=== PATIENT | female | born 1965 | race Caucasian/White ===

== ENCOUNTER 2018-02-26 08:24 | Emergency (ER) | payer OTHER, SELFPAY ==
[2018-02-26 08:24] VITALS: BP 124/75; PULSE 65; RESP 15; TEMP 36.3; O2SAT 99; BMI 23.6
--- NOTE | 2018-02-26 08:35 | ED.VISSUMM ---
- ER Visit Summary Date of Service: 02/26/18 Chief Complaint: Abdominal pain History of Present Illness: The patient is a 53 F presenting with abdominal pain. States it started around 4 AM. She has pain in the epigastric and right upper quadrant. She has nausea with no vomiting. She denies fever. She has had a decreased appetite. Denies history of similar complaints. Physical Examination: Vitals are stable. Patient is afebrile. Alert no acute distress. HEENT exam is unremarkable. Neck is supple. Lungs are clear and equal bilaterally. Heart is regular rate and rhythm. Abdomen is soft RUQ and epigastric tenderness, no rebound or guarding. Extremities are unremarkable. Skin is warm and dry. Remainder of exam is unremarkable. Emergency Department Course and Treatment: Patient given IV fluids, morphine, Zofran. CBC, chemistries unremarkable. Total bili 1.0, lipase 147. Troponin is negative. Delta troponin is negative. EKG is sinus rate of 83 with no acute ischemic changes. Ultrasound of the gallbladder shows small amount of gallbladder sludge without significant wall thickening or pericholecystic fluid. Small anechoic liver cyst. Patient is resting comfortably on repeat evaluation. She is given a prescription for Bentyl and Zofran. She is advised to follow-up with her primary care physician and Dr. Zhang as an outpatient. Advised return to ED for worsening complaints. Disposition: Discharge home Impression: Abdominal pain This note was generated with [employer] dictation software. It may contain incorrect words, spelling, and punctuation that were not noted in review of the chart prior to signing ED Disposition - Plan for ED Patient: Chief Complaint: Abd Pain Instructions: ED Abdominal Pain Unkn Cause Prescriptions: Ondansetron [Zofran Odt] 4 mg PO Q8H PRN PRN #10 tablet PRN Reason: Nausea Dicyclomine HCl [Bentyl] 20 mg PO TIDAC #20 capsule Referrals: Abbe Cabezas DO [Primary Care Provider] - Vadim Zhang MD [STAFF PHYSICIAN] -
[2018-02-26] MEDS: 0.9% Normal Saline 1,000 ML 1000 ML IV (08:57)
[2018-02-26] MEDS: Ondansetron 4 MG/2 ML Vial IV (08:57)
[2018-02-26] MEDS: Morphine 4 MG/ML Syringe IV (08:59)
[2018-02-26 09:06] LABS: Absolute Lymphocyte Count 0.97 X10^3/ul (0.83-4.51); Absolute Neutrophil Count 3.5 X10^3/uL (2.0-7.7); Basophil# 0.01 X10^3/uL; Basophil% 0.2 % (0-1); Eosinophil# 0.05 X10^3/uL; Hematocrit 40.1 % (37-47); Hemoglobin 13.3 g/dl (12.0-15.0); Lymphocyte # 0.97 X10^3/ul (4.0); Lymphocyte % 19.7 % (19-41); Mean Corp Hgb Conc 33.2 g/gl (32-36); Mean Corpuscular Hgb 30.4 pg (27.0-32.0); Mean Corpuscular Volume 91.6 fL (81-99); Mean Platelet Vol. 9.1 fl (6.2-12.0); Monocyte# 0.34 X10^3/uL; Monocyte% 6.9 % (0-10); Neutrophil # 3.54 X10^3/uL (2.7-7.7); POSITIVE COUNT NO; POSITIVE DIFFERENTIAL NO; POSITIVE MORPHOLOGY NO; Platelet Count 217 K/mm3 (150-450); RBC Distribution Width CV 12.4 % (11.6-14.6); RBC Distribution Width SD 41.4 fl (35.1-43.9); Red Blood Count 4.38 M/mm3 (4.2-5.4); White Blood Count 4.9 K/mm3 (4.4-11.0)
[2018-02-26 09:21] LABS: AST(SGOT) 16 U/L (15-37); Alanine Aminotransfer ALT/SGPT 27 U/L (13-56); Albumin, Serum 3.9 g/dL (3.2-5.0); Alkaline Phosphatase 69 U/L (45-117); Anion Gap 7 (5-15); BUN 12 mg/dL (7-18); BUN/Creat Ratio 15.1 RATIO (10-20); Bilirubin, Direct 0.25 mg/dL (0.00-0.30); Calcium,Total 8.8 mg/dL (8.5-10.1); Chloride 112 mmol/L (98-107); EST Glomerular Filtration Rate 81 mL/min (>60); Est Glom Filt Rate - Afr Amer 97 mL/min (>60); Estimated Creatinine Clearance 88.95 ml/min; Globulin 2.8 g/dL (2.2-4.2); Glucose 100 mg/dL (74-106); Lipase 147 U/L (73-393); Potassium 3.9 mmol/L (3.5-5.1); Protein, Total 6.7 g/dL (6.4-8.2); Sodium Level 143 mmol/L (136-145)
[2018-02-26 10:30] VITALS: BP 109/64; PULSE 68; RESP 16; O2SAT 100
[2018-02-26 12:16] VITALS: BP 97/63; PULSE 70; RESP 18; O2SAT 100
--- NOTE | 2018-02-26 12:36 | ED.DEP ---
ED Disposition - Plan for ED Patient: Chief Complaint: Abd Pain Instructions: ED Abdominal Pain Unkn Cause Prescriptions: Ondansetron [Zofran Odt] 4 mg PO Q8H PRN PRN #10 tablet PRN Reason: Nausea RX: Dicyclomine HCl [Bentyl] 20 mg PO TIDAC #20 capsule Referrals: Abbe Cabezas DO [Primary Care Provider] - Vadim Zhang MD [STAFF PHYSICIAN] -
[2018-02-26 12:48] VITALS: BP 97/60; PULSE 70; RESP 14; O2SAT 100
== END 2018-02-26 12:49 | disposition home or self-care (01) ==
PROVIDERS: Emergency Provider Emergency Medicine; Family Provider Student in an Organized Health Care Education/Training Program; PCP Student in an Organized Health Care Education/Training Program
DX: R10.11 Right upper quadrant pain (principal); R10.13 Epigastric pain; G43.909 Migraine, unspecified, not intractable, without status migrainosus; Z79.899 Other long term (current) drug therapy
CPT/HCPCS: 76705; 80048; 80076; 83690; 84484; 85025; 93005; 96361; 96374; 96375; 99283; A4216; J2405

== ENCOUNTER 2018-04-10 15:37 | Emergency (ER) | payer OTHER, SELFPAY ==
[2018-04-10 15:37] VITALS: BP 157/85; PULSE 67; RESP 20; TEMP 36.8; O2SAT 100; BMI 23.8
--- NOTE | 2018-04-10 15:51 | EKG12_ITS ---
Test Reason : CP Blood Pressure : / mmHG Vent. Rate : 066 BPM Atrial Rate : 066 BPM P-R Int : 168 ms QRS Dur : 080 ms QT Int : 404 ms P-R-T Axes : 061 057 061 degrees QTc Int : 423 ms Normal sinus rhythm Normal ECG Confirmed by JAY EVANS, MALLORY ([id number]), video news editor BEBETO BANKS ([id number]) on 04/12/2018 1:55:10 PM Referred By: ESTRADA DANIELLE Confirmed By:MALLORY THOMPSON MD
[2018-04-10] MEDS: Mag Hydrox/Al Hydrox/Simeth 30 ML UDC PO (16:02)
[2018-04-10 16:07] VITALS: BP 121/80; PULSE 64; RESP 16; O2SAT 100
--- NOTE | 2018-04-10 17:10 | ED.VISSUMM ---
- ER Visit Summary Date of Service: 04/10/18 Chief Complaint: Abnormal EKG and chest pressure History of Present Illness: The patient is a 53 F who reports chest pressure that has awakened her from sleep numerous times this past week. She presents today with chest pressure that has been present for the past 8 hours. There is no radiation or associated symptoms. She did complain of sour taste in the back of her throat when she had the chest heaviness that awoke her from sleep. She is scheduled for an EGD by Dr. Casarez. She denies hematemesis, melena hematochezia. She denies food intolerance. She denies exacerbation of her symptoms with exertion, change in position or food. She has no associated symptoms. She denies fever, chills night sweats. Denies weight gain or weight loss. She denies ocular, visual or auditory symptoms. She denies any respiratory symptoms i.e. dyspnea, dyspnea on exertion, orthopnea or PND. She denies dysuria, frequency, urgency or hematuria. She does report left lateral superior pectoralis discomfort that she has had for months. There are no alleviating, exacerbating precipitant factors with regard to that discomfort either. She denies any increased chest pain with movement of arms or breathing. She denies leg pain, swelling discoloration. Physical Examination: Vital signs noted and are marked for an elevated blood pressure 157/85. Head is atraumatic normocephalic. Pupils are equal round reactive. Extraocular muscles are intact. TMs are pearly white with landmarks noted. Nares patent with no drainage. Posterior pharynx without erythema or exudate. Uvula is midline. There is no dysphonia or dysphasia. Trachea is midline. There is no stridor with auscultation of the neck. Heart is regular without murmur, gallop or rub. S1 and S2 are normal. Lungs are clear to auscultation with good movement of air bilaterally. There is no reproducible chest pain. Abdomen is marked for epigastric pain. There is no tenderness right upper quadrant and negative Minor sign. There is no CVA tenderness. There is no dominant bruit or pulsatile mass. There is no asymmetry, swelling, discoloration, leg vein distention, palpable cords or tenderness along the distribution of the deep venous system. Neuro exam is nonfocal. Test Results: With 8 hours of pain and several episodes of hours of pain for the past week a troponin was obtained. She also was given a GI cocktail. Her chest pressure resolved with GI cocktail and troponin is less than 0.015. EKG is normal with a ventricular rate of 66 and a normal VA interval, QRS duration, QT intervals and axis. Emergency Department Course and Treatment: EKG was obtained since the patient was told that her EKG was abnormal. And in light of her history she was treated with GI cocktail and a troponin was obtained since she is a middle-aged woman and may have an atypical presentation. Treatment Plan: Discharge to home and keep appointment with Dr. Casarez for EGD Disposition: Discharged to home Impression: Noncardiac chest pain GERD This note was generated with [employer] dictation software. It may contain incorrect words, spelling, and punctuation that were not noted in review of the chart prior to signing ED Disposition - Plan for ED Patient: Disposition: Home or Assisted Living Chief Complaint: Chest Pain Instructions: ED Chest Pain NonCardiac, ED GERD, Lifestyle Changes for Controlling GERD Referrals: Abbe Cabezas DO [Primary Care Provider] - 1 Week
--- NOTE | 2018-04-10 17:17 | ED.DCSUM_ITS ---
- ER Visit Summary Date of Service: 04/10/18 Chief Complaint: Abnormal EKG and chest pressure History of Present Illness: The patient is a 53 F who reports chest pressure that has awakened her from sleep numerous times this past week. She presents today with chest pressure that has been present for the past 8 hours. There is no radiation or associated symptoms. She did complain of sour taste in the back of her throat when she had the chest heaviness that awoke her from sleep. She is scheduled for an EGD by Dr. Casarez. She denies hematemesis, melena hematochezia. She denies food intolerance. She denies exacerbation of her symptoms with exertion, change in position or food. She has no associated symptoms. She denies fever, chills night sweats. Denies weight gain or weight loss. She denies ocular, visual or auditory symptoms. She denies any respiratory symptoms i.e. dyspnea, dyspnea on exertion, orthopnea or PND. She denies dysuria, frequency, urgency or hematuria. She does report left lateral superior pectoralis discomfort that she has had for months. There are no alleviating, exacerbating precipitant factors with regard to that discomfort either. She denies any increased chest pain with movement of arms or breathing. She denies leg pain, swelling discoloration. Physical Examination: Vital signs noted and are marked for an elevated blood pressure 157/85. Head is atraumatic normocephalic. Pupils are equal round reactive. Extraocular muscles are intact. TMs are pearly white with landmarks noted. Nares patent with no drainage. Posterior pharynx without erythema or exudate. Uvula is midline. There is no dysphonia or dysphasia. Trachea is mi dline. There is no stridor with auscultation of the neck. Heart is regular without murmur, gallop or rub. S1 and S2 are normal. Lungs are clear to auscultation with good movement of air bilaterally. There is no reproducible chest pain. Abdomen is marked for epigastric pain. There is no tenderness right upper quadrant and negative Minor sign. There is no CVA tenderness. There is no dominant bruit or pulsatile mass. There is no asymmetry, swelling, discoloration, leg vein distention, palpable cords or tenderness along the distribution of the deep venous system. Neuro exam is nonfocal. Test Results: With 8 hours of pain and several episodes of hours of pain for the past week a troponin was obtained. She also was given a GI cocktail. Her chest pressure resolved with GI cocktail and troponin is less than 0.015. EKG is normal with a ventricular rate of 66 and a normal SD interval, QRS duration, QT intervals and axis. Emergency Department Course and Treatment: EKG was obtained since the patient was told that her EKG was abnormal. And in light of her history she was treated with GI cocktail and a troponin was obtained since she is a middle-aged woman and may have an atypical presentation. Treatment Plan: Discharge to home and keep appointment with Dr. Casarez for EGD Disposition: Discharged to home Impression: Noncardiac chest pain GERD This note was generated with [employer] dictation software. It may contain incorrect words, spelling, and punctuation that were not noted in review of the chart prior to signing ED Disposition - Plan for ED Patient: Disposition: Home or Assisted Living Chief Complaint: Chest Pain Instructions: ED Chest Pain NonCardiac, ED GERD, Lifestyle Changes for Controlling GERD Referrals: Abbe Cabezas DO [Primary Care Provider] - 1 Week
== END 2018-04-10 18:01 | disposition home or self-care (01) ==
PROVIDERS: Emergency Provider Emergency Medicine; Family Provider Student in an Organized Health Care Education/Training Program; PCP Student in an Organized Health Care Education/Training Program
DX: R07.89 Other chest pain (principal); K21.9 Gastro-esophageal reflux disease without esophagitis
CPT/HCPCS: 84484; 93005; 99283; A4216

== ENCOUNTER 2018-05-28 07:00 | Outpatient (RCR) | payer OTHER, SELFPAY ==
--- NOTE | 2018-04-01 07:57 | HP.PTEVAL ---
Patient's Visit Information SUE JACK is a 53 year old F referred to Physical Therapy by ESTRADA DANIELLE with a diagnosis of Cervicalgia and Migraines. Date of Evaluation: 04/01/18 Physical Therapist: Liliya Lew - Visit Plan Frequency: 2x /Week Duration: 4 Weeks Plan: Dry Needling- Postural correction/exercise and manual - Subjective Subjective: Patient reports that her MD in June wanted her to try not doing Botox. Has been doing Botox for at least a year or possibly 2. 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 DAVIES started after that. Went awhile without Botox and tried to double meds- couldn't handle it and had to go back on Botox. Has tried a lot of things and she is ready to try something. Heat triggers migraines and she has been pretty miserable. Had botox 2 weeks ago- it gave her a lot of relief. Has a slight DAVIES everyday and a big one 2-3x a week. Gets pockets on the head- eye DAVIES stabbing- and ones that come up the back. Does have break through medication and does have to use it. The medication helps but sometimes it takes awhile- gets nausea. Was bucked by a horse last night and she is a little sore today. Muscle pain is in the upper traps on both sides but left is worse than right. DAVIES are mostly on the right. N/T in the hands from the Topomax. The trokendy did not give her side effects. 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 If she can catch them in time she can muscle through. Makes herself keep moving. Once in awhile she gets spots in her vision. PMHx: tumor on spinal cord removed Meds: topomax, treximate as needed. Has been a couple of years since MRI and x-rays. MD is thinking about doing them again. Gets a weird pain down the left side of the chest since 2006- has had heart tests which were negative. Went to ER a few weeks ago and is now fighting Gallbladder. Sleep: disturbed- sometimes can't sleep flat. - Objective Gait: WNL- good arm swing and trunk rotation- does have rounded shoulders. Posture: rounded shoulders, kyphosis, increased thoracic flexion while seated. L shoulder slightly elevated. Leaning to R while seated in chair. Palpation: upper trapezius restriction- significant restriction with cervical musculature. AROM: cervical ROM limited in all directions- flexion: decreased by 50%, Extn: decreased by 25%, SB: decreased by 50% Rot: decreased 50% UE: WNL. Observation: incision along spine - well healed- approx T3-C5. Strength: Scapular: poor, Shoulder: 4+/5 throughout. - Goals Goal 1:: Patient will be I with HEP and progression Goal Time Frame: 4-6 Weeks Goal 2:: Patient will maintain proper posture t/o tx session to demo increase scap s/s. Goal Time Frame: 4-6 Weeks Goal 3:: Patient will report no major DAVIES for 1 week Goal Time Frame: 4-6 Weeks - Rehabilitation Potential Physical Therapy Diagnosis: Patient presents with hypomobility- she has decreased ROM, strength and muscular endurance leading to poor posture and increased pain. Rehabilitation Potential: Good - Anticipated Interventions Patient/Client Instruction: Educate patient on: Benefits of Fitness Program For the Purpose of:: To increase ROM Therapeutic Exercise to Include: Strength training, Endurance training, Body mechanics, Postural training, Scapular Strength/Stabilization For the Purpose of:: To improve muscle performance and motor function Manual Therapy Techniques to Include: Mobilization, Functional dry needling, Soft tissue mobilization For the Purpose of:: To improve nutrient delivery to tissue Thank you for the opportunity to evaluate your patient. For Medicare and Medicare HMO plans, please review the plan of care and approve it. It will need to be FAXED BACK to us at [phone] for Medicare purposes. Please let me know if there are questions or concerns regarding this plan of care. Physician Signature: Date:
== END 2018-05-28 19:00 | disposition home or self-care (01) ==
LOC: PT 07:00
PROVIDERS: Family Provider Student in an Organized Health Care Education/Training Program; PCP Student in an Organized Health Care Education/Training Program
DX: M54.2 Cervicalgia (principal); G43.711 Chronic migraine without aura, intractable, with status migrainosus; G43.719 Chronic migraine without aura, intractable, without status migrainosus
CPT/HCPCS: 97014; 97110; 97140; 97162; G0283

== ENCOUNTER → 2018-07-31 06:52 | Outpatient (CLI) | payer OTHER, SELFPAY ==
[2018-07-03 12:42] VITALS: BMI 24.5
--- NOTE | 2018-07-31 06:54 | ECHOD_ITS ---
Reason For Study: Chest Pain Procedure This was a 2D Doppler, Color Flow transthoracic echocardiogram. Exam performed in department. Left Ventricle Normal LV size. Left ventricular systolic function is normal. The estimated ejection fraction is 60 %. Stage 1 diastolic dysfunction. No regional wall motion abnormalities noted. Right Ventricle Normal RV size. Normal systolic function. Atria Normal left atrium. Normal right atrium. Mitral Valve Normal mitral valve. Tricuspid Valve Normal tricuspid valve. Mild tricuspid valve insufficiency. Aortic Valve Normal aortic valve. Trisinus/trileaflet aortic valve. Pulmonic Valve Normal pulmonic valve. Great Vessels Normal aortic root. The pulmonary artery is normal size. Normal inferior vena cava. Pericardium/Pleural No pericardial effusion. MMode/2D Measurements & Calculations LVIDd: 4.2 cm IVSd: 1.0 cm Ao root diam: 3.2 cm LVIDs: 3.0 cm LVPWd: 0.98 cm RVDd: 3.7 cm FS: 28.6 % LAV(MOD-bp): 32.2 ml LVAd ap4: 25.3 cm2 SV(MOD-sp4): 44.2 ml LAV(MOD-bp) Indexed: 16.7 ml/m2 EDV(MOD-sp4): 69.0 ml LAV(MOD-sp2): 44.9 ml EDV(sp4-el): 70.5 ml LAV(MOD-sp4): 23.3 ml LVAs ap4: 13.5 cm2 ESV(MOD-sp4): 24.8 ml ESV(sp4-el): 24.3 ml EF(MOD-sp4): 64.1 % EF(sp4-el): 65.5 % SV(sp4-el): 46.1 ml LA A4 area: 11.6 cm2 LA dimension(2D): 3.0 cm RA A4 area: 10.7 cm2 Doppler Measurements & Calculations MV E max jozef: 64.7 cm/sec Lat Peak E' Jozef: 8.9 cm/sec Med Peak E' Jozef: 5.3 cm/sec MV A max jozef: 79.8 cm/sec E/E' lat: 7.3 E/E' med: 12.2 MV E/A: 0.81 Ao V2 max: 131.4 cm/sec LV V1 max: 109.3 cm/sec PA V2 max: 112.2 cm/sec Ao max P.9 mmHg LV V1 max P.8 mmHg Ao V2 mean: 92.2 cm/sec Ao mean P.7 mmHg Ao V2 VTI: 27.9 cm TR max jozef: 221.2 cm/sec TR max P.6 mmHg Interpretation Summary Normal LV size. Left ventricular systolic function is normal. The estimated ejection fraction is 60 %. Stage 1 diastolic dysfunction. Ordering Physician: Farooq Navarro Referring Physician: Abbe Malave Performed By: Daija Lui RDCS, RVT
--- NOTE | 2018-07-31 12:49 | STRESSREP ---
Stress Test Report Exercise myocardial perfusion stress test. 53-year-old lady with a history of chest pain. Medications, topiramate rate aspirin magnesium. Stress protocol: Resting EKG demonstrates normal sinus rhythm with a rate of 61 bpm normal intervals are noted resting blood pressure 132/90 mmHg. The patient exercised according to regular Jimi protocol for total duration of 9 minutes the maximum heart rate attained was 150 bpm which was 89% of maximum predicted heart rate the maximum workload was 10.1 metabolic equivalents. The patient maintained sinus rhythm throughout the recording. Patient complained of some chest pain at the beginning and throughout the exercise period. There was no worsening of the discomfort. The resting blood pressure 132/90 with a peak blood pressure 162/82 rate pressure product was 24,300. No clinical angina was noted. Myocardial perfusion protocol. 11.1 mCi of technetium 99m sestamibi was injected at rest. The patient exercised according to regular Jimi protocol for 9 minutes attaining 89% of maximum predicted heart rate at peak exercise 32.4 mCi of technetium 99m sestamibi was injected stress images were obtained stress and rest images were reconstructed and compared in the short axis vertical and horizontal long axis. Gated images were also obtained Perfusion SPECT analysis: Review of the stress images demonstrate normal uptake of tracer noted in all areas of the myocardium. The resting images similarly demonstrate normal uptake of tracer noted in all areas of the myocardium. No areas of reversibility are noted suggest ischemia no previous infarct is noted. Gated SPECT analysis: The gated ejection fraction is noted to be 62%. Conclusion: Normal exercise myocardial perfusion stress test at a high workload. Atypical chest discomfort. Preserved ejection fraction.
--- OUTSIDE RECORDS SUMMARY | 2018-10-04 22:17 | XMS RPT_ITS ---
:1965 Author Organization [place] Care Team Providers Name Role Phone CABEZAS, ABBE L Referring Unavailable CECILIA KIRBY (CLAIM PROCESSOR) Attending Unavailable CABEZAS, ABBE L Referring Unavailable DANIELLE, ESTRADA P Attending Unavailable DANIELLE, ESTRADA P Referring Unavailable CASAREZ, DINA LINDY Admitting Unavailable CASAREZ, DINA LINDY Attending Unavailable CABEZAS, ABBE L Referring Unavailable ROSY GRANADOS ([place]) Attending Unavailable DANIELLE, ESTRADA P Attending Unavailable CORNIELLO, ROSY L (CLAIM PROCESSOR) Attending Unavailable CORNIELLO, ROSY L (CLAIM PROCESSOR) Referring Unavailable CASAREZ, DINA LINDY Admitting Unavailable CASAREZ, DINA LINDY Attending Unavailable PHYLLIS ZHANG Referring Unavailable ROSY GRANADOS (PA) Attending Unavailable CABEZAS, ABBE L Referring Unavailable HONEY BREWER ([facility]) Attending Unavailable DANIELLE, ESTRADA P Attending Unavailable HONEY BREWER ([facility]) Referring Unavailable DANIELLE, ESTRADA P Referring Unavailable Joan Tran Attending Unavailable Melanie, Arrey Attending Unavailable Cabezas, Abbe Referring Unavailable Cabezas, Abbe Primary Care Unavailable Shayy Sales Attending Unavailable [place] Attending Unavailable [place] Referring Unavailable Cabezas, Abbe Primary Care Unavailable [place] Consulting Unavailable Melanie, Arrey Attending Unavailable Melanie, Arrey Referring Unavailable Cabezas, Abbe Primary Care Unavailable Melanie, Farooq Attending Unavailable Melanie, Arrey Referring Unavailable Cabezas, Abbe Primary Care Unavailable Melanie, Arrey Consulting Unavailable Cabezas, Abbe Primary Care Unavailable AnguloJacques vasques Attending Unavailable PROBLEMS PROBLEMS DATE TYPE CONDITION / CODE ATTENDING STATUS SOURCE 07/31/2018 Unknown R07.9 - Chest Melanie, Arrey Active [place] pain, unspecified Community / R07.9(ICD-10) Hospital Repository 03/17/2008 Active Cervicalgia / NA Active [facility] M54.2(ICD-10) [facility] [place] Repository 07/11/2018 Active Chest pain, NA Active [facility] unspecified / [facility] [place] R07.9(ICD-10) Repository 07/11/2018 Active Spinal stenosis, NA Active [facility] cervical region / [facility] [place] M48.02(ICD-10) Repository 07/11/2018 Active Radiculopathy, NA Active [facility] cervical region / [facility] [place] M54.12(ICD-10) Repository 07/11/2018 Active Benign neoplasm NA Active [facility] of spinal [facility] [place] meninges / Repository D32.1(ICD-10) 07/02/2018 Active Mastodynia / NA Active [facility] N64.4(ICD-10) [facility] [place] Repository 05/28/2018 Unknown M54.2 - [place] Active [place] Cervicalgia / Community M54.2(ICD-10) Hospital Repository 04/24/2018 Active Unspecified DINA CASAREZ Active [facility] abdominal pain / LINDY [place] R10.9(ICD-10) Repository 01/24/2018 Active Encounter for DINA CASAREZ Active [facility] screening for LINDY [facility] [place] malignant Repository neoplasm of colon / Z12.11(ICD-10) 08/15/2017 Active Unknown / KOFI CECILIA Active [facility] UNK(Unknown) (CLAIM PROCESSOR) [facility] [place] Repository 08/15/2017 Active Encounter for NA Active [facility] screening [facility] [place] mammogram for Repository malignant neoplasm of breast / Z12.31(ICD-10) PROCEDURES PROCEDURES No Procedure Records FoundRESULTS RESULTS STRESS REPORT Observed: 07/31/2018 Status: F Source: [place] 12:51 PM [facility] REPOSITORY [facility] Cardiovascular Services [address] [place] [address] MR#: [id number] Acct: [id number] Name: AMERICO JACK Rep #: [id number] : 1965 53 From: Farooq Navarro MD Primary Care: Abbe Malave DO Status: REG CLI Ordering Dr: Sex: F C Stress Test Report Exercise myocardial perfusion stress test. 53-year-old lady with a history of chest pain. Medications, topiramate rate aspirin magnesium. Stress protocol: Resting EKG demonstrates normal sinus rhythm with a rate of 61 bpm normal intervals are noted resting blood pressure 132/90 mmHg. The patient exercised according to regular Jimi protocol for total duration of 9 minutes the maximum heart rate attained was 150 bpm which was 89% of maximum predicted heart rate the maximum workload was 10.1 metabolic equivalents. The patient maintained sinus rhythm throughout the recording. Patient complained of some chest pain at the beginning and throughout the exercise period. There was no worsening of the discomfort. The resting blood pressure 132/90 with a peak blood pressure 162/82 rate pressure product was 24,300. No clinical angina was noted. Myocardial perfusion protocol. 11.1 mCi of technetium 99m sestamibi was injected at rest. The patient exercised according to regular Jimi protocol for 9 minutes attaining 89% of maximum predicted heart rate at peak exercise 32.4 mCi of technetium 99m sestamibi was injected stress images were obtained stress and rest images were reconstructed and compared in the short axis vertical and horizontal long axis. Gated images were also obtained Perfusion SPECT analysis: Review of the stress images demonstrate normal uptake of tracer noted in all areas of the myocardium. The resting images similarly demonstrate normal uptake of tracer noted in all areas of the myocardium. No areas of reversibility are noted suggest ischemia no previous infarct is noted. Gated SPECT analysis: The gated ejection fraction is noted to be 62%. Conclusion: Normal exercise myocardial perfusion stress test at a high workload. Atypical chest discomfort. Preserved ejection fraction. 07/31/18 1251 <Electronically signed by Farooq Navarro MD> Date Farooq Navarro MD CC: Farooq Navarro MD; Abbe Malave DO Date Dictated: 07/31/18 1249 Date Transcribed: 07/31/18 1249 Entry Table Operator: CO Signed ECHOCARDIOGRAM COMPLETE Observed: 07/31/2018 Status: F Source: [place] 12:26 PM [facility] REPOSITORY [facility] Cardiovascular Services [address] [place] [id number] Echo Complete 07/31/18 0900 MR#: [id number] Acct: [id number] Name: AMERICO JACK Rep #: [id number] : 1965 53 From: aFrooq Navarro MD Attending Dr: Farooq Navarro MD Status: REG CLI Ordering Dr: Farooq Navarro MD Date: 07/31/18 Location: [facility] Sex: F C Admitted: Reason For Study: Chest Pain Procedure This was a 2D Doppler, Color Flow transthoracic echocardiogram. Exam performed in department. Left Ventricle Normal LV size. Left ventricular systolic function is normal. The estimated ejection fraction is 60 %. Stage 1 diastolic dysfunction. No regional wall motion abnormalities noted. Right Ventricle Normal RV size. Normal systolic function. Atria Normal left atrium. Normal right atrium. Mitral Valve Normal mitral valve. Tricuspid Valve Normal tricuspid valve. Mild tricuspid valve insufficiency. Aortic Valve Normal aortic valve. Trisinus/trileaflet aortic valve. Pulmonic Valve Normal pulmonic valve. Great Vessels Normal aortic root. The pulmonary artery is normal size. Normal inferior vena cava. Pericardium/Pleural No pericardial effusion. MMode/2D Measurements AND Calculations LVIDd: 4.2 cm IVSd: 1.0 cm Ao root diam: 3.2 cm LVIDs: 3.0 cm LVPWd: 0.98 cm RVDd: 3.7 cm FS: 28.6 % LAV(MOD-bp): 32.2 ml LVAd ap4: 25.3 cm2 SV(MOD-sp4): 44.2 ml LAV(MOD-bp) Indexed: 16.7 ml/m2 EDV(MOD-sp4): 69.0 ml LAV(MOD-sp2): 44.9 ml EDV(sp4-el): 70.5 ml LAV(MOD-sp4): 23.3 ml LVAs ap4: 13.5 cm2 ESV(MOD-sp4): 24.8 ml ESV(sp4-el): 24.3 ml EF(MOD-sp4): 64.1 % EF(sp4-el): 65.5 % SV(sp4-el): 46.1 ml LA A4 area: 11.6 cm2 LA dimension(2D): 3.0 cm RA A4 area: 10.7 cm2 Doppler Measurements AND Calculations MV E max yanelis: 64.7 cm/sec Lat Peak E' Yanelis: 8.9 cm/sec Med Peak E' Yanelis: 5.3 cm/sec MV A max yanelis: 79.8 cm/sec E/E' lat: 7.3 E/E' med: 12.2 MV E/A: 0.81 Ao V2 max: 131.4 cm/sec LV V1 max: 109.3 cm/sec PA V2 max: 112.2 cm/sec Ao max P.9 mmHg LV V1 max P.8 mmHg Ao V2 mean: 92.2 cm/sec Ao mean P.7 mmHg Ao V2 VTI: 27.9 cm TR max yanelis: 221.2 cm/sec TR max P.6 mmHg Interpretation Summary Normal LV size. Left ventricular systolic function is normal. The estimated ejection fraction is 60 %. Stage 1 diastolic dysfunction. Ordering Physician: Farooq Navarro Referring Physician: Abbe Malave Performed By: Daija Lui, AUDRA, RVT 07/31/18 1225 Date Farooq Navarro MD CC: Farooq Navarro MD; Abbe Malave DO Date Dictated: 07/31/18 0900 Date Transcribed: 07/31/181224 Entry Table Operator: Signed MRI CERVICAL SPINE Observed: 07/11/2018 Status: F Source: [place] WO/W IVCON 8:45 AM [facility] REPOSITORY * * *Final Report* * * DATE OF EXAM: Jul 11 2018 8:45AM [facility] 0298 - MRI CERVICAL SPINE WO/W IVCON / PROCEDURE REASON: multiple diagnoses * * * * Physician Interpretation * * * * EXAMINATION: MRI CERVICAL SPINE WO/W IVCON CLINICAL HISTORY: Spinal stenosis of cervical region. Radiculopathy, cervical region. Cervicalgia. TECHNIQUE: Routine cervical spine MR protocol without gadolinium. MQ: [id number] COMPARISON: MRI cervical 07/30/2013 from outside institution Cervical spine radiographs 07/23/2013 RESULT: Images are mildly compromised by motion artifact on several sequences. Counting reference: Craniocervical junction. Anatomic Variants: None. Alignment: Alignment is anatomic. Craniocervical junction: Craniocervical junction is normal. Cord: The visualized cord is within normal limits of signal intensity and morphology. Bone marrow signal/fracture: No evidence of pathologic marrow infiltration. No evidence of prior fracture. Cervical soft tissues: The paraspinal soft tissues are within normal limits. C2-C3: Canal and foramina are patent. C3-C4: Canal and foramina are patent. C4-C5: Canal and foramina are patent. C5-C6: Mild disc degeneration without significant canal stenosis. Uncinate and facet hypertrophy contribute to moderate right neural foraminal narrowing. Mild left neural foraminal narrowing. Findings at this level are stable. C6-C7: Canal and foramina are patent. C7-T1: Canal and foramina are patent. IMPRESSION: Mild degenerative change at C5-C6 contributing to moderate right neural foraminal narrowing and mild left neural foraminal narrowing. No significant canal stenosis. The appearance is stable compared with 07/30/2013 exam. Anatomic Variant: None. Assume 7 cervical vertebrae with counting from the craniocervical junction. Entry Table Operator: PSCB Transcribe Date/Time: Jul 11 2018 10:01A Dictated by : RACHEL BROWN MD This examination was interpreted and the report reviewed and electronically signed by: RACHEL BROWN MD on Jul 11 2018 10:06AM EST [id number] PROGRESS Observed: 07/11/2018 Status: COMPLETED Source: [place] 8:36 AM [facility] REPOSITORY O ID: [id number] Author: Mayela (Rt) Ciaran Pedroza Service: (none) Author Type: Manager Economic Type: Progress Notes Filed: 07/11/2018 8:37 AM Note Text: Radiology Service Progress Note PATIENT NAME: Americo Jack DATE OF SERVICE: July 11, 2018 TIME: 8:36 AM PATIENT IDENTITY VERIFICATION COMPLETED USING TWO (2) METHODS: Patient confirmed name verbally and Date of . PATIENT GENDER DATA: Female. status: : No status: NO. PATIENT RELEVANT IMPLANT DATA REVIEWED: Yes CONTRAST INDUCED NEPHROPATHY RISK FACTORS: Not applicable CREATININE: Creatinine Date Value Ref Range Status 03/05/2017 0.90 0.58 - 0.96 mg/dL Final 06/20/2016 0.95 0.58 - 0.96 mg/dL Final 05/07/2013 0.80 0.70 - 1.40 mg/dL Final eGFR-All Other Races Date Value Ref Range Status 03/05/2017 >60 . Final Comment: eGFR (Estimated GFR) Units of measure: mL/min/1.73 meters squared eGFR is derived from the reexpressed MDRD Study equation using the following parameters: serum creatinine, age, gender and race. The creatinine assay has been calibrated to be traceable to IDMS. An eGFR <60 mL/min/1.73m2 for >3 months is consistent with chronic kidney disease. Refer to KDOQI guidelines for clinical interpretation. In patients with unstable renal function, e.g. those with acute kidney injury, the eGFR may not accurately reflect actual GFR. eGFR- Date Value Ref Range Status 03/05/2017 >60 Final P.O.C.T. RESULTS: N/A July 11, 2018 RADIOLOGIST NOTIFIED?: No ALLERGIES: Reviewed and unchanged CONTRAST ALLERGY: NO. PERIPHERAL IV ACCESS: Ambulatory: IV type: A peripheral IV was started in the Right antecubital site with a Angio cath: 22 gauge., Site assessment: Clean,Dry and Intact, Site disposition Discontinued RADIOLOGY DEPARTMENT: MR; Exam(s) Completed: Spine: Cervical spine SIGNED BY: RT Teagan July 11, 2018 8:36 AM CARDIOLOGY VISIT Observed: 07/03/2018 Status: F Source: [place] REPORT 4:23 PM [facility] REPOSITORY [facility] [address] [place] [address]. [address] [place] [address] OFFICE VISIT Date of Service: 07/03/18 MR#: [id number] Acct: [id number] Name: AMERICO JACK Rep #: [id number] : 1965 Provider: Farooq Navarro MD Age/Sex: 53/F [place] [facility] [place]: Signed HPI HPI Chief Complaint: Initial visit Details: AMERICO JACK, is a 53 F who presents to the office today for an initial visit. She is a lady with a history of anxiety, chronic migraine, who has been having some chest discomfort which she says is a squeezing sensation along the left side of her chest occasionally has had jaw discomfort. She dates this back to 2005 when she was evaluated with an echo, a TOMEKA as well as what appears to be a CAT scan. It appears to be more frequent now waking her up at night intermittent not necessarily related to exertion. Sometimes is constant and can last about half an hour. She has not had any dizziness or diaphoresis no near syncope or syncope. Her calcium score in 2005 was 0. Her echocardiogram demonstrated ejection fraction of 65% with a patent foramen ovale. She did undergo a stress test where she exercised to 13.0 metabolic equivalents. Her physical exam at the moment demonstrates clear lung herr regular rate and rhythm and no pedal edema. Her electric cardiogram demonstrates normal sinus rhythm with occasional premature ventricular complexes only. 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 Allergies morphine Allergy (Verified 07/03/18 12:42) TACHYCARDIA Medications Topiramate [Trokendi Xr] 100 mg PO DAILY 02/26/18 [History Confirmed 07/03/18] aspirin 81 mg tablet,delayed release 81 mg PO DAILY 07/03/18 [History Confirmed 07/03/18] lactobacillus combination no.8 3 billion cell capsule 3,000 mmu cells PO DAILY 07/03/18 [History Confirmed 07/03/18] magnesium oxide 500 mg tablet 500 mg PO DAILY tab 07/03/18 [History Confirmed 07/03/18] riboflavin (vitamin B2) 5 mg tablet mg PO tab 07/03/18 [History Confirmed 07/03/18] PFSH Medical History PFO (patent foramen ovale) (Chronic) Anxiety (Chronic) Cervicalgia (Chronic) Cholelithiasis (Chronic) IBS (irritable bowel syndrome) (Chronic) Meningioma, spinal (Chronic) Migraine (Chronic) TMJ (temporomandibular joint disorder) (Chronic) Surgical History History of hand surgery (Resolved) History of laminectomy (Resolved) History of tubal ligation (Resolved) Family History Father CAD (coronary artery disease) CABG Mother Hypertension Social History Smoking Status: Never smoker ROS Const Const: Positive for headache(s) (migraines twice a week); negative for fatigue, weakness, difficulty sleeping, frequent falls or excessive sweating Eyes Eyes: Negative for loss of peripheral vision, transient loss of vision, blurry vision, tunnel vision or double vision ENT ENT: Positive for headache(s) (migraines twice a week); negative for dizziness, Nosebleed/epistaxis or balance problems Cardio Chest Pain: Yes (Has had left sided chest pain for several years) Frequency: daily Character: other (ache) Onset: at rest, exercise, positional (worse when laying down at night) Location: left chest Palpitations: No Edema: None Muscle aches with walking: None Resp Respiratory: Negative for SOB with activity, SOB at rest, SOB orthopnea\SOB lying down, paroxysmal nocturnal dyspnea or Cough GI GI: Negative nausea, heartburn, black,tarry stools or vomiting : Negative for hematuria Musc Musc: Negative for balance problems, muscle aches/ myalgia, muscle weakness or joint pain Skin Skin: Negative non-healing lesions, unusual bruising or rash Neuro Neuro: Positive for headache(s) (migraines twice a week); negative for weakness, frequent falls, blurry vision, double vision, dizziness, lightheadedness, orthostatic symptoms, near syncope, syncope or lack of coordination Jovan Hematologic/Lymphatic: Negative for easy bruising or easy bleeding Endo Endo: Negative for fatigue, excessive sweating or increased thirst/drinking Psych Psych: Negative for anxiety or depression Allergy Allergy/Immunology: Negative for hives, Negative for rash Cardiology Exam Const Appearance: cooperative, healthy appearing, well developed, well groomed and no acute distress Nutritional Appearance: well nourished and average body habitus Orientation: alert, awake and oriented x3 Head Head: normal to inspection, normocephalic and atraumatic Ears: hearing grossly normal bilaterally and external ears normal Nose: external nose normal, nasal mucous membranes and turbinates normal, nares normal, septum normal, no nasal discharge Face and Sinus: face symmetric Mouth: oral mucosae normal, tongue normal, oropharynx normal and moist mucous membranes Teeth and gingiva: dentition normal Throat: posterior oropharynx normal, tonsils normal and uvula midline Eyes General: appearance normal, both eyes and all related structures Eyelids: eyelids normal Conjunctivae: conjunctivae normal Pupils: PERRL, normal by confrontation and accommodation normal EOM: EOM intact bilaterally Neck Neck: normal visual inspection, trachea midline and no JVD JVD: +5 Carotids: normal carotid upstroke and bounding pulses Chest Chest inspection: normal inspection of the chest, symmetric chest movement and normal respiratory effort Auscultation: Bilateral: Clear to Auscultation Cardio Palpation: normal PMI Rate: regular rate Rhythm: regular rhythm Heart sounds: S1 normal, S2 normal and normal, physiologic split S2; negative rub, gallop or murmur GI GI: normal to inspection, soft, no hepatosplenomegaly and bowel sounds present Neuro General: alert, awake, oriented x3, no focal sensory deficit, gait normal and moves all extremities Skin Skin: no rashes or lesions noted Extremities Pulses: Normal: Right Femoral Pulse, Left Femoral Pulse, Right Dorsalis Pedis Pulse, Left Dorsalis Pedis Pulse, Right Posterior Tibial Pulse, Left Posterior Tibial Pulse, Right Radial Pulse, Left Radial Pulse Lower Extremity Edema: None: Bilateral Musculoskel Musculoskeletal: No joint tenderness Psych Psychological: normal affect Assessment AND Plan 1. Chest pain R07.9 Plan She does have chest discomfort which has some atypical features. She does not have any significant concerning risk factors. My recommendation at this time will be for us to obtain an echocardiogram as well as an exercise stress test or stress echocardiogram to see whether this can be reproduced. If significant ischemia is noted then other recommendations can be made. In the meantime I would continue with expectant management. Thank you for allowing me to participate in the care of your patient. 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) Coding Level of Care Code Off vis,new,level 4 Diagnoses Chest pain R07.9 Coding Level of Care Code Off vis,new,level 4 Diagnoses Chest pain R07.9 07/03/18 1623 <Electronically signed by Farooq Navarro MD> Date Farooq Navarro MD Cosigner Signature: Date (if applicable) CC: DO JACK Franks Observed: 07/02/2018 Status: COMPLETED Source: [place] 3:57 PM [facility] REPOSITORY HNO ID: [id number] Author: Mammography Coordinator Service: (none) Author Type: Physician Type: Letter Filed: 07/03/2018 11:32 PM Note Text: July 02, 2018 PID: [id number] Americo Jack [address] [place] [address] Dear Ms. Jack, We are pleased to inform you that the results of your recent breast imaging exam on 07/02/2018 are normal and we recommend that you return to your annual screening Mammography schedule. Early detection of cancer is very important. We also understand recommendations regarding breast cancer screening are controversial. Please discuss with your primary care provider which strategy is best for you and whether a mammogram is right for you. Your imaging studies and report will be kept on file at [facility] as part of your permanent medical record and are available for your continuing care. Thank you for allowing us to help in meeting your health care needs. Sincerely, Dr. Sahni Interpreting Radiologist [facility] (Return to Annual Mammogram schedule) PROGRESS Observed: 07/02/2018 Status: COMPLETED Source: [place] 3:52 PM [facility] REPOSITORY HNO ID: [id number] Author: Aspen Shipman Service: (none) Author Type: (none) Type: Progress Notes Filed: 07/02/2018 3:53 PM Note Text: Radiology Service Progress Note PATIENT NAME: Americo Jack DATE OF SERVICE: July 02, 2018 TIME: 3:52 PM PATIENT IDENTITY VERIFICATION COMPLETED USING TWO (2) METHODS: Patient confirmed name verbally and Date of . PATIENT GENDER DATA: Female. status: : No status: NO. PATIENT RELEVANT IMPLANT DATA REVIEWED: Not Applicable RADIOLOGY DEPARTMENT: Women's Health adeola diag mammogram PERIPHERAL IV DATA: Not applicable SIGNED BY: Aspen Shipman July 02, 2018 3:52 PM [facility] Observed: 07/02/2018 Status: F Source: [place] 3:27 PM [facility] REPOSITORY * * *Final Report* * * DATE OF EXAM: Jul 02 2018 3:27PM NIMO 0620 - [facility] / PROCEDURE REASON: Bilateral mastodynia * * * * Physician Interpretation * * * * RESULT: #[id number] - [facility] BILATERAL DIGITAL DIAGNOSTIC MAMMOGRAM WITH CAD: 07/02/2018 HISTORY: Bilateral Mastodynia /priors available for comparison. RESULT: TECHNIQUE: The study was acquired using full field digital technology and interpreted from soft copy. Current study was also evaluated with a Computer Aided Detection (CAD). No prior exams were available for comparison. There are scattered fibroglandular elements in both breasts. No significant masses, calcifications, or other findings are seen in either breast. IMPRESSION: There is no abnormality seen in either breast to correspond with the pain, however, clinical correlation is recommended. There is no mammographic evidence of malignancy. Return to annual mammogram screening schedule is recommended. Ruthann piedra/daniel:07/02/2018 15:57:36 Manipulator Operator(s): RT Zoe(R)(M), [facility] letter sent: Return to Annual Mammogram BI-RADS: 1 Negative Multiple national specialty organizations have released breast cancer screening guidelines for women at average risk for developing breast cancer - guidelines that are based on both evidence and opinion, yet differ on when to start and how often to screen for breast cancer. With representation from Breast Imaging, Internal Medicine, Women's Health, Family Medicine, and Medical/Surgical Oncology, the [facility] has carefully reviewed the data and reached the following consensus: 1) All women should engage in shared decision-making with their providers to decide when to start and how often to screen; 2) All women should have the opportunity to start screening mammography at age 40; 3) For women ages 45-55, we recommend annual screening mammograms; 4) For women ages 55 and over, we support both the transition from an annual to a biennial interval if this aligns more with patient's values and preferences, or continuation with annual screening; 5) All women should discuss with their providers when to stop screening mammograms. Entry Table Operator: Daniel Transcribe Date/Time: Jul 02 2018 3:22P Dictated by: RUTHANN SAHNI MD This examination was interpreted and the report reviewed and electronically signed by: RUTHANN SAHNI MD on Jul 02 2018 3:57PM EST [id number] PROGRESS Observed: 06/27/2018 Status: COMPLETED Source: [place] 9:07 AM [facility] REPOSITORY O ID: [id number] Author: Esrtada Danielle Service: (none) Author Type: Physician Type: Progress Notes Filed: 06/27/2018 1:15 PM Note Text: Headache Center - Follow-up Visit ASSESSMENT: 53?year old female with history significant for anxiety, migraine, neck pain, cervical meningioma s/p C5-T1 laminectomy, and chronic daily headache consistent with chronic migraine with contributions from chronic cervical musculoskeletal pain, and L TMJ pain/dysfunction. She does well with Botox, going from potentially 30 days of headache per month down 7?days at best with much less intensity. Trokendi seems to have provided additional benefit, and she tolerates it much better than Topamax. ? PLAN: (Please see typed patient instructions for detailed instructions) --->?Acute Treatment: -Recommended avoiding triptan until stress test/cardiac eval for chest pain. This has been a long standing issue issue, but worth excluding cardiac. It could also be anxiety or perhaps costochondritis. ?? --->?Preventive Treatment: -Trokendi 100 mg daily. -Aimovig discussed and we will try this instead of repeating Botox today to avoid insurance interference with approval. If she gets miserable in the next couple weeks, we can try to get her back in for Botox, but she'll need to do it with a PA/CERT OCCUPATIONAL THERAPY ASST if available. ? ---> Cervical MRI with contrast for neck, L arm/jaw discomfort, L chest pain, cervical radiculopathy, and history of cervical meningioma s/p resection. ---> I also placed a referral to cardiology to rule out cardiac causes of L arm/chest, jaw discomfort (although chronic and reports prior cardiac evals neg). We discussed going to ER if the pain is worsening or new associated symptoms are occurring. ? --->?Follow-up: 3?months. Last Visit: 03/20/18 Interval Headache Hx: Has had some benefit with dry needling. Neck PT was making headaches much worse. Still worsening neck pain on L which she feels contributes to headaches. Still getting the L chest pain, which has been a chronic issue and on and off. Seen in the ED recently for the CP and d/c with dx of GERD, which she doesn't feel is accurate. 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 CALCIUM CARBONATE/VITAMIN D3 (VITAMIN D-3 ORAL) Take by mouth once daily. dicyclomine (BENTYL) 10 mg capsule Take 1-2 capsules by mouth three times daily with meals. dicyclomine (BENTYL) 10 mg capsule TAKE 2 CAPSULES 3 TIMES A DAY BEFORE MEALS magnesium oxide 400 mg ORAL tablet Take one(1) tablet daily. Omeprazole (PRILOSEC) 40 mg capsule Take 1 capsule by mouth once daily. ondansetron orally disintegrating (ZOFRAN ODT) 4 mg disintegrating tablet Take by mouth. TAKE 1 TABLET BY MOUTH EVERY 8 HOURS NEEDED FOR NAUSEA riboflavin, vitamin B2, (VITAMIN B-2) 100 mg tab Take 100 mg by mouth four times daily. SUMAtriptan (IMITREX) 100 mg tablet Take 1 tab at migraine onset. November repeat once in 2 hours if needed. Give max allowed per insurance. SUMAtriptan-Naproxen (TREXIMET) 85-500 mg per tablet Take 1 tab at migraine onset. May repeat once in 2 hours if needed. Give max allowed per insurance. topiramate (TROKENDI XR) 100 mg cp24 Take 100 mg at bedtime daily. ZEMBRACE SYMTOUCH 3 mg/0.5 mL pnij 1 injection at migraine onset. May repeat once in 2 hours if needed. No current facility-administered medications for this visit. REVIEW OF SYSTEMS: Review of system : unchanged from the previous visit (sleep patterns, mood, energy, appetite, stress, exercising). Physical Examination: BP 111/73 Pulse 62 Wt 76.7 kg (169 lb) BMI 24.25 kg/m? GEN: Alert. NAD. Normal affect. Cooperative. NEUROLOGICAL: A+O x 3. Attentive. Thought process and content unremarkable. Follows commands appropriately. Speech fluent. Estrada Danielle DO [facility] [place] Department of Neurology [place] [facility] - Headache and Chronic Pain Medicine [address] [place] [address] Pager [phone] Total time in minutes spent with patient, reviewing records, imaging, labs, and documentin with more than 50% of the time spent in patient education/counselling/coordinating care with the patient. cc: Abbe Cabezas DO [address] [place] [phone] CNOV Observed: 06/27/2018 Status: COMPLETED Source: [place] 9:00 AM [facility] REPOSITORY Office Visit (NEURBR) AMERICO JACK ([id number]) 1965 F Date Time Provider Department 06/27/18 9:00 AM ESTRADA DANIELLE During your visit today, we recorded the following information about you: Pulse Blood pressure Weight 62/minute 111/73 76.7 kg Estrada Danielle DO 06/27/2018 1:15 PM Signed Headache Center - Follow-up Visit ASSESSMENT: 53?year old female with history significant for anxiety, migraine, neck pain, cervical meningioma s/p C5-T1 laminectomy, and chronic daily headache consistent with chronic migraine with contributions from chronic cervical musculoskeletal pain, and L TMJ pain/dysfunction. She does well with Botox, going from potentially 30 days of headache per month down 7?days at best with much less intensity. Trokendi seems to have provided additional benefit, and she tolerates it much better than Topamax. ? PLAN: (Please see typed patient instructions for detailed instructions) --->?Acute Treatment: -Recommended avoiding triptan until stress test/cardiac eval for chest pain. This has been a long standing issue issue, but worth excluding cardiac. It could also be anxiety or perhaps costochondritis. ?? --->?Preventive Treatment: -Trokendi 100 mg daily. -Aimovig discussed and we will try this instead of repeating Botox today to avoid insurance interference with approval. If she gets miserable in the next couple weeks, we can try to get her back in for Botox, but she'll need to do it with a PA/CERT OCCUPATIONAL THERAPY ASST if available. ? ---> Cervical MRI with contrast for neck, L arm/jaw discomfort, L chest pain, cervical radiculopathy, and history of cervical meningioma s/p resection. ---> I also placed a referral to cardiology to rule out cardiac causes of L arm/chest, jaw discomfort (although chronic and reports prior cardiac evals neg). We discussed going to ER if the pain is worsening or new associated symptoms are occurring. ? --->?Follow-up: 3?months. Last Visit: 03/20/18 Interval Headache Hx: Has had some benefit with dry needling. Neck PT was making headaches much worse. Still worsening neck pain on L which she feels contributes to headaches. Still getting the L chest pain, which has been a chronic issue and on and off. Seen in the ED recently for the CP and d/c with dx of GERD, which she doesn't feel is accurate. 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 CALCIUM CARBONATE/VITAMIN D3 (VITAMIN D-3 ORAL) Take by mouth once daily. dicyclomine (BENTYL) 10 mg capsule Take 1-2 capsules by mouth three times daily with meals. dicyclomine (BENTYL) 10 mg capsule TAKE 2 CAPSULES 3 TIMES A DAY BEFORE MEALS magnesium oxide 400 mg ORAL tablet Take one(1) tablet daily. Omeprazole (PRILOSEC) 40 mg capsule Take 1 capsule by mouth once daily. ondansetron orally disintegrating (ZOFRAN ODT) 4 mg disintegrating tablet Take by mouth. TAKE 1 TABLET BY MOUTH EVERY 8 HOURS NEEDED FOR NAUSEA riboflavin, vitamin B2, (VITAMIN B-2) 100 mg tab Take 100 mg by mouth four times daily. SUMAtriptan (IMITREX) 100 mg tablet Take 1 tab at migraine onset. May repeat once in 2 hours if needed. Give max allowed per insurance. SUMAtriptan-Naproxen (TREXIMET) 85-500 mg per tablet Take 1 tab at migraine onset. May repeat once in 2 hours if needed. Give max allowed per insurance. topiramate (TROKENDI XR) 100 mg cp24 Take 100 mg at bedtime daily. ZEMBRACE SYMTOUCH 3 mg/0.5 mL pnij 1 injection at migraine onset. May repeat once in 2 hours if needed. No current facility-administered medications for this visit. REVIEW OF SYSTEMS: Review of system : unchanged from the previous visit (sleep patterns, mood, energy, appetite, stress, exercising). Physical Examination: BP 111/73 Pulse 62 Wt 76.7 kg (169 lb) BMI 24.25 kg/m? GEN: Alert. NAD. Normal affect. Cooperative. NEUROLOGICAL: A+O x 3. Attentive. Thought process and content unremarkable. Follows commands appropriately. Speech fluent. Estrada Danielle DO [facility] [place] Department of [facility] - [facility] and Chronic Pain Medicine [address] [place] [phone] Pager [phone] Total time in minutes spent with patient, reviewing records, imaging, labs, and documentin with more than 50% of the time spent in patient education/counselling/coordinating care with the patient. cc: Abbe Cabezas DO [address] [place] [id number] Referring Provider: SELF [[id number]] Allergies As of Date: 06/27/2018 Noted Allergy Reaction MORPHINE 03/05/2018 14 - Other: See Comments Comments: Heart palpitations Date Reviewed: 06/27/2018 Reviewed by: Estrada Danielle - Fully Assessed Reason for Visit: Botox Injection [373] Primary Visit Diagnosis:Cervicalgia [M54.2] Other Visit Diagnoses:Chest pain, unspecified type [R07.9] Spinal stenosis of cervical region [M48.02] Radiculopathy, cervical region [M54.12] Chronic migraine without aura, with intractable migraine, so stated, with status migrainosus [G43.711] Intractable chronic migraine without aura and without status migrainosus [G43.719] Spinal meningioma (HCC) [D32.1] Order(s):CONSULT TO CARDIOLOGY [9004] Order #: [id number]: 1 Diclofenac Potassium (CAMBIA) 50 mg pwpk1 packet in water at migraine onset. May repeat every 8 hours as needed.Disp: 9 PacketRfl: 11 erenumab-aooe (AIMOVIG AUTOINJECTOR) 70 mg/mL AutoInjectorInject 70 mg subcutaneously once every month.Disp: 1 SyringeRfl: 11 MRI CERVICAL SPINE WO/W IVCON [[id number]] Order #: [id number] FUTURE iv contrast (will be provided with radiology test)MRI CSP Inject, intravenously, once for 1 dose. No IV access, insert saline lock prior to the beginning of sedation, infusion, injection of imaging exam. Discontinue saline lock post exam. If Pt. has a central line or IVAD, may access for administration according to line specific nursing protocol. Once exam is complete flush line and de- access according to line specific nursing protocol in the MR contrast administration guidelines link.Disp: 1 EachRfl: 0 Prescriptions as of 06/27/2018 Sig: PROBIOTIC DIGESTIVE CARE ORAL Take by mouth. VITAMIN D-3 ORAL Take by mouth once daily. DICYCLOMINE 10 MG CAPSULE Take 1-2 capsules by mouth th* DICYCLOMINE 10 MG CAPSULE TAKE 2 CAPSULES 3 TIMES A DAY* MAGNESIUM OXIDE 400 MG (241.3* Take one(1) tablet daily. OMEPRAZOLE 40 MG CAPSULE,KAILEE* Take 1 capsule by mouth once * ONDANSETRON 4 MG DISINTEGRATI* Take by mouth. TAKE 1 TABLET * RIBOFLAVIN (VITAMIN B2) 100 M* Take 100 mg by mouth four janet* TOPIRAMATE XR 100 MG CAPSULE,* Take 100 mg at bedtime daily. DICLOFENAC POTASSIUM 50 MG OR* 1 packet in water at migraine* ERENUMAB-AOOE 70 MG/ML SUBCUT* Inject 70 mg subcutaneously o* IV CONTRAST (RADIOLOGY PROCED* MRI CSP Inject, intravenousl* Problem List As Of Date 06/27/2018 Noted Resolved ACUTE PHARYNGITIS [J02.9] INVALID FOR* MIGRAINE CLASSICAL [G43.109] INVALID FOR* URINARY FREQUENCY [R35.0] INVALID FOR* CERVICALGIA [M54.2] INVALID FOR* S/P endometrial ablation [Z98.890] INVALID FOR* History of meningioma [Z86.018] More... Paresthesia [R20.2] INVALID FOR* Intractable chronic migraine without aura [G43.*INVALID FOR* Medication overuse headache [G44.40] INVALID FOR*12/23/2015 Vitamin D deficiency [E55.9] INVALID FOR* Prescriptions ordered this encounter Disp Refills Start End DICLOFENAC POTASSIUM 50 MG ORAL POWD* 9 Pa* 11 06/27/2018 Si packet in water at migraine onset. May repeat every 8 hours as needed. ERENUMAB-AOOE 70 MG/ML SUBCUTANEOUS * 1 Sy* 11 06/27/2018 Route: SUBCUTANEOUS Sig: Inject 70 mg subcutaneously once every month. IV CONTRAST (RADIOLOGY PROCEDURE) 1 Ea* 0 06/27/2018 06/28/2018 Class: In Office Sig: MRI CSP Inject, intravenously, once for 1 dose. No IV access, insert saline lock prior to the beginning of sedation, infusion, injection of imaging exam. Discontinue saline lock post exam. If Pt. has a central line or IVAD, may access for administration according to line specific nursing protocol. Once exam is complete flush line and de-access according to line specific nursing protocol in the MR contrast administration guidelines link. Medications Discontinued During This Encounter SUMAtriptan-Naproxen (TREXIMET) 85-5* 27 t* 3 10/11/2017 06/27/2018 Sig: Take 1 tab at migraine onset. May repeat once in 2 hours if needed. Give max allowed per insurance. Disc: Reason for discontinue is not on file. ZEMBRACE SYMTOUCH 3 mg/0.5 mL pnij 6 Un* 11 10/11/2017 06/27/2018 Si injection at migraine onset. May repeat once in 2 hours if needed. Disc: Reason for discontinue is not on file. SUMAtriptan (IMITREX) 100 mg tablet 27 t* 3 10/11/2017 06/27/2018 Class: [employer] Sig: Take 1 tab at migraine onset. May repeat once in 2 hours if needed. Give max allowed per insurance. Disc: Reason for discontinue is not on file. Disposition: Return in about 3 months (around 09/25/2018). Follow-up and Disposition History Recorded Encounter Status:Closed by ESTRADA DANIELLE DO on 06/27/18 CNOV Observed: 06/12/2018 Status: COMPLETED Source: [place] 4:30 PM [facility] REPOSITORY Office Visit (WOOB) GUEROAMERICO Janet ([id number]) 1965 F Date Time Provider Department 06/12/18 4:30 PM HONEY BREWER ([facility]) WOOB During your visit today, we recorded the following information about you: Blood pressure Weight 124/78 78 kg Honey Brewer APRN.CNP 06/12/2018 4:52 PM Signed Americo Anb is a 53 year old Obstetric History T3 L3 SAB0 TAB0 Ectopic0 Multiple0 Live Births0 who presents with pain in both breasts x 2 weeks. feels achy like after you go jogging without a good bra. Has tried different bra. Her history includes: No prior breast problems. Denies trauma to breasts. Last mammogram 07/2017 - There are scattered fibroglandular elements in both breasts. No fever or chills. Drinks 20 oz Diet Coke daily and eats chocolate. OBJECTIVE: NECK: normal thyroid CHEST: Normal inspiratory effort BREASTS: Symmetrical to inspection., No dimpling or skin changes., Normal consistency, no palpable masses., Normal nipples without discharge., No axillary lymphadenopathy., Positive findings: fibrocystic changes bilaterally. IMPRESSION: Mastadynia both breasts Fibrocystic change both breasts ASSESSMENT/PLAN: 1. Bilateral mastodynia - ICD9: 611.71, ICD10: N64.4 - [facility] BILAT - US BREAST LTD LT - US BREAST LTD RT Education: ? Decrease or avoid intake of caffeine, including coffee, teas, sodas, and chocolate. ? Decrease or avoid nicotine. ? Wear a support or sports (not underwire) bra. ? Take btuj-tcc-zcyaabk ibuprofen (Advil/Motrin) or other NSAIDs, such as naproxen (Aleve). ? Take 3 grams (3000 mg.) of evening primrose oil (available zizx-dfj-vwmxpmv) in divided doses for 2 months. ? Take warm showers. ? Use warm compresses. Follow-up as needed. Honey Brewer APRN.ISAAK Velásquez Ma 06/12/2018 4:52 PM Signed patient declined retail zone specialist Stacy Brewer APRN.CNP 06/12/2018 4:35 PM Signed Management of Benign Breast Pain / Fibrocystic Changes ? Decrease or avoid intake of caffeine, including coffee, teas, sodas, and chocolate. ? Decrease or avoid nicotine. ? Wear a support or sports (not underwire) bra. ? Take yoxm-voz-jzpvpof ibuprofen (Advil/Motrin) or other NSAIDs, such as naproxen (Aleve). ? Take 3 grams (3000 mg.) of evening primrose oil (available stdo-clz-gexisuz) in divided doses for 2 months. ? Take warm showers. ? Use warm compresses. Referring Provider: SELF [200] Allergies As of Date: 06/12/2018 Noted Allergy Reaction MORPHINE 03/05/2018 14 - Other: See Comments Comments: Heart palpitations Date Reviewed: 06/12/2018 Reviewed by: Honey Brewer - Fully Assessed Primary Visit Diagnosis:Bilateral mastodynia [N64.4] Order(s):[facility] DIAGNOSTIC BILAT [8491203] Order #: [id number] FUTURE US BREAST LTD LT [[id number]] Order #: [id number] FUTURE US BREAST LTD RT [[id number]] Order #: [id number] FUTURE Prescriptions as of 06/12/2018 Sig: OMEPRAZOLE 40 MG CAPSULE,KAILEE* Take 1 capsule by mouth once * DICYCLOMINE 10 MG CAPSULE Take 1-2 capsules by mouth th* DICYCLOMINE 10 MG CAPSULE TAKE 2 CAPSULES 3 TIMES A DAY* ONDANSETRON 4 MG DISINTEGRATI* Take by mouth. TAKE 1 TABLET * TOPIRAMATE XR 100 MG CAPSULE,* Take 100 mg at bedtime daily. PROBIOTIC DIGESTIVE CARE ORAL Take by mouth. SUMATRIPTAN 100 MG TABLET Take 1 tab at migraine onset.* SUMATRIPTAN 85 MG-NAPROXEN 50* Take 1 tab at migraine onset.* ZEMBRACE SYMTOUCH 3 MG/0.5 ML* 1 injection at migraine onset* VITAMIN D-3 ORAL Take by mouth once daily. RIBOFLAVIN (VITAMIN B2) 100 M* Take 100 mg by mouth four janet* MAGNESIUM OXIDE 400 MG (241.3* Take one(1) tablet daily. Problem List As Of Date 06/12/2018 Noted Resolved ACUTE PHARYNGITIS [J02.9] INVALID FOR* MIGRAINE CLASSICAL [G43.109] INVALID FOR* URINARY FREQUENCY [R35.0] INVALID FOR* CERVICALGIA [M54.2] INVALID FOR* S/P endometrial ablation [Z98.890] INVALID FOR* History of meningioma [Z86.018] More... Paresthesia [R20.2] INVALID FOR* Intractable chronic migraine without aura [G43.*INVALID FOR* Medication overuse headache [G44.40] INVALID FOR*12/23/2015 Vitamin D deficiency [E55.9] INVALID FOR* Other instructions from your clinician: Management of Benign Breast Pain / Fibrocystic Changes ? Decrease or avoid intake of caffeine, including coffee, teas, sodas, and chocolate. ? Decrease or avoid nicotine. ? Wear a support or sports (not underwire) bra. ? Take copl-vln-ssfxupn ibuprofen (Advil/Motrin) or other NSAIDs, such as naproxen (Aleve). ? Take 3 grams (3000 mg.) of evening primrose oil (available bzoa-qzp-awvjmao) in divided doses for 2 months. ? Take warm showers. ? Use warm compresses. Encounter Status:Closed by HONEY BREWER on 06/12/18 PROGRESS Observed: 06/12/2018 Status: COMPLETED Source: [place] 4:15 PM [facility] REPOSITORY HNO ID: [id number] Author: Stacy Velásquez Ma Service: (none) Author Type: (none) Type: Progress Notes Filed: 06/12/2018 4:52 PM Note Text: patient declined retail zone specialist Stacy Christen Vanessa PROGRESS Observed: 06/12/2018 Status: COMPLETED Source: [place] 4:11 PM [facility] REPOSITORY HNO ID: [id number] Author: Honey Brewer Service: (none) Author Type: Nurse Practitioner Type: Progress Notes Filed: 06/12/2018 4:52 PM Note Text: Americo Jack is a 53 year old Obstetric History T3 L3 SAB0 TAB0 Ectopic0 Multiple0 Live Births0 who presents with pain in both breasts x 2 weeks. feels achy like after you go jogging without a good bra. Has tried different bra. Her history includes: No prior breast problems. Denies trauma to breasts. Last mammogram 07/2017 - There are scattered fibroglandular elements in both breasts. No fever or chills. Drinks 20 oz Diet Coke daily and eats chocolate. OBJECTIVE: NECK: normal thyroid CHEST: Normal inspiratory effort BREASTS: Symmetrical to inspection., No dimpling or skin changes., Normal consistency, no palpable masses., Normal nipples without discharge., No axillary lymphadenopathy., Positive findings: fibrocystic changes bilaterally. IMPRESSION: Mastadynia both breasts Fibrocystic change both breasts ASSESSMENT/PLAN: 1. Bilateral mastodynia - ICD9: 611.71, ICD10: N64.4 - DANIEL DIAGNOSTIC BILAT - BREAST LTD LT - US BREAST LTD RT Education: ? Decrease or avoid intake of caffeine, including coffee, teas, sodas, and chocolate. ? Decrease or avoid nicotine. ? Wear a support or sports (not underwire) bra. ? Take adkd-bkg-hmryvzx ibuprofen (Advil/Motrin) or other NSAIDs, such as naproxen (Aleve). ? Take 3 grams (3000 mg.) of evening primrose oil (available auyf-wwa-psnunmj) in divided doses for 2 months. ? Take warm showers. ? Use warm compresses. Follow-up as needed. Honey Brewer APRN.CNP PROGRESS Observed: 05/07/2018 Status: COMPLETED Source: [place] 3:56 PM [facility] REPOSITORY HNO ID: [id number] Author: Rosy Granados (Pa) Service: (none) Author Type: Physician Gis Mapping Technician Type: Progress Notes Filed: 05/10/2018 2:30 PM Note Text: FOLLOW UP VISIT - ENDOSCOPY NAME: Americo Gonzales [facility] NO.: [id number] DATE OF SERVICE: 05/06/2018 : 1965 REFERRING PHYSICIAN: Abbe Cabezas DO Americo is a patient I am following for abdominal pain and abnormal right upper quadrant ultrasound. Per my HANDP from 03/04/18: The patient is a 53 year old female referred for abdominal pain. Americo notes last Sunday she woke up at 4 am with severe epigastric pain. She states for dinner the previous night she had eaten a little sweet corn and nothing else. She noted associated nausea and sweating. Denies fevers or emesis. Denies any change in bowel habits. Her pain persisted throughout the day, she contacted her PCP and was advised to go to the emergency department. The patient was treated with IV fluids, morphine and Zofran-notes she had adverse reaction to morphine including heart palpitations and chest discomfort. Total bilirubin in emergency department was 1.0, lipase 147. Troponin negative. EKG showed no acute ischemic changes. Patient had an ultrasound of the right upper quadrant which showed a small amount of sludge in gallbladder without significant wall thickening or pericholecystic fluid. She was prescribed Zofran and Bentyl and advised to follow up with Dr. Zhang as an outpatient. 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 ? The patient denies any prior episodes of similar pain. Denies family history of gallbladder disease. She notes that eating seems to make pain worse, regardless of food type. Pain started in epigastric area, she does also note some radiation to right upper quadrant and pressure sensation in this area. She has been eating very little since her ED visit. Patient denies history of ulcers in the past but does note that she frequently has to take naproxen-containing medications for migraines. Denies significant caffeine or spicy food intake and does not use tobacco. Patient just recently had colonoscopy in January, has not had EGD in the past. ? Patient's past medical history is significant for patient foramen ovale, migraines, irritable bowel syndrome, history of meningioma. Her symptoms were felt to be more consistent with gastritis than true biliary colic at that time, and it was recommended that she have EGD, with possible cholecystectomy to follow if EGD findings unremarkable. Dr. Casarez performed upper endoscopy on 04/24/18. The patient was found to have a small hiatal hernia, erythematous mucosa in antrum, normal appearing duodenum, no concerning findings. Pathology demonstrated: FINAL DIAGNOSIS 1. Duodenum, 2nd portion, biopsy (A) - Duodenal mucosa with no significant diagnostic alterations. 2. Stomach, antrum, biopsy (B) - Mild chronic inactive gastritis. - No morphologic evidence of Helicobacter pylori. 3. Esophagogastric junction, biopsy (C) - Squamous esophageal mucosa with basal zone hyperplasia and rare intraepithelial eosinophils (up to two eosinophils per high power field) consistent with reflux disease. AEB/rw 04/26/2018 The patient notes no new complaints since the procedure. She does note that between last office visit and her procedure she had some chest pain which was new and had changes noted on EKG done in PCP office. She was then evaluated in the emergency department, records not currently available for review. Patient states she had a cardiac workup which was negative and was told her symptoms were likely related to acid reflux. She notes she has been trying to be more careful of what she eats and has already noted an improvement in symptoms. Has also been trying omeprazole OTC, is interested in a prescription for this. VITALS: There were no vitals taken for this visit. General: patient is alert, cooperative, in no acute distress On examination, the abdomen is benign. Assessment IMPRESSION: s/p EGD showing mild chronic gastritis and acid reflux, small hiatal hernia. Small amount of biliary sludge on ultrasound with gallbladder wall thickening or pericholecystic fluid previously. Clinically improved with conservative measures PLAN: Patient notes she would like to hold off on any surgical intervention for her gallbladder at this time since her symptoms are significantly improving with dietary and lifestyle modifications and PPI -Continue omeprazole for 3 months, in addition to dietary and lifestyle modifications as discussed during visit -Call immediately if any recurrent abdominal pain or worsening symptoms. If symptoms persist or worsen despite above measures, consider laparoscopic cholecystectomy. Red flag signs/symptoms discussed Patient verbalized understanding of all above and agreeable to this plan Diagnoses: (K29.50) Mild chronic gastritis (primary encounter diagnosis) (K82.8) Gallbladder sludge (K21.0) GERD with esophagitis (K44.9) Hiatal hernia I spent 20 minutes in the visit, with more than 50% of the total ohdv-vi-ngxy time of the visit in counseling / coordination of care. Rosy Granados PA-C CNOV Observed: 05/06/2018 Status: COMPLETED Source: [place] 8:00 AM [facility] REPOSITORY Office Visit (GENSWS) AMERICO JACK ([id number]) 1965 F Date Time Provider Department 05/06/18 8:00 AM ROSY GRANADOS (PA) During your visit today, we recorded the following information about you: Rosy Granados PA-C 05/06/2018 8:26 AM Signed -Trial of omeprazole for 3 months -Call immediately if any recurrent abdominal pain or worsening symptoms The following instructions are important for you related to your office visit today with the [facility] General Surgeons. INSTRUCTIONS FOR PEPTIC ULCER DISEASE - ESOPHAGITIS I discussed with you the findings of your upper endoscopy. Your upper endoscopy demonstrated esophagitis Esophagitis may be a form of peptic irritation, with acid moving from the stomach to the esophagus (gastroesophageal reflux) Factors that increase acid production include smoking and stress. If you smoke, stopping smoking will often cure these issues without needing other medications. Over the counter medications including antiacids and acid reducing medications including H2 blockers (Zantac and the like) and proton pump inhibitors (prilosec, prevacid and the like) neutralize or prevent acid production. Prescription strength proton pump inhibitors (PPIs) may be necessary if your symptoms persist. Carafate may be added to PPI treatment in refractory cases. Avoiding smoking, alcohol and antiinflammatory medications are important in the successful treatment of reflux esophagitis and peptic diseases. Other factors that contribute to GERD and esophagitis are being overweight, eating large meals before laying down and certain foods. Weight loss will help improve many GERD complaints. Remaining upright after eating large meals and having a small supper will also help symptoms. Avoiding food that contribute to reflux - chocolate, caffeine, cheddar cheese may also help. Follow up upper endoscopy may be recommended to assure healing of the esophagus. New or worsening symptoms such are epigastric pain, burning, difficulty swallowing or food sticking should be relayed to your physician. Feeling full early after eating, or black, tarry, foul smelling stools are also worrisome. If you have any difficulties or concerns, you should contact our office immediately. If you note any additional difficulties, questions, or concerns, you should contact our office immediately @ [phone] and ask to be transferred to the General Surgery department. Rosy Granados PA-C 05/10/2018 2:30 PM Signed FOLLOW UP VISIT - ENDOSCOPY NAME: Americo Gonzales [facility] NO.: [id number] DATE OF SERVICE: 05/06/2018 : 1965 REFERRING PHYSICIAN: Abbe Cabezas DO Americo is a patient I am following for abdominal pain and abnormal right upper quadrant ultrasound. Per my HANDP from 03/04/18: The patient is a 53 year old female referred for abdominal pain. Americo notes last Sunday she woke up at 4 am with severe epigastric pain. She states for dinner the previous night she had eaten a little sweet corn and nothing else. She noted associated nausea and sweating. Denies fevers or emesis. Denies any change in bowel habits. Her pain persisted throughout the day, she contacted her PCP and was advised to go to the emergency department. The patient was treated with IV fluids, morphine and Zofran-notes she had adverse reaction to morphine including heart palpitations and chest discomfort. Total bilirubin in emergency department was 1.0, lipase 147. Troponin negative. EKG showed no acute ischemic changes. Patient had an ultrasound of the right upper quadrant which showed a small amount of sludge in gallbladder without significant wall thickening or pericholecystic fluid. She was prescribed Zofran and Bentyl and advised to follow up with Dr. Zhang as an outpatient. 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 ? The patient denies any prior episodes of similar pain. Denies family history of gallbladder disease. She notes that eating seems to make pain worse, regardless of food type. Pain started in epigastric area, she does also note some radiation to right upper quadrant and pressure sensation in this area. She has been eating very little since her ED visit. Patient denies history of ulcers in the past but does note that she frequently has to take naproxen-containing medications for migraines. Denies significant caffeine or spicy food intake and does not use tobacco. Patient just recently had colonoscopy in January, has not had EGD in the past. ? Patient's past medical history is significant for patient foramen ovale, migraines, irritable bowel syndrome, history of meningioma. Her symptoms were felt to be more consistent with gastritis than true biliary colic at that time, and it was recommended that she have EGD, with possible cholecystectomy to follow if EGD findings unremarkable. Dr. Casarez performed upper endoscopy on 04/24/18. The patient was found to have a small hiatal hernia, erythematous mucosa in antrum, normal appearing duodenum, no concerning findings. Pathology demonstrated: FINAL DIAGNOSIS 1. Duodenum, 2nd portion, biopsy (A) - Duodenal mucosa with no significant diagnostic alterations. 2. Stomach, antrum, biopsy (B) - Mild chronic inactive gastritis. - No morphologic evidence of Helicobacter pylori. 3. Esophagogastric junction, biopsy (C) - Squamous esophageal mucosa with basal zone hyperplasia and rare intraepithelial eosinophils (up to two eosinophils per high power field) consistent with reflux disease. AEB/rw 04/26/2018 The patient notes no new complaints since the procedure. She does note that between last office visit and her procedure she had some chest pain which was new and had changes noted on EKG done in PCP office. She was then evaluated in the emergency department, records not currently available for review. Patient states she had a cardiac workup which was negative and was told her symptoms were likely related to acid reflux. She notes she has been trying to be more careful of what she eats and has already noted an improvement in symptoms. Has also been trying omeprazole OTC, is interested in a prescription for this. VITALS: There were no vitals taken for this visit. General: patient is alert, cooperative, in no acute distress On examination, the abdomen is benign. Assessment IMPRESSION: s/p EGD showing mild chronic gastritis and acid reflux, small hiatal hernia. Small amount of biliary sludge on ultrasound with gallbladder wall thickening or pericholecystic fluid previously. Clinically improved with conservative measures PLAN: Patient notes she would like to hold off on any surgical intervention for her gallbladder at this time since her symptoms are significantly improving with dietary and lifestyle modifications and PPI -Continue omeprazole for 3 months, in addition to dietary and lifestyle modifications as discussed during visit -Call immediately if any recurrent abdominal pain or worsening symptoms. If symptoms persist or worsen despite above measures, consider laparoscopic cholecystectomy. Red flag signs/symptoms discussed Patient verbalized understanding of all above and agreeable to this plan Diagnoses: (K29.50) Mild chronic gastritis (primary encounter diagnosis) (K82.8) Gallbladder sludge (K21.0) GERD with esophagitis (K44.9) Hiatal hernia I spent 20 minutes in the visit, with more than 50% of the total liqc-ia-umfj time of the visit in counseling / coordination of care. Rosy Granados PA-C Referring Provider: ABBE CABEZAS [[id number]] Allergies As of Date: 05/06/2018 Noted Allergy Reaction MORPHINE 03/05/2018 14 - Other: See Comments Comments: Heart palpitations Date Reviewed: 05/06/2018 Reviewed by: Shila Basurto LPN - Fully Assessed Reason for Visit: Post Op [174] Primary Visit Diagnosis:Mild chronic gastritis [K29.50] Other Visit Diagnoses:Gallbladder sludge [K82.8] GERD with esophagitis [K21.0] Hiatal hernia [K44.9] Order(s):Omeprazole (PRILOSEC) 40 mg capsuleTake 1 capsule by mouth once daily.Disp: 30 capsuleRfl: 2 Prescriptions as of 05/06/2018 Sig: OMEPRAZOLE 40 MG CAPSULE,KAILEE* Take 1 capsule by mouth once * DICYCLOMINE 10 MG CAPSULE Take 1-2 capsules by mouth th* DICYCLOMINE 10 MG CAPSULE TAKE 2 CAPSULES 3 TIMES A DAY* ONDANSETRON 4 MG DISINTEGRATI* Take by mouth. TAKE 1 TABLET * TOPIRAMATE XR 100 MG CAPSULE,* Take 100 mg at bedtime daily. PROBIOTIC DIGESTIVE CARE ORAL Take by mouth. SUMATRIPTAN 100 MG TABLET Take 1 tab at migraine onset.* SUMATRIPTAN 85 MG-NAPROXEN 50* Take 1 tab at migraine onset.* ZEMBRACE SYMTOUCH 3 MG/0.5 ML* 1 injection at migraine onset* VITAMIN D-3 ORAL Take by mouth once daily. RIBOFLAVIN (VITAMIN B2) 100 M* Take 100 mg by mouth four janet* MAGNESIUM OXIDE 400 MG (241.3* Take one(1) tablet daily. Problem List As Of Date 05/06/2018 Noted Resolved ACUTE PHARYNGITIS [J02.9] INVALID FOR* MIGRAINE CLASSICAL [G43.109] INVALID FOR* URINARY FREQUENCY [R35.0] INVALID FOR* CERVICALGIA [M54.2] INVALID FOR* S/P endometrial ablation [Z98.890] INVALID FOR* History of meningioma [Z86.018] More... Paresthesia [R20.2] INVALID FOR* Intractable chronic migraine without aura [G43.*INVALID FOR* Medication overuse headache [G44.40] INVALID FOR*12/23/2015 Vitamin D deficiency [E55.9] INVALID FOR* Other instructions from your clinician: -Trial of omeprazole for 3 months -Call immediately if any recurrent abdominal pain or worsening symptoms The following instructions are important for you related to your office visit today with the [facility] General Surgeons. INSTRUCTIONS FOR PEPTIC ULCER DISEASE - ESOPHAGITIS I discussed with you the findings of your upper endoscopy. Your upper endoscopy demonstrated esophagitis Esophagitis may be a form of peptic irritation, with acid moving from the stomach to the esophagus (gastroesophageal reflux) Factors that increase acid production include smoking and stress. If you smoke, stopping smoking will often cure these issues without needing other medications. Over the counter medications including antiacids and acid reducing medications including H2 blockers (Zantac and the like) and proton pump inhibitors (prilosec, prevacid and the like) neutralize or prevent acid production. Prescription strength proton pump inhibitors (PPIs) may be necessary if your symptoms persist. Carafate may be added to PPI treatment in refractory cases. Avoiding smoking, alcohol and antiinflammatory medications are important in the successful treatment of reflux esophagitis and peptic diseases. Other factors that contribute to GERD and esophagitis are being overweight, eating large meals before laying down and certain foods. Weight loss will help improve many GERD complaints. Remaining upright after eating large meals and having a small supper will also help symptoms. Avoiding food that contribute to reflux - chocolate, caffeine, cheddar cheese may also help. Follow up upper endoscopy may be recommended to assure healing of the esophagus. New or worsening symptoms such are epigastric pain, burning, difficulty swallowing or food sticking should be relayed to your physician. Feeling full early after eating, or black, tarry, foul smelling stools are also worrisome. If you have any difficulties or concerns, you should contact our office immediately. If you note any additional difficulties, questions, or concerns, you should contact our office immediately @ [phone] and ask to be transferred to the General Surgery department. Prescriptions ordered this encounter Disp Refills Start End OMEPRAZOLE 40 MG CAPSULE,DELAYED REL* 30 c* 2 05/06/2018 Route: ORAL Sig: Take 1 capsule by mouth once daily. Follow-up and Disposition History Recorded Encounter Status:Closed by ROSY GRANADOS PA-C on 05/10/18 NURSING PROG Observed: 04/24/2018 Status: COMPLETED Source: [place] 9:11 AM [facility] REPOSITORY HNO ID: [id number] Author: Theresa Crawford (Rn) GUSTAVO Brennan Service: Nursing Author Type: Registered Nurse Type: Nursing Progress Note Filed: 04/24/2018 9:11 AM Note Text: Patient did not experience a fall prior to discharge. Patient did not experience a burn prior to discharge. Theresa Brennan RN NURSING PROG Observed: 04/24/2018 Status: COMPLETED Source: [place] 8:54 AM [facility] REPOSITORY HNO ID: [id number] Author: Theresa StephensRn) GUSTAVO Brennan Service: Nursing Author Type: Registered Nurse Type: Nursing Progress Note Filed: 04/24/2018 8:55 AM Note Text: Patient awake, states Im feeling much more awake. Tolerating apple juice and crackers. at bedside. Theresa Brennan RN NURSING PROG Observed: 04/24/2018 Status: COMPLETED Source: [place] 8:23 AM [facility] REPOSITORY HNO ID: [id number] Author: Aimee StephensRn) GUSTAVO Hammond Service: (none) Author Type: Registered Nurse Type: Nursing Progress Note Filed: 04/24/2018 8:24 AM Note Text: Pt sitting up in bed tolerating snack and drink. Denies pain or nausea. at bedside. Abd soft and nondistended. Dr. Casarez was by and spoke with . No complaints. Pt very sleepy. Aimee Hammond RN PT ED Observed: 04/24/2018 Status: COMPLETED Source: [place] 8:07 AM [facility] REPOSITORY HNO ID: [id number] Author: Aimee StephensRnYeny Hammond RN Service: (none) Author Type: Registered Nurse Type: Patient Education Filed: 04/24/2018 8:07 AM Note Text: POST OP LEARNING RESPONSE INSTRUCTION PROVIDED TO: Patient and Spouse METHOD OF INSTRUCTION: Individual instruction Written instruction - handouts Verbal instruction PATIENT / FAMILY RESPONSE: Verbalizes understanding of: MEDICAL REGIMEN-Importance of following prescribed medical regimen POST-PROCEDURE INSTRUCTIONS-Correct actions to take to reduce post procedure complications WORSENING CONDITION-Signs and symptoms of a worsening condition that warrant a call to the physician FOLLOW-UP PLAN: Patient instructed to call with any further issues Follow up phone call. Contact information given. SUPPLEMENTAL MATERIAL: Procedure discharge instructions REFERRAL (RECOMMENDATION): None Electronically Signed By: Aimee Hammond RN In Department: AMBULATORY SURGERY NURSING PROG Observed: 04/24/2018 Status: COMPLETED Source: [place] 7:56 AM [facility] REPOSITORY HNO ID: [id number] Author: Cindy StephensRnYeny Vogt RN Service: Nursing Author Type: Registered Nurse Type: Nursing Progress Note Filed: 04/24/2018 7:56 AM Note Text: Patient did not experience a fall within the Intraoperative area. Patient did not experience a burn within the Intraoperative area. Cindy Vogt RN NURSING PROG Observed: 04/24/2018 Status: COMPLETED Source: [place] 7:30 AM [facility] REPOSITORY HNO ID: [id number] Author: Theresa Brennan RN Service: Nursing Author Type: Registered Nurse Type: Nursing Progress Note Filed: 04/24/2018 7:31 AM Note Text: [facility] PRE-OP NURSING HAND OFF NOTE SBAR Hand off given to Cindy Vogt RN. Hand off was communicated verbally and at the patient's bedside and all questions were answered. FALLS/COY Patient did not experience a fall within the Preoperative area. Patient did not experience a burn within the Preoperative area. Theresa Brennan RN PT ED Observed: 04/24/2018 Status: COMPLETED Source: [place] 7:19 AM [facility] REPOSITORY HNO ID: [id number] Author: Theresa StephensRn) Anu, GUSTAVO Service: Nursing Author Type: Registered Nurse Type: Patient Education Filed: 04/24/2018 7:20 AM Note Text: PRE OP LEARNING ASSESSMENT PROCEDURE/SURGERY: GI PROCEDURES: EGD READINESS TO LEARN COGNITIVE ABILITY: Alert and oriented MOTIVATION TO LEARN: Eager FAMILY SUPPORT: High - Very involved in pt care PATIENT LEARNS BEST BY: Verbal Instruction FACTORS AFFECTING LEARNING: None PHYSICAL LIMITATIONS AFFECTING LEARNING: None Electronically Signed By: Theresa Brennan RN In Department: AMBULATORY SURGERY SURGICAL PATHOLOGY Observed: 04/24/2018 Status: F Source: [place] 12:00 AM [facility] REPOSITORY Specimen originated from [facility] Specimen #: [id number] Submitting Physician: DINA CASAREZ MD FINAL DIAGNOSIS 1. Duodenum, 2nd portion, biopsy (A) - Duodenal mucosa with no significant diagnostic alterations. 2. Stomach, antrum, biopsy (B) - Mild chronic inactive gastritis. - No morphologic evidence of Helicobacter pylori. 3. Esophagogastric junction, biopsy (C) - Squamous esophageal mucosa with basal zone hyperplasia and rare intraepithelial eosinophils (up to two eosinophils per high power field) consistent with reflux disease. AEB/rw 04/26/2018 Anastasiia Sher M.D. (Electronic Signature) SPECIMEN SUBMITTED A: SECOND PORTION DUODENUM, BIOPSY B: ANTRUM, BIOPSY H/H C: ESOPHAGOGASTRIC JUNCTION, BIOPSY CLINICAL DATA R10.9 GROSS DESCRIPTION A. Received in formalin are three pieces of king, soft tissue aggregating to 0.7 x 0.2 x 0.1 cm. Totally submitted in one cassette. B. Received in formalin are two pieces of king, soft tissue aggregating to 0.7 x 0.3 x 0.1 cm. Totally submitted in one cassette. C. Received in formalin are two pieces of king-white, soft tissue aggregating to 0.6 x 0.3 x 0.1 cm. Totally submitted in one cassette. Gross examination performed at [facility], [address] [place] [address] FFS 04/26/2018 3:02:27 AM Date of Report: 04/29/2018 Date of Procedure: 04/24/2018 Date of Receipt: 04/25/2018 Submitted by: DINA CASAREZ MD [facility] Diagnostic interpretation performed at [facility], [address] [place] [address]. HISTORY PHYSICAL Observed: 04/23/2018 Status: COMPLETED Source: [place] 6:04 PM [facility] [place] REPOSITORY HNO ID: [id number] Author: Dina Casarez Service: (none) Author Type: Physician Type: HANDP Filed: 04/23/2018 6:05 PM Note Text: HISTORY AND PHYSICAL ? Americo Janet Guero 1965 ? REFERRING PHYSICIAN: [facility], [place] ? CHIEF COMPLAINT: abnormal us gallbladder ? HPI: The patient is a 53 year old female referred for abdominal pain. Americo notes last Sunday she woke up at 4 am with severe epigastric pain. She states for dinner the previous night she had eaten a little sweet corn and nothing else. She noted associated nausea and sweating. Denies fevers or emesis. Denies any change in bowel habits. Her pain persisted throughout the day, she contacted her PCP and was advised to go to the emergency department. The patient was treated with IV fluids, morphine and Zofran-notes she had adverse reaction to morphine including heart palpitations and chest discomfort. Total bilirubin in emergency department was 1.0, lipase 147. Troponin negative. EKG showed no acute ischemic changes. Patient had an ultrasound of the right upper quadrant which showed a small amount of sludge in gallbladder without significant wall thickening or pericholecystic fluid. She was prescribed Zofran and Bentyl and advised to follow up with Dr. Zhang as an outpatient. 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 ? The patient denies any prior episodes of similar pain. Denies family history of gallbladder disease. She notes that eating seems to make pain worse, regardless of food type. Pain started in epigastric area, she does also note some radiation to right upper quadrant and pressure sensation in this area. She has been eating very little since her ED visit. Patient denies history of ulcers in the past but does note that she frequently has to take naproxen-containing medications for migraines. Denies significant caffeine or spicy food intake and does not use tobacco. Patient just recently had colonoscopy in January, has not had EGD in the past. ? Patient's past medical history is significant for patient foramen ovale, migraines, irritable bowel syndrome, history of meningioma. ? ? PAST?MEDICAL?HISTORY PAST MEDICAL HISTORY Diagnosis Date - Anxiety state, unspecified ? - Cervicalgia ? - Constipation ? - History of meningioma 1995 ? Cervical spine - Irritable bowel syndrome ? - Migraine without aura, without mention of intractable migraine without mention of status migrainosus ? - PFO (patent foramen ovale) ? - Snoring ? - Unspecified viral meningitis 2002 ? ? PAST?SURGICAL?HISTORY PAST SURGICAL HISTORY Procedure Laterality Date - COLONOSCOP W/ OR W/O [facility] SPEC ? 01/24/2018 ? Colonoscopy - LIGATE FALLOPIAN TUBE ? 02/18 ? Tubal ligation and Novasure ablation - PAST SURGICAL HISTORY OF ? 1995 ? tumor off spinal cord- meningioma C7- [facility] Dr. Braun - PAST SURGICAL HISTORY OF ? ? ? left hand surgery- fracture 5th digit ? ?? CURRENT?MEDICATIONS ? Current Outpatient Prescriptions: dicyclomine (BENTYL) 10 mg capsule Take 1-2 capsules by mouth three times daily with meals. dicyclomine (BENTYL) 10 mg capsule TAKE 2 CAPSULES 3 TIMES A DAY BEFORE MEALS ondansetron orally disintegrating (ZOFRAN ODT) 4 mg disintegrating tablet Take by mouth. TAKE 1 TABLET BY MOUTH EVERY 8 HOURS NEEDED FOR NAUSEA topiramate (TROKENDI XR) 100 mg cp24 Take 100 mg at bedtime daily. B infantis/B ani/B marilu/B bifid (PROBIOTIC DIGESTIVE CARE ORAL) Take by mouth. SUMAtriptan (IMITREX) 100 mg tablet Take 1 tab at migraine onset. May repeat once in 2 hours if needed. Give max allowed per insurance. SUMAtriptan-Naproxen (TREXIMET) 85-500 mg per tablet Take 1 tab at migraine onset. May repeat once in 2 hours if needed. Give max allowed per insurance. ZEMBRACE SYMTOUCH 3 mg/0.5 mL pnij 1 injection at migraine onset. May repeat once in 2 hours if needed. diclofenac sodium (VOLTAREN) 1 % topical gel Apply 2 g to affected area four times daily. CALCIUM CARBONATE/VITAMIN D3 (VITAMIN D-3 ORAL) Take by mouth once daily. riboflavin, vitamin B2, (VITAMIN B-2) 100 mg tab Take 100 mg by mouth four times daily. magnesium oxide 400 mg ORAL tablet Take one(1) tablet daily. ? No current facility-administered medications for this visit. ? ALLERGIES: Patient has no known allergies. ? PERSONAL HISTORY: SOCIAL?HISTORY Social History Marital status: Spouse name: Shy Years of education: Number of children: 3 ? 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 Social History Main Topics Smoking status: Never Smoker ? Smokeless tobacco: Never Used Alcohol use: Yes Comment: Rarely Drug use: No Comment: caffeine: none Sexual activity: Yes Partners with: Male control/protection: Tubal Ligation Comment: Ablation ? ? FAMILY HISTORY: FAMILY?HISTORY FAMILY HISTORY Problem Relation Age of Onset - Hypertension Mother ? - Headache Mother ? - Heart Father ? ? CHF- age 81 - Diabetes Father ? - Prostate Cancer Father ? - Multiple Sclerosis Sister ? - other (PFO [Other]) Son ? ? with subsequent stroke ? REVIEW OF SYSTEMS: General: The patient denies fatigue, denies weight loss, denies weight gain, denies feeling hot, and denies feelings of cold. Eyes: The patient denies glaucoma, denies eye injury/surgery, does not wear glasses or contacts. Ear/Nose/Throat: The patient denies allergies, denies hayfever, denies ear infections, and denies bloody noses. Cardiovascular: The patient denies chest pain, denies heart disease, denies high blood pressure,denies cardiac stent, denies prior heart attack, denies irregular heart beat, denies high cholesterol, denies poor circulation, denies heart failure, NOTRES cardiac issues (PFO), denies claudication, denies cold feet, denies peripheral arterial stent. Respiratory: The patient denies tuberculosis, denies pneumonia, denies frequent cough, denies pulmonary embolism, denies shortness of breath, and denies coughing up blood. Gastrointestinal: The patient denies difficulty swallowing, denies acid reflux, denies ulcers, denies vomiting, denies jaundice/hepatitis, denies gallbladder problems, denies black or tarry stools, denies hemorrhoids, denies bleeding from rectum, NOTES diverticulitis, denies constipation, denies diarrhea, denies loss of stool control, and denies hernias. Kidney/Bladder: The patient denies kidney stones, denies urine infections, and denies bloody urine. Skin: The patient denies a history of skin cancer, denies bleeding/changing moles, and denies a history of skin rash. Neurologic: The patient denies a history of epilepsy/convulsions, NOTES headaches, denies head/spinal injuries, and denies stroke/TIA. Psychiatric: The patient denies psychiatric medications, denies depression, and denies voices, denies substance abuse. Endocrine: The patient denies thyroid disorders, denies diabetes, and denies hormonal problems. Hematologic: The patient denies a history of bruising, denies bleeding, and denies anemia, denies blood clots. Infections: The patient denies a history of measles and mumps, denies rheumatic fever, and denies sexually transmitted diseases. Musculoskeletal: The patient denies back pain/injury, denies back problems, denies sciatica, denies knee/foot trouble, denies arthritis, or denies gout. ? ? PHYSICAL EXAMINATION: ?General: The patient is 53 year old female, well nourished, well hydrated in no acute distress. The patient is oriented to time, place, and person. ?VITALS: Weight 74.8 kg (165 lb). Body mass index is 23.68 kg/m?. ?HEENT: Normal cephalic, ataumatic, pupils are equally round, sclera are anicteric, mucous membranes are moist, oropharynx is clear. Neck has no masses, asymmetry or lymphadenopathy. ?Respiratory: Clear to auscultation and percussion. Normal respiratory excursion and pattern. ?Cardiac: Examination is regular rate and rhythm. ?Abdominal exam: Soft, +mild TTP epigastric area and RUQ without rebound or guarding, negative Minor's sign, with no palpable masses. No hepatosplenomegaly. No palpable hernias. ?Rectal exam: exam deferred ?Extremities: no clubbing, cyanosis or edema. No adenopathy. ? IMPRESSION: epigastric and right upper quadrant discomfort ? PLAN: I have recommended upper endoscopy to rule out gastritis and/or peptic ulcer disease as a cause of patient's symptoms. Consent: The proposed procedure, risks, benefits, and alternatives were discussed with the patient in detail. All the patient's questions were answered, and the patient voiced understanding. The patient desires to proceed with endoscopy. ? Diagnoses: (R10.13) Epigastric abdominal pain (primary encounter diagnosis) (R10.11) Right upper quadrant abdominal pain ? Return to Clinic: The patient is instructed to follow-up with me 1 week post operatively. ? 12 LEAD ELECTROCARDIOGRAM Observed: 04/12/2018 Status: F Source: [place]MA 1:55 PM [facility] REPOSITORY [facility] Cardiovascular Services [address] [place] [id number] 12 Lead EKG 04/10/18 1544 MR#: [id number] Acct: [id number] Name: AMERICO JACK Rep #: [id number] : 1965 53 From: Steven Hernandez MD Attending Dr: Status: DEP ER Ordering Dr: Jacques Angulo MD Date: 04/10/18 Location: ED Sex: F C Admitted: Test Reason : CP Blood Pressure : / mmHG Vent. Rate : 066 BPM Atrial Rate : 066 BPM P-R Int : 168 ms QRS Dur : 080 ms QT Int : 404 ms P-R-T Axes : 061 057 061 degrees QTc Int : 423 ms Normal sinus rhythm Normal ECG Confirmed by JAY EVANS, STEVEN ([id number]), design editor BEBETO BANKS ([id number]) on 04/12/2018 1:55:10 PM Referred By: ESTRADA DANIELLE Confirmed By:STEVEN HERNANDEZ MD 04/12/18 1355 Date Steven Hernandez MD CC: Abbe Malave DO; Jacques Angulo MD Signed EMERGENCY DEPARTMENT Observed: 04/10/2018 Status: F Source: ERMA SUMMARY 5:28 PM [facility] REPOSITORY [facility] Medical Records Department [address] [place] [address] Emergency Department Summary 04/10/18 1710 MR#: [id number] Acct: [id number] Name: AMERICO JACK Rep #: [id number] : 1965 53 From: Jacques Angulo MD PCP: Abbe Malave, DO Status: REG ER - ER Visit Summary Date of Service: 04/10/18 Chief Complaint: Abnormal EKG and chest pressure History of Present Illness: The patient is a 53 F who reports chest pressure that has awakened her from sleep numerous times this past week. She presents today with chest pressure that has been present for the past 8 hours. There is no radiation or associated symptoms. She did complain of sour taste in the back of her throat when she had the chest heaviness that awoke her from sleep. She is scheduled for an EGD by Dr. Casarez. She denies hematemesis, melena hematochezia. She denies food intolerance. She denies exacerbation of her symptoms with exertion, change in position or food. She has no associated symptoms. She denies fever, chills night sweats. Denies weight gain or weight loss. She denies ocular, visual or auditory symptoms. She denies any respiratory symptoms i.e. dyspnea, dyspnea on exertion, orthopnea or PND. She denies dysuria, frequency, urgency or hematuria. She does report left lateral superior pectoralis discomfort that she has had for months. There are no alleviating, exacerbating precipitant factors with regard to that discomfort either. She denies any increased chest pain with movement of arms or breathing. She denies leg pain, swelling discoloration. Physical Examination: Vital signs noted and are marked for an elevated blood pressure 157/85. Head is atraumatic normocephalic. Pupils are equal round reactive. Extraocular muscles are intact. TMs are pearly white with landmarks noted. Nares patent with no drainage. Posterior pharynx without erythema or exudate. Uvula is midline. There is no dysphonia or dysphasia. Trachea is midline. There is no stridor with auscultation of the neck. Heart is regular without murmur, gallop or rub. S1 and S2 are normal. Lungs are clear to auscultation with good movement of air bilaterally. There is no reproducible chest pain. Abdomen is marked for epigastric pain. There is no tenderness right upper quadrant and negative Minor sign. There is no CVA tenderness. There is no dominant bruit or pulsatile mass. There is no asymmetry, swelling, discoloration, leg vein distention, palpable cords or tenderness along the distribution of the deep venous system. Neuro exam is nonfocal. Test Results: With 8 hours of pain and several episodes of hours of pain for the past week a troponin was obtained. She also was given a GI cocktail. Her chest pressure resolved with GI cocktail and troponin is less than 0.015. EKG is normal with a ventricular rate of 66 and a normal NH interval, QRS duration, QT intervals and axis. Emergency Department Course and Treatment: EKG was obtained since the patient was told that her EKG was abnormal. And in light of her history she was treated with GI cocktail and a troponin was obtained since she is a middle-aged woman and may have an atypical presentation. Treatment Plan: Discharge to home and keep appointment with Dr. Casarez for EGD Disposition: Discharged to home Impression: Noncardiac chest pain GERD This note was generated with BeMyGuest dictation software. It may contain incorrect words, spelling, and punctuation that were not noted in review of the chart prior to signing ED Disposition - Plan for ED Patient: Disposition: Home or Assisted Living Chief Complaint: Chest Pain Instructions: ED Chest Pain NonCardiac, ED GERD, Lifestyle Changes for Controlling GERD Referrals: Abbe Cabezas, DO [Primary Care Provider] - 1 Week What to do if you have Problems For any increased pain, shortness of breath, bleeding, nausea or vomiting, chest pain, or any unexpected problems, contact your Primary Care Provider. Call [facility] ([phone]) or report to the closest Emergency Room. Call 911 if necessary. 04/10/18 1728 <Electronically signed by Jacques Angulo MD> Date Jacques Angulo MD Cosigner Signature (If Indicated): Date CC: Abbe Malave DO; Dina Casarez MD TROPONIN-I Collected: 04/10/2018 Status: F Source: [place] 4:05 PM [facility] REPOSITORY TYPE CODE TESTS RESULT OUT OF RANGE REFERENCE UNITS LAB [id number] <0.045 ng/mL Normal < 0.015 TROPONIN-I Result Comment: TROPONIN-I EXPECTED VALUES <0.045 Negative 0.045 - 0.590 Consistent with Cardiac Damage > OR = 0.600 Critical Value Not every elevated troponin is indicative of ID. These values should be used with clinical judgement in examining the patient's clinical picture for diagnosis. To establish a diagnosis of ID versus myocardial injury, there must be a demonstrated rise and/or fall in the troponin values, in addition to ischemic symptoms, EKG changes, new regional wall motion abnormality, and/or angiographical evidence. PLEASE NOTE: REFERENCE RANGES EDITED 17 Performed By: #### L501.4010 #### [facility] Laboratory [facility] [place], [address] EKG1 Observed: 04/10/2018 Status: F Source: [place] 3:13 PM [facility] [place] REPOSITORY NAME : AMERICO JACK PID : [id number] : 1965 Gender : Female Race : ORD : Procedure Date : Apr 10 2018 15:13:34 Edit Date : Apr 12 2018 08:03:35 Diagnosis:SINUS BRADYCARDIA WITH OCCASIONAL PREMATURE VENTRICULAR COMPLEXES RIGHT AXIS DEVIATION ABNORMAL ECG Confirmed by CHATO NIETO D.O. ([id number]) on 04/12/2018 8:03:28 AM Ventricular Rate : 58 BPM Atrial Rate : 58 BPM P-R Interval : 164 ms QRS Duration : 80 ms Q-T Interval : 424 ms QTC Calculation(Bezet) : 416 ms R Medina : 133 degrees T Medina : 129 degrees Test Reason : Location : 185 : [facility] Overread By : CHATO NIETO D.O. Edited By : CHATO NIETO D.O. Referred By : WADE PARMAR Acquired by : CRISTIN LANCASTER Observed: 04/10/2018 Status: COMPLETED Source: [place] 3:02 PM [facility] REPOSITORY HNO ID: [id number] Author: Rosy Parmar Service: (none) Author Type: Nurse Practitioner Type: Progress Notes Filed: 04/10/2018 4:32 PM Note Text: HPI/CC: Americo Jack is a 53 year old female who presents for chest discomfort. Wakes up at night with pressure left sided chest pain. Intermittent x 1 week. Pain has been constant for approximately a half an hour. Denies nausea, vomiting, diaphoresis, SOB, palpitations, GERD symptoms, abdominal pain, belching, Denies new or unusual stress or previous anxiety. ROS as above, otherwise non-contributory. Reviewed PMHx, PSHx, social Hx, medications and allergies. PHYSICAL EXAMINATION: BP 101/68 (BP Site: Right Arm, BP Position: Sitting, BP Cuff Size: Regular Adult) Pulse 74 Resp 18 Wt 75.8 kg (167 lb) BMI 23.96 kg/m? General appearance: Well appearing, alert, in no acute distress, well-hydrated, well nourished. Skin: Skin color, texture, turgor normal, no suspicious rashes or lesions Lungs: Lungs clear to auscultation. No wheezing, rhonchi, rales Heart: RRR without murmur, gallop, or rubs. No ectopy. ECG shows SB with occassional PVC, septal infarct age undetermined. Compared to most recent ECG with changes ASSESSMENT/PLAN: 1. Left chest pressure - ICD9: 786.59, ICD10: R07.89 Chest pain of unclear etiology - Electrocardiogram: as above - discussed case with PCP - Referred to ED by squad- patient declined- agreeable to [facility] ER. - ECG COMPLETE W INTERPRETATION - called report to [facility] ER FAVIO SmithOV Observed: 04/10/2018 Status: COMPLETED Source: [place] 2:40 PM [facility] REPOSITORY [facility] AMERICO JACK ([id number]) 1965 F Date Time Provider Department 04/10/18 2:40 PM ROSY PARMAR (ISAAK) OLIVIER During your visit today, we recorded the following information about you: Pulse Respiration Blood pressure Weight 74/minute 18/minute 101/68 75.8 kg Rosy Parmar APRN.CNP 04/10/2018 4:32 PM Signed HPI/CC: Americo Jack is a 53 year old female who presents for chest discomfort. Wakes up at night with pressure left sided chest pain. Intermittent x 1 week. Pain has been constant for approximately a half an hour. Denies nausea, vomiting, diaphoresis, SOB, palpitations, GERD symptoms, abdominal pain, belching, Denies new or unusual stress or previous anxiety. ROS as above, otherwise non-contributory. Reviewed PMHx, PSHx, social Hx, medications and allergies. PHYSICAL EXAMINATION: BP 101/68 (BP Site: Right Arm, BP Position: Sitting, BP Cuff Size: Regular Adult) Pulse 74 Resp 18 Wt 75.8 kg (167 lb) BMI 23.96 kg/m? General appearance: Well appearing, alert, in no acute distress, well-hydrated, well nourished. Skin: Skin color, texture, turgor normal, no suspicious rashes or lesions Lungs: Lungs clear to auscultation. No wheezing, rhonchi, rales Heart: RRR without murmur, gallop, or rubs. No ectopy. ECG shows SB with occassional PVC, septal infarct age undetermined. Compared to most recent ECG with changes ASSESSMENT/PLAN: 1. Left chest pressure - ICD9: 786.59, ICD10: R07.89 Chest pain of unclear etiology - Electrocardiogram: as above - discussed case with PCP - Referred to ED by squad- patient declined- agreeable to [facility] ER. - ECG COMPLETE W INTERPRETATION - called report to [facility] ER Rosy Parmar APRN.CNP Referring Provider: SELF [[id number]] Allergies As of Date: 04/10/2018 Noted Allergy Reaction MORPHINE 03/05/2018 14 - Other: See Comments Comments: Heart palpitations Date Reviewed: 04/10/2018 Reviewed by: Sharri Hunt - Fully Assessed Primary Visit Diagnosis:Left chest pressure [R07.89] Order(s):ECG COMPLETE W INTERPRETATION [ECG01] Order #: [id number] FUTURE Prescriptions as of 04/10/2018 Sig: DICYCLOMINE 10 MG CAPSULE Take 1-2 capsules by mouth th* DICYCLOMINE 10 MG CAPSULE TAKE 2 CAPSULES 3 TIMES A DAY* ONDANSETRON 4 MG DISINTEGRATI* Take by mouth. TAKE 1 TABLET * TOPIRAMATE XR 100 MG CAPSULE,* Take 100 mg at bedtime daily. PROBIOTIC DIGESTIVE CARE ORAL Take by mouth. SUMATRIPTAN 100 MG TABLET Take 1 tab at migraine onset.* SUMATRIPTAN 85 MG-NAPROXEN 50* Take 1 tab at migraine onset.* ZEMBRACE SYMTOUCH 3 MG/0.5 ML* 1 injection at migraine onset* VITAMIN D-3 ORAL Take by mouth once daily. RIBOFLAVIN (VITAMIN B2) 100 M* Take 100 mg by mouth four janet* MAGNESIUM OXIDE 400 MG (241.3* Take one(1) tablet daily. Problem List As Of Date 04/10/2018 Noted Resolved ACUTE PHARYNGITIS [J02.9] INVALID FOR* MIGRAINE CLASSICAL [G43.109] INVALID FOR* URINARY FREQUENCY [R35.0] INVALID FOR* CERVICALGIA [M54.2] INVALID FOR* S/P endometrial ablation [Z98.890] INVALID FOR* History of meningioma [Z86.018] More... Paresthesia [R20.2] INVALID FOR* Intractable chronic migraine without aura [G43.*INVALID FOR* Medication overuse headache [G44.40] INVALID FOR*12/23/2015 Vitamin D deficiency [E55.9] INVALID FOR* Encounter Status:Closed by RSOY PARMAR CNP on 04/10/18 HOSP Observed: 04/08/2018 Status: COMPLETED Source: [place] 12:00 AM [facility] [place] REPOSITORY Patient:Americo Jack MRN: <[id number]> Height:5' 10(1.778 m) Weight:167 lb (75.751 kg) Outpatient Medications as of 04/24/18: dicyclomine (BENTYL) 10 mg capsule dicyclomine (BENTYL) 10 mg capsule ondansetron orally disintegrating (ZOFRAN ODT) 4 mg disintegrating tablet topiramate (TROKENDI XR) 100 mg cp24 B infantis/B ani/B marilu/B bifid (PROBIOTIC DIGESTIVE CARE ORAL) SUMAtriptan (IMITREX) 100 mg tablet SUMAtriptan-Naproxen (TREXIMET) 85-500 mg per tablet ZEMBRACE SYMTOUCH 3 mg/0.5 mL pnij CALCIUM CARBONATE/VITAMIN D3 (VITAMIN D-3 ORAL) riboflavin, vitamin B2, (VITAMIN B-2) 100 mg tab magnesium oxide 400 mg ORAL tablet Admission/Clinic Administered Medications as of 04/24/18: lactated ringers infusion Problem List: Acute pharyngitis [J02.9] MIGRAINE CLASSICAL [G43.109] Urinary frequency [R35.0] Cervicalgia [M54.2] S/P endometrial ablation [Z98.890] History of meningioma [Z86.018] Paresthesia [R20.2] Intractable chronic migraine without aura [G43.719] Vitamin D deficiency [E55.9] Allergies: Morphine Date Verified: 04/24/18 Lab Values No results within the last 30 days for the following basenames: K,HCT Progress Notes ([facility]): Sujatha Whaley LPN 04/10/2018 8:31 AM Signed Patient called in for an appt today. States that at night for about the last week she has been waking up and it feels like someone is stepping on her chest. Abbe Cabezas DO 04/10/2018 9:37 AM Signed Patient has an appt for today to be seen, if symptoms worsen then she will need to be seen in EMERGENCY DEPARTMENT Abbe Cabezas DO Progress Notes ([facility]): Rosy Parmar APRN.ISAAK 04/10/2018 4:32 PM Signed HPI/CC: Americo Jack is a 53 year old female who presents for chest discomfort. Wakes up at night with pressure left sided chest pain. Intermittent x 1 week. Pain has been constant for approximately a half an hour. Denies nausea, vomiting, diaphoresis, SOB, palpitations, GERD symptoms, abdominal pain, belching, Denies new or unusual stress or previous anxiety. ROS as above, otherwise non-contributory. Reviewed PMHx, PSHx, social Hx, medications and allergies. PHYSICAL EXAMINATION: BP 101/68 (BP Site: Right Arm, BP Position: Sitting, BP Cuff Size: Regular Adult) Pulse 74 Resp 18 Wt 75.8 kg (167 lb) BMI 23.96 kg/m? General appearance: Well appearing, alert, in no acute distress, well-hydrated, well nourished. Skin: Skin color, texture, turgor normal, no suspicious rashes or lesions Lungs: Lungs clear to auscultation. No wheezing, rhonchi, rales Heart: RRR without murmur, gallop, or rubs. No ectopy. ECG shows SB with occassional PVC, septal infarct age undetermined. Compared to most recent ECG with changes ASSESSMENT/PLAN: 1. Left chest pressure - ICD9: 786.59, ICD10: R07.89 Chest pain of unclear etiology - Electrocardiogram: as above - discussed case with PCP - Referred to ED by lynn- patient declined- agreeable to [facility] ER. - ECG COMPLETE W INTERPRETATION - called report to [facility] ER Rosy Parmar APRN.CLAIM PROCESSOR INITAL EVALUATION (1) Observed: 04/01/2018 Status: F [facility]: [facility] 7:57 AM [facility] REPOSITORY [facility] Physical Therapy [facility] [address] [place] [address] Rd[address] [place] [address] Fax REHABILITATION SERVICES INITIAL EVALUATION MR#: [id number] Acct: [id number] Name: AMERICO JACK Rep #: [id number] : 1965 53 From: Liliya Lew DPT Referring DrReddy: Status: REG R Insurance: [facility] SELF [facility]Y INSURANCE Patient's Visit Information AMERICO JACK is a 53 year old F referred to Physical Therapy by ESTRADA DANIELLE with a diagnosis of Cervicalgia and Migraines. Date of Evaluation: 04/01/18 Physical Therapist: Liliya Lew - Visit Plan Frequency: 2x /Week Duration: 4 Weeks Plan: Dry Needling- Postural correction/exercise and manual - Subjective Subjective: Patient reports that her MD in June wanted her to try not doing Botox. Has been doing Botox for at least a year or possibly 2. 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 DAVIES started after that. Went awhile without Botox and tried to double meds- couldn't handle it and had to go back on Botox. Has tried a lot of things and she is ready to try something. Heat triggers migraines and she has been pretty miserable. Had botox 2 weeks ago- it gave her a lot of relief. Has a slight DAVIES everyday and a big one 2-3x a week. Gets pockets on the head- eye DAVIES stabbing- and ones that come up the back. Does have break through medication and does have to use it. The medication helps but sometimes it takes awhile- gets nausea. Was bucked by a horse last night and she is a little sore today. Muscle pain is in the upper traps on both sides but left is worse than right. DAVIES are mostly on the right. N/T in the hands from the Topomax. The trokendy did not give her side effects. 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 If she can catch them in time she can muscle through. Makes herself keep moving. Once in awhile she gets spots in her vision. PMHx: tumor on spinal cord removed Meds: topomax, treximate as needed. Has been a couple of years since MRI and x-rays. is thinking about doing them again. Gets a weird pain down the left side of the chest since 2006- has had heart tests which were negative. Went to ER a few weeks ago and is now fighting Gallbladder. Sleep: disturbed- sometimes can't sleep flat. - Objective Gait: WNL- good arm swing and trunk rotation- does have rounded shoulders. Posture: rounded shoulders, kyphosis, increased thoracic flexion while seated. L shoulder slightly elevated. Leaning to R while seated in chair. Palpation: upper trapezius restriction- significant restriction with cervical musculature. AROM: cervical ROM limited in all directions- flexion: decreased by 50%, Extn: decreased by 25%, SB: decreased by 50% Rot: decreased 50% UE: WNL. Observation: incision along spine - well healed- approx T3- C5. Strength: Scapular: poor, Shoulder: 4+/5 throughout. - Goals Goal 1:: Patient will be I with HEP and progression Goal Time Frame: 4-6 Weeks Goal 2:: Patient will maintain proper posture t/o tx session to demo increase scap s/s. Goal Time Frame: 4-6 Weeks Goal 3:: Patient will report no major DAVIES for 1 week Goal Time Frame: 4-6 Weeks - Rehabilitation Potential Physical Therapy Diagnosis: Patient presents with hypomobility- she has decreased ROM, strength and muscular endurance leading to poor posture and increased pain. Rehabilitation Potential: Good - Anticipated Interventions Patient/Client Instruction: Educate patient on: Benefits of Fitness Program For the Purpose of:: To increase ROM Therapeutic Exercise to Include: Strength training, Endurance training, Body mechanics, Postural training, Scapular Strength/Stabilization For the Purpose of:: To improve muscle performance and motor function Manual Therapy Techniques to Include: Mobilization, Functional dry needling, Soft tissue mobilization For the Purpose of:: To improve nutrient delivery to tissue Thank you for the opportunity to evaluate your patient. For Medicare and Medicare HMO plans, please review the plan of care and approve it. It will need to be FAXED BACK to us at [phone] for Medicare purposes. Please let me know if there are questions or concerns regarding this plan of care. Physician Signature: Date: <Electronically signed by Liliya Lew DPT> 04/01/18 0757 CC: Abbe Malave DO; OUT OF TOWN DOCTOR ELR Signed For Medicare only, by signing this I certify the plan of care. Physicians Signature Date PROGRESS Observed: 03/20/2018 Status: COMPLETED Source: [place] 11:48 AM [facility] REPOSITORY HNO ID: [id number] Author: Estrada Danielle Service: (none) Author Type: Physician Type: Progress Notes Filed: 03/20/2018 12:54 PM Note Text: Headache Center - Follow-up Visit ASSESSMENT: 53?year old female with history significant for anxiety, migraine, neck pain, cervical meningioma s/p C5-T1 laminectomy, and chronic daily headache consistent with chronic migraine with contributions from chronic cervical musculoskeletal pain, and L TMJ pain/dysfunction. She does well with Botox, going from potentially 30 days of headache per month down 7?days at best with much less intensity. Trokendi seems to have provided additional benefit, and she tolerates it much better than Topamax. ? PLAN: (Please see typed patient instructions for detailed instructions) --->?Acute Treatment: -Triptan. ?? --->?Preventive Treatment: -Resart Botox today. -Trokendi 100 mg daily. -Cymbalta would be a good consideration next to also target the chronic neck pain, which I suspect is likely one of her headache triggers, but she was previously hesitant about starting this. -Aimovig discussed as another future consideration. -Neck PT. ---> May update cervical MRI if still having neck, L arm/jaw discomfort after PT. I also suggested discussing with PCP to rule out cardiac causes of L arm/chest, jaw discomfort (although chronic and reports prior cardiac evals neg). --->?Follow-up: 3?months, or sooner if she would like to restart Botox. Last Visit: 10/11/17 Interval Headache Hx: Insurance was not allowing Nicko so went back to Topamax. 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 Neck and L arm/chest, jaw discomfort variable most of the time. Wants to restart neck PT and dry needling as suggested at last visit since she felt it was helpful. 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 B infantis/B ani/B marilu/B bifid (PROBIOTIC DIGESTIVE CARE ORAL) Take by mouth. SUMAtriptan (IMITREX) 100 mg tablet Take 1 tab at migraine onset. May repeat once in 2 hours if needed. Give max allowed per insurance. SUMAtriptan-Naproxen (TREXIMET) 85-500 mg per tablet Take 1 tab at migraine onset. May repeat once in 2 hours if needed. Give max allowed per insurance. ZEMBRACE SYMTOUCH 3 mg/0.5 mL pnij 1 injection at migraine onset. May repeat once in 2 hours if needed. CALCIUM CARBONATE/VITAMIN D3 (VITAMIN D-3 ORAL) Take by mouth once daily. riboflavin, vitamin B2, (VITAMIN B-2) 100 mg tab Take 100 mg by mouth four times daily. magnesium oxide 400 mg ORAL tablet Take one(1) tablet daily. dicyclomine (BENTYL) 10 mg capsule Take 1-2 capsules by mouth three times daily with meals. dicyclomine (BENTYL) 10 mg capsule TAKE 2 CAPSULES 3 TIMES A DAY BEFORE MEALS ondansetron orally disintegrating (ZOFRAN ODT) 4 mg disintegrating tablet Take by mouth. TAKE 1 TABLET BY MOUTH EVERY 8 HOURS NEEDED FOR NAUSEA No current facility-administered medications for this visit. REVIEW OF SYSTEMS: Review of system : unchanged from the previous visit (sleep patterns, mood, energy, appetite, stress, exercising). Physical Examination: BP 105/66 Pulse 65 Wt 75.3 kg (166 lb) BMI 23.82 kg/m? GEN: Alert. NAD. Normal affect. Cooperative. NECK/BACK: Suboccipital tenderness present. Paracervical and upper shoulder musculature/traps tenderness and hypertonicity present. NEUROLOGICAL: A+O x 3. Attentive. Thought process and content unremarkable. Follows commands appropriately. Speech fluent. Procedure Note for BOTOX and Trigger Point Injections The risks, benefits, side effects (including difficulty breathing or swallowing), alternatives, anticipated outcomes of the procedure, and the roles and tasks of the personnel to be involved, were discussed with the patient, and the patient consents to the procedure and agrees to proceed. An electronic consent form was also filled out and filed in [facility]. After sterilizing injection sites, each of the following injections were completed according to the PREEMPT protocol, following aspiration to ensure lack of blood flow. UNIVERSAL PROTOCOL / SAFETY CHECKLIST Procedure to be performed: Botox Sign in Communication: Completed Time Out: Team Confirms the Correct Patient, Correct Procedure, Correct Site and Site Marking, Correct Position (if applicable). Time: 1155 Affirmation of Time Out: YES Sign Out Discussion: Completed Estrada Danielle DO Treatment # 9 Botox Vial 1, 2: Lot: [id number], Expiration: 09/2020 Dilution: 5 units/0.1 ml Diluent: 0.25% Bupivacaine (Marcaine) Lot: [id number], Expiration: 07/16/19 Indication: Chronic migraine UNITS: Muscle Right Left # of Injection Sites Per Side Total Units Food Production Manager 5 5 1 10 Procerus 1 midline (5u) 5 Frontalis 10 10 2 20 Temporalis 25 25 5 50 Occipitalis/Sub 20 20 4 40 Trapezius 27.5 27.5 6 55 Cervical PSPs 10 10 2 20 Total: 200 Patient tolerated the procedure well. 0 units were wasted. Estrada Danielle DO [facility] [place] Department of [facility] - Headache and Chronic Pain Medicine [address] [place] [phone] Pager [phone] Total time in minutes spent with patient, reviewing records, imaging, labs, and documentin with more than 50% of the time spent in patient education/counselling/coordinating care with the patient. cc: Abbe Cabezas DO [address] [place] [address] CNASHWIN Observed: 03/20/2018 Status: COMPLETED Source: [place] 11:20 AM [facility] REPOSITORY Office Visit (NEURBR) AMERICO JACK ([id number]) 1965 F Date Time Provider Department 03/20/18 11:20 AM ESTRADA DANIELLE NEURPAZ During your visit today, we recorded the following information about you: Pulse Blood pressure Weight 65/minute 105/66 75.3 kg Estrada Danielle DO 03/20/2018 12:54 PM Signed Headache Center - Follow-up Visit ASSESSMENT: 53?year old female with history significant for anxiety, migraine, neck pain, cervical meningioma s/p C5-T1 laminectomy, and chronic daily headache consistent with chronic migraine with contributions from chronic cervical musculoskeletal pain, and L TMJ pain/dysfunction. She does well with Botox, going from potentially 30 days of headache per month down 7?days at best with much less intensity. Trokendi seems to have provided additional benefit, and she tolerates it much better than Topamax. ? PLAN: (Please see typed patient instructions for detailed instructions) --->?Acute Treatment: -Triptan. ?? --->?Preventive Treatment: -Resart Botox today. -Trokendi 100 mg daily. -Cymbalta would be a good consideration next to also target the chronic neck pain, which I suspect is likely one of her headache triggers, but she was previously hesitant about starting this. -Aimovig discussed as another future consideration. -Neck PT. ---> May update cervical MRI if still having neck, L arm/jaw discomfort after PT. I also suggested discussing with PCP to rule out cardiac causes of L arm/chest, jaw discomfort (although chronic and reports prior cardiac evals neg). --->?Follow-up: 3?months, or sooner if she would like to restart Botox. Last Visit: 10/11/17 Interval Headache Hx: Insurance was not allowing Trokendi so went back to Topamax. 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 Neck and L arm/chest, jaw discomfort variable most of the time. Wants to restart neck PT and dry needling as suggested at last visit since she felt it was helpful. 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 B infantis/B ani/B marilu/B bifid (PROBIOTIC DIGESTIVE CARE ORAL) Take by mouth. SUMAtriptan (IMITREX) 100 mg tablet Take 1 tab at migraine onset. May repeat once in 2 hours if needed. Give max allowed per insurance. SUMAtriptan-Naproxen (TREXIMET) 85-500 mg per tablet Take 1 tab at migraine onset. May repeat once in 2 hours if needed. Give max allowed per insurance. ZEMBRACE SYMTOUCH 3 mg/0.5 mL pnij 1 injection at migraine onset. May repeat once in 2 hours if needed. CALCIUM CARBONATE/VITAMIN D3 (VITAMIN D-3 ORAL) Take by mouth once daily. riboflavin, vitamin B2, (VITAMIN B-2) 100 mg tab Take 100 mg by mouth four times daily. magnesium oxide 400 mg ORAL tablet Take one(1) tablet daily. dicyclomine (BENTYL) 10 mg capsule Take 1-2 capsules by mouth three times daily with meals. dicyclomine (BENTYL) 10 mg capsule TAKE 2 CAPSULES 3 TIMES A DAY BEFORE MEALS ondansetron orally disintegrating (ZOFRAN ODT) 4 mg disintegrating tablet Take by mouth. TAKE 1 TABLET BY MOUTH EVERY 8 HOURS NEEDED FOR NAUSEA No current facility-administered medications for this visit. REVIEW OF SYSTEMS: Review of system : unchanged from the previous visit (sleep patterns, mood, energy, appetite, stress, exercising). Physical Examination: BP 105/66 Pulse 65 Wt 75.3 kg (166 lb) BMI 23.82 kg/m? GEN: Alert. NAD. Normal affect. Cooperative. NECK/BACK: Suboccipital tenderness present. Paracervical and upper shoulder musculature/traps tenderness and hypertonicity present. NEUROLOGICAL: A+O x 3. Attentive. Thought process and content unremarkable. Follows commands appropriately. Speech fluent. Procedure Note for BOTOX and Trigger Point Injections The risks, benefits, side effects (including difficulty breathing or swallowing), alternatives, anticipated outcomes of the procedure, and the roles and tasks of the personnel to be involved, were discussed with the patient, and the patient consents to the procedure and agrees to proceed. An electronic consent form was also filled out and filed in [facility]. After sterilizing injection sites, each of the following injections were completed according to the PREEMPT protocol, following aspiration to ensure lack of blood flow. UNIVERSAL PROTOCOL / SAFETY CHECKLIST Procedure to be performed: Botox Sign in Communication: Completed Time Out: Team Confirms the Correct Patient, Correct Procedure, Correct Site and Site Marking, Correct Position (if applicable). Time: 1155 Affirmation of Time Out: YES Sign Out Discussion: Completed Estrada Danielle DO Treatment # 9 Botox Vial 1, 2: Lot: [id number], Expiration: 09/2020 Dilution: 5 units/0.1 ml Diluent: 0.25% Bupivacaine (Marcaine) Lot: [id number], Expiration: 07/16/19 Indication: Chronic migraine UNITS: Muscle Right Left # of Injection Sites Per Side Total Units Food Production Manager 5 5 1 10 Procerus 1 midline (5u) 5 Frontalis 10 10 2 20 Temporalis 25 25 5 50 Occipitalis/Sub 20 20 4 40 Trapezius 27.5 27.5 6 55 Cervical PSPs 10 10 2 20 Total: 200 Patient tolerated the procedure well. 0 units were wasted. Estrada Danielle DO [facility] [place] Department of [facility] Chronic Pain Medicine [address] [place] [phone] Pager [phone] Total time in minutes spent with patient, reviewing records, imaging, labs, and documentin with more than 50% of the time spent in patient education/counselling/coordinating care with the patient. cc: Abbe Cabezas DO [address] [place] [phone] Referring Provider: SELF [200] Allergies As of Date: 03/20/2018 Noted Allergy Reaction MORPHINE 03/05/2018 14 - Other: See Comments Comments: Heart palpitations Date Reviewed: 03/20/2018 Reviewed by: Estrada Danielle - Fully Assessed Reason for Visit: Botox Injection [373] Primary Visit Diagnosis:Chronic migraine without aura, with intractable migraine, so stated, with status migrainosus [G43.711] Other Visit Diagnoses:Cervicalgia [M54.2] Intractable chronic migraine without aura and without status migrainosus [G43.719] Chronic daily headache [R51] Order(s):CONSULT TO PHYSICAL THERAPY [1105] Order #: [id number]: 1 [] onabotulinum toxin type A 200 Units injection (BOTOX)Disp: Rfl: [] bupivacaine 10 mg injection (SENSORCAINE)Disp: Rfl: Prescriptions as of 03/20/2018 Sig: TOPIRAMATE XR 100 MG CAPSULE,* Take 100 mg at bedtime daily. PROBIOTIC DIGESTIVE CARE ORAL Take by mouth. SUMATRIPTAN 100 MG TABLET Take 1 tab at migraine onset.* SUMATRIPTAN 85 MG-NAPROXEN 50* Take 1 tab at migraine onset.* ZEMBRACE SYMTOUCH 3 MG/0.5 ML* 1 injection at migraine onset* VITAMIN D-3 ORAL Take by mouth once daily. RIBOFLAVIN (VITAMIN B2) 100 M* Take 100 mg by mouth four janet* MAGNESIUM OXIDE 400 MG (241.3* Take one(1) tablet daily. DICYCLOMINE 10 MG CAPSULE Take 1-2 capsules by mouth th* DICYCLOMINE 10 MG CAPSULE TAKE 2 CAPSULES 3 TIMES A DAY* ONDANSETRON 4 MG DISINTEGRATI* Take by mouth. TAKE 1 TABLET * Problem List As Of Date 03/20/2018 Noted Resolved ACUTE PHARYNGITIS [J02.9] INVALID FOR* MIGRAINE CLASSICAL [G43.109] INVALID FOR* URINARY FREQUENCY [R35.0] INVALID FOR* CERVICALGIA [M54.2] INVALID FOR* S/P endometrial ablation [Z98.890] INVALID FOR* History of meningioma [Z86.018] More... Paresthesia [R20.2] INVALID FOR* Intractable chronic migraine without aura [G43.*INVALID FOR* Medication overuse headache [G44.40] INVALID FOR*12/23/2015 Vitamin D deficiency [E55.9] INVALID FOR* Prescriptions ordered this encounter Disp Refills Start End ONABOTULINUMTOXINA 100 UNIT SOLUTION* 03/20/2018 03/20/2018 Route: INTRAMUSCULA BUPIVACAINE 0.25 % (2.5 MG/ML) INJEC* 03/20/2018 03/20/2018 Route: SUBCUTANEOUS Medications Discontinued During This Encounter diclofenac sodium (VOLTAREN) 1 % top* 1 Tu* 3 03/07/2017 03/20/2018 Route: TOPICAL Sig: Apply 2 g to affected area four times daily. Disc: Course of therapy completed Disposition: Return in about 3 months (around 06/19/2018). Follow-up and Disposition History Recorded Encounter Status:Closed by ESTRADA DANIELLE DO on 03/20/18 PROGRESS Observed: 03/05/2018 Status: COMPLETED Source: [place] 9:18 AM [facility] [place] REPOSITORY [facility] ID: [id number] Author: Rosy Granados (Pa) Service: (none) Author Type: Physician Gis Mapping Technician Type: Progress Notes Filed: 03/05/2018 11:15 AM Note Text: HISTORY AND PHYSICAL Americo Jack 1965 [facility] COMPLAINT: abnormal us gallbladder HPI: The patient is a 53 year old female referred for abdominal pain. Americo notes last Sunday she woke up at 4 am with severe epigastric pain. She states for dinner the previous night she had eaten a little sweet corn and nothing else. She noted associated nausea and sweating. Denies fevers or emesis. Denies any change in bowel habits. Her pain persisted throughout the day, she contacted her PCP and was advised to go to the emergency department. The patient was treated with IV fluids, morphine and Zofran-notes she had adverse reaction to morphine including heart palpitations and chest discomfort. Total bilirubin in emergency department was 1.0, lipase 147. Troponin negative. EKG showed no acute ischemic changes. Patient had an ultrasound of the right upper quadrant which showed a small amount of sludge in gallbladder without significant wall thickening or pericholecystic fluid. She was prescribed Zofran and Bentyl and advised to follow up with Dr. Zhang as an outpatient. 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 The patient denies any prior episodes of similar pain. Denies family history of gallbladder disease. She notes that eating seems to make pain worse, regardless of food type. Pain started in epigastric area, she does also note some radiation to right upper quadrant and pressure sensation in this area. She has been eating very little since her ED visit. Patient denies history of ulcers in the past but does note that she frequently has to take naproxen-containing medications for migraines. Denies significant caffeine or spicy food intake and does not use tobacco. Patient just recently had colonoscopy in January, has not had EGD in the past. Patient's past medical history is significant for patient foramen ovale, migraines, irritable bowel syndrome, history of meningioma. PAST MEDICAL HISTORY Diagnosis Date - Anxiety state, unspecified - Cervicalgia - Constipation - History of meningioma 1995 Cervical spine - Irritable bowel syndrome - Migraine without aura, without mention of intractable migraine without mention of status migrainosus - PFO (patent foramen ovale) - Snoring - Unspecified viral meningitis 2002 PAST SURGICAL HISTORY Procedure Laterality Date - COLONOSCOP W/ OR W/O BRSH SPEC 01/24/2018 Colonoscopy - LIGATE FALLOPIAN TUBE 02/18 Tubal ligation and Novasure ablation - PAST SURGICAL HISTORY OF 1995 tumor off spinal cord- meningioma C7- [facility] Dr. Braun - PAST SURGICAL HISTORY OF left hand surgery- fracture 5th digit Current Outpatient Prescriptions: dicyclomine (BENTYL) 10 mg capsule Take 1-2 capsules by mouth three times daily with meals. dicyclomine (BENTYL) 10 mg capsule TAKE 2 CAPSULES 3 TIMES A DAY BEFORE MEALS ondansetron orally disintegrating (ZOFRAN ODT) 4 mg disintegrating tablet Take by mouth. TAKE 1 TABLET BY MOUTH EVERY 8 HOURS NEEDED FOR NAUSEA topiramate (TROKENDI XR) 100 mg cp24 Take 100 mg at bedtime daily. B infantis/B ani/B marilu/B bifid (PROBIOTIC DIGESTIVE CARE ORAL) Take by mouth. SUMAtriptan (IMITREX) 100 mg tablet Take 1 tab at migraine onset. May repeat once in 2 hours if needed. Give max allowed per insurance. SUMAtriptan-Naproxen (TREXIMET) 85-500 mg per tablet Take 1 tab at migraine onset. May repeat once in 2 hours if needed. Give max allowed per insurance. ZEMBRACE SYMTOUCH 3 mg/0.5 mL pnij 1 injection at migraine onset. May repeat once in 2 hours if needed. diclofenac sodium (VOLTAREN) 1 % topical gel Apply 2 g to affected area four times daily. CALCIUM CARBONATE/VITAMIN D3 (VITAMIN D-3 ORAL) Take by mouth once daily. riboflavin, vitamin B2, (VITAMIN B-2) 100 mg tab Take 100 mg by mouth four times daily. magnesium oxide 400 mg ORAL tablet Take one(1) tablet daily. No current facility-administered medications for this visit. ALLERGIES: Patient has no known allergies. 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 Main Topics Smoking status: Never Smoker Smokeless tobacco: Never Used Alcohol use: Yes Comment: Rarely Drug use: No Comment: caffeine: none Sexual activity: Yes Partners with: Male control/protection: Tubal Ligation Comment: Ablation FAMILY HISTORY: FAMILY HISTORY Problem Relation Age of Onset - Hypertension Mother - Headache Mother - Heart Father CHF- age 81 - Diabetes Father - Prostate Cancer Father - Multiple Sclerosis Sister - other (PFO [Other]) Son with subsequent stroke REVIEW OF SYMPTOMS: The review of systems data was entered by the nurse and reviewed by me Nursing Notes: Eligio Hartley LPN 03/05/2018 9:34 AM Signed REVIEW OF SYSTEMS: General: The patient denies fatigue, denies weight loss, denies weight gain, denies feeling hot, and denies feelings of cold. Eyes: The patient denies glaucoma, denies eye injury/surgery, does not wear glasses or contacts. Ear/Nose/Throat: The patient denies allergies, denies hayfever, denies ear infections, and denies bloody noses. Cardiovascular: The patient denies chest pain, denies heart disease, denies high blood pressure,denies cardiac stent, denies prior heart attack, denies irregular heart beat, denies high cholesterol, denies poor circulation, denies heart failure, NOTRES cardiac issues (PFO), denies claudication, denies cold feet, denies peripheral arterial stent. Respiratory: The patient denies tuberculosis, denies pneumonia, denies frequent cough, denies pulmonary embolism, denies shortness of breath, and denies coughing up blood. Gastrointestinal: The patient denies difficulty swallowing, denies acid reflux, denies ulcers, denies vomiting, denies jaundice/hepatitis, denies gallbladder problems, denies black or tarry stools, denies hemorrhoids, denies bleeding from rectum, NOTES diverticulitis, denies constipation, denies diarrhea, denies loss of stool control, and denies hernias. Kidney/Bladder: The patient denies kidney stones, denies urine infections, and denies bloody urine. Skin: The patient denies a history of skin cancer, denies bleeding/changing moles, and denies a history of skin rash. Neurologic: The patient denies a history of epilepsy/convulsions, NOTES headaches, denies head/spinal injuries, and denies stroke/TIA. Psychiatric: The patient denies psychiatric medications, denies depression, and denies voices, denies substance abuse. Endocrine: The patient denies thyroid disorders, denies diabetes, and denies hormonal problems. Hematologic: The patient denies a history of bruising, denies bleeding, and denies anemia, denies blood clots. Infections: The patient denies a history of measles and mumps, denies rheumatic fever, and denies sexually transmitted diseases. Musculoskeletal: The patient denies back pain/injury, denies back problems, denies sciatica, denies knee/foot trouble, denies arthritis, or denies gout. When was patient's last Mammogram screening? 2016 Last Colonoscopy: 01/24/18 Eligio Hartley LPN I have confirmed and edited as necessary, the PFSH and ROS obtained by others. PHYSICAL EXAMINATION: General: The patient is 53 year old female, well nourished, well hydrated in no acute distress. The patient is oriented to time, place, and person. VITALS: Weight 74.8 kg (165 lb). Body mass index is 23.68 kg/m?. HEENT: Normal cephalic, ataumatic, pupils are equally round, sclera are anicteric, mucous membranes are moist, oropharynx is clear. Neck has no masses, asymmetry or lymphadenopathy. Respiratory: Clear to auscultation and percussion. Normal respiratory excursion and pattern. Cardiac: Examination is regular rate and rhythm. Abdominal exam: Soft, +mild TTP epigastric area and RUQ without rebound or guarding, negative Minor's sign, with no palpable masses. No hepatosplenomegaly. No palpable hernias. Rectal exam: exam deferred Extremities: no clubbing, cyanosis or edema. No adenopathy. Other: LABORATORY VALUES: As Noted RADIOLOGIC STUDIES: As Noted Assessment IMPRESSION: epigastric and right upper quadrant discomfort, small amount of sludge on ultrasound without wall thickening or pericholecystic fluid. History of NSAID use PLAN: I have recommended upper endoscopy to rule out gastritis and/or peptic ulcer disease as a cause of patient's symptoms. If upper endoscopy is negative, would proceed with laparoscopic cholecystectomy. Patient to discuss further with Dr. Zhang when he returns to office. Consent: The proposed procedure, risks, benefits, and alternatives were discussed with the patient in detail. All the patient's questions were answered, and the patient voiced understanding. The patient desires to proceed with endoscopy. Diagnoses: (R10.13) Epigastric abdominal pain (primary encounter diagnosis) (R10.11) Right upper quadrant abdominal pain (Z79.1) NSAID long-term use (K83.8) Biliary sludge My findings have been forwarded to Dr. Abbe Cabezas DO. Return to Clinic: The patient is instructed to follow-up with me 1 week post operatively. Rosy Doreen, PA-C CNOV Observed: 03/04/2018 Status: COMPLETED Source: [place] 3:45 PM [facility] REPOSITORY Office Visit (GENSWS) AMERICO JACK ([id number]) 1965 F Date Time Provider Department 03/04/18 3:45 PM ROSY GRANADOS (PA) During your visit today, we recorded the following information about you: Weight 74.8 kg Rosy Granados PA-C 03/05/2018 11:15 AM Addendum HISTORY AND PHYSICAL Americo Jack 1965 [facility]IEF COMPLAINT: abnormal us gallbladder HPI: The patient is a 53 year old female referred for abdominal pain. Americo notes last Sunday she woke up at 4 am with severe epigastric pain. She states for dinner the previous night she had eaten a little sweet corn and nothing else. She noted associated nausea and sweating. Denies fevers or emesis. Denies any change in bowel habits. Her pain persisted throughout the day, she contacted her PCP and was advised to go to the emergency department. The patient was treated with IV fluids, morphine and Zofran-notes she had adverse reaction to morphine including heart palpitations and chest discomfort. Total bilirubin in emergency department was 1.0, lipase 147. Troponin negative. EKG showed no acute ischemic changes. Patient had an ultrasound of the right upper quadrant which showed a small amount of sludge in gallbladder without significant wall thickening or pericholecystic fluid. She was prescribed Zofran and Bentyl and advised to follow up with Dr. Zhang as an outpatient. 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 The patient denies any prior episodes of similar pain. Denies family history of gallbladder disease. She notes that eating seems to make pain worse, regardless of food type. Pain started in epigastric area, she does also note some radiation to right upper quadrant and pressure sensation in this area. She has been eating very little since her ED visit. Patient denies history of ulcers in the past but does note that she frequently has to take naproxen-containing medications for migraines. Denies significant caffeine or spicy food intake and does not use tobacco. Patient just recently had colonoscopy in January, has not had EGD in the past. Patient's past medical history is significant for patient foramen ovale, migraines, irritable bowel syndrome, history of meningioma. PAST MEDICAL HISTORY Diagnosis Date - Anxiety state, unspecified - Cervicalgia - Constipation - History of meningioma 1995 Cervical spine - Irritable bowel syndrome - Migraine without aura, without mention of intractable migraine without mention of status migrainosus - PFO (patent foramen ovale) - Snoring - Unspecified viral meningitis 2002 PAST SURGICAL HISTORY Procedure Laterality Date - COLONOSCOP W/ OR W/O [facility] SPEC 01/24/2018 Colonoscopy - LIGATE FALLOPIAN TUBE 02/18 Tubal ligation and Novasure ablation - PAST SURGICAL HISTORY OF 1995 tumor off spinal cord- meningioma C7- [facility] Dr. Braun - PAST SURGICAL HISTORY OF left hand surgery- fracture 5th digit Current Outpatient Prescriptions: dicyclomine (BENTYL) 10 mg capsule Take 1-2 capsules by mouth three times daily with meals. dicyclomine (BENTYL) 10 mg capsule TAKE 2 CAPSULES 3 TIMES A DAY BEFORE MEALS ondansetron orally disintegrating (ZOFRAN ODT) 4 mg disintegrating tablet Take by mouth. TAKE 1 TABLET BY MOUTH EVERY 8 HOURS NEEDED FOR NAUSEA topiramate (TROKENDI XR) 100 mg cp24 Take 100 mg at bedtime daily. B infantis/B ani/B marilu/B bifid (PROBIOTIC DIGESTIVE CARE ORAL) Take by mouth. SUMAtriptan (IMITREX) 100 mg tablet Take 1 tab at migraine onset. May repeat once in 2 hours if needed. Give max allowed per insurance. SUMAtriptan-Naproxen (TREXIMET) 85-500 mg per tablet Take 1 tab at migraine onset. May repeat once in 2 hours if needed. Give max allowed per insurance. ZEMBRACE SYMTOUCH 3 mg/0.5 mL pnij 1 injection at migraine onset. May repeat once in 2 hours if needed. diclofenac sodium (VOLTAREN) 1 % topical gel Apply 2 g to affected area four times daily. CALCIUM CARBONATE/VITAMIN D3 (VITAMIN D-3 ORAL) Take by mouth once daily. riboflavin, vitamin B2, (VITAMIN B-2) 100 mg tab Take 100 mg by mouth four times daily. magnesium oxide 400 mg ORAL tablet Take one(1) tablet daily. No current facility-administered medications for this visit. ALLERGIES: Patient has no known allergies. 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 Social History Main Topics Smoking status: Never Smoker Smokeless tobacco: Never Used Alcohol use: Yes Comment: Rarely Drug use: No Comment: caffeine: none Sexual activity: Yes Partners with: Male control/protection: Tubal Ligation Comment: Ablation FAMILY HISTORY: FAMILY HISTORY Problem Relation Age of Onset - Hypertension Mother - Headache Mother - Heart Father CHF- age 81 - Diabetes Father - Prostate Cancer Father - Multiple Sclerosis Sister - other (PFO [Other]) Son with subsequent stroke REVIEW OF SYMPTOMS: The review of systems data was entered by the nurse and reviewed by de Nursing Notes: Eligio Hartley LPN 03/05/2018 9:34 AM Signed REVIEW OF SYSTEMS: General: The patient denies fatigue, denies weight loss, denies weight gain, denies feeling hot, and denies feelings of cold. Eyes: The patient denies glaucoma, denies eye injury/surgery, does not wear glasses or contacts. Ear/Nose/Throat: The patient denies allergies, denies hayfever, denies ear infections, and denies bloody noses. Cardiovascular: The patient denies chest pain, denies heart disease, denies high blood pressure,denies cardiac stent, denies prior heart attack, denies irregular heart beat, denies high cholesterol, denies poor circulation, denies heart failure, NOTRES cardiac issues (PFO), denies claudication, denies cold feet, denies peripheral arterial stent. Respiratory: The patient denies tuberculosis, denies pneumonia, denies frequent cough, denies pulmonary embolism, denies shortness of breath, and denies coughing up blood. Gastrointestinal: The patient denies difficulty swallowing, denies acid reflux, denies ulcers, denies vomiting, denies jaundice/hepatitis, denies gallbladder problems, denies black or tarry stools, denies hemorrhoids, denies bleeding from rectum, NOTES diverticulitis, denies constipation, denies diarrhea, denies loss of stool control, and denies hernias. Kidney/Bladder: The patient denies kidney stones, denies urine infections, and denies bloody urine. Skin: The patient denies a history of skin cancer, denies bleeding/changing moles, and denies a history of skin rash. Neurologic: The patient denies a history of epilepsy/convulsions, NOTES headaches, denies head/spinal injuries, and denies stroke/TIA. Psychiatric: The patient denies psychiatric medications, denies depression, and denies voices, denies substance abuse. Endocrine: The patient denies thyroid disorders, denies diabetes, and denies hormonal problems. Hematologic: The patient denies a history of bruising, denies bleeding, and denies anemia, denies blood clots. Infections: The patient denies a history of measles and mumps, denies rheumatic fever, and denies sexually transmitted diseases. Musculoskeletal: The patient denies back pain/injury, denies back problems, denies sciatica, denies knee/foot trouble, denies arthritis, or denies gout. When was patient's last Mammogram screening? 2017 Last Colonoscopy: 01/24/18 Eligio Hartley LPN I have confirmed and edited as necessary, the PFSH and ROS obtained by others. PHYSICAL EXAMINATION: General: The patient is 53 year old female, well nourished, well hydrated in no acute distress. The patient is oriented to time, place, and person. VITALS: Weight 74.8 kg (165 lb). Body mass index is 23.68 kg/m?. HEENT: Normal cephalic, ataumatic, pupils are equally round, sclera are anicteric, mucous membranes are moist, oropharynx is clear. Neck has no masses, asymmetry or lymphadenopathy. Respiratory: Clear to auscultation and percussion. Normal respiratory excursion and pattern. Cardiac: Examination is regular rate and rhythm. Abdominal exam: Soft, +mild TTP epigastric area and RUQ without rebound or guarding, negative Minor's sign, with no palpable masses. No hepatosplenomegaly. No palpable hernias. Rectal exam: exam deferred Extremities: no clubbing, cyanosis or edema. No adenopathy. Other: LABORATORY VALUES: As Noted RADIOLOGIC STUDIES: As Noted Assessment IMPRESSION: epigastric and right upper quadrant discomfort, small amount of sludge on ultrasound without wall thickening or pericholecystic fluid. History of NSAID use PLAN: I have recommended upper endoscopy to rule out gastritis and/or peptic ulcer disease as a cause of patient's symptoms. If upper endoscopy is negative, would proceed with laparoscopic cholecystectomy. Patient to discuss further with Dr. Zhang when he returns to office. Consent: The proposed procedure, risks, benefits, and alternatives were discussed with the patient in detail. All the patient's questions were answered, and the patient voiced understanding. The patient desires to proceed with endoscopy. Diagnoses: (R10.13) Epigastric abdominal pain (primary encounter diagnosis) (R10.11) Right upper quadrant abdominal pain (Z79.1) NSAID long-term use (K83.8) Biliary sludge My findings have been forwarded to Dr. Abbe Cabezas DO. Return to Clinic: The patient is instructed to follow-up with me 1 week post operatively. UMU Cordero LPN 03/05/2018 9:34 AM Signed REVIEW OF SYSTEMS: General: The patient denies fatigue, denies weight loss, denies weight gain, denies feeling hot, and denies feelings of cold. Eyes: The patient denies glaucoma, denies eye injury/surgery, does not wear glasses or contacts. Ear/Nose/Throat: The patient denies allergies, denies hayfever, denies ear infections, and denies bloody noses. Cardiovascular: The patient denies chest pain, denies heart disease, denies high blood pressure,denies cardiac stent, denies prior heart attack, denies irregular heart beat, denies high cholesterol, denies poor circulation, denies heart failure, NOTRES cardiac issues (PFO), denies claudication, denies cold feet, denies peripheral arterial stent. Respiratory: The patient denies tuberculosis, denies pneumonia, denies frequent cough, denies pulmonary embolism, denies shortness of breath, and denies coughing up blood. Gastrointestinal: The patient denies difficulty swallowing, denies acid reflux, denies ulcers, denies vomiting, denies jaundice/hepatitis, denies gallbladder problems, denies black or tarry stools, denies hemorrhoids, denies bleeding from rectum, NOTES diverticulitis, denies constipation, denies diarrhea, denies loss of stool control, and denies hernias. Kidney/Bladder: The patient denies kidney stones, denies urine infections, and denies bloody urine. Skin: The patient denies a history of skin cancer, denies bleeding/changing moles, and denies a history of skin rash. Neurologic: The patient denies a history of epilepsy/convulsions, NOTES headaches, denies head/spinal injuries, and denies stroke/TIA. Psychiatric: The patient denies psychiatric medications, denies depression, and denies voices, denies substance abuse. Endocrine: The patient denies thyroid disorders, denies diabetes, and denies hormonal problems. Hematologic: The patient denies a history of bruising, denies bleeding, and denies anemia, denies blood clots. Infections: The patient denies a history of measles and mumps, denies rheumatic fever, and denies sexually transmitted diseases. Musculoskeletal: The patient denies back pain/injury, denies back problems, denies sciatica, denies knee/foot trouble, denies arthritis, or denies gout. When was patient's last Mammogram screening? 2017 Last Colonoscopy: 01/24/18 Eligio Hartley LPN Referring Provider: [facility] [[id number]] Allergies As of Date: 03/04/2018 (No Known Allergies) Date Reviewed: 03/04/2018 Reviewed by: Rosy Cerda) Doreen - Fully Assessed Reason for Visit: abnormal us gallbladder [Other] Primary Visit Diagnosis:Epigastric abdominal pain [R10.13] Other Visit Diagnoses:Right upper quadrant abdominal pain [R10.11] NSAID long-term use [Z79.1] Biliary sludge [K83.8] Prescriptions as of 03/04/2018 Sig: DICYCLOMINE 10 MG CAPSULE TAKE 2 CAPSULES 3 TIMES A DAY* ONDANSETRON 4 MG DISINTEGRATI* Take by mouth. TAKE 1 TABLET * TOPIRAMATE XR 100 MG CAPSULE,* Take 100 mg at bedtime daily. PROBIOTIC DIGESTIVE CARE ORAL Take by mouth. SUMATRIPTAN 100 MG TABLET Take 1 tab at migraine onset.* SUMATRIPTAN 85 MG-NAPROXEN 50* Take 1 tab at migraine onset.* ZEMBRACE SYMTOUCH 3 MG/0.5 ML* 1 injection at migraine onset* DICLOFENAC 1 % TOPICAL GEL Apply 2 g to affected area fo* VITAMIN D-3 ORAL Take by mouth once daily. RIBOFLAVIN (VITAMIN B2) 100 M* Take 100 mg by mouth four janet* MAGNESIUM OXIDE 400 MG (241.3* Take one(1) tablet daily. Problem List As Of Date 03/04/2018 Noted Resolved ACUTE PHARYNGITIS [J02.9] INVALID FOR* MIGRAINE CLASSICAL [G43.109] INVALID FOR* URINARY FREQUENCY [R35.0] INVALID FOR* CERVICALGIA [M54.2] INVALID FOR* S/P endometrial ablation [Z98.890] INVALID FOR* History of meningioma [Z86.018] More... Paresthesia [R20.2] INVALID FOR* Intractable chronic migraine without aura [G43.*INVALID FOR* Medication overuse headache [G44.40] INVALID FOR*12/23/2015 Vitamin D deficiency [E55.9] INVALID FOR* Visit Notes: >> Eligio Hartley LPN natalya Mar 05, 2018 9:32 AM Status: Signed REVIEW OF SYSTEMS: General: The patient denies fatigue, denies weight loss, denies weight gain, denies feeling hot, and denies feelings of cold. Eyes: The patient denies glaucoma, denies eye injury/surgery, does not wear glasses or contacts. Ear/Nose/Throat: The patient denies allergies, denies hayfever, denies ear infections, and denies bloody noses. Cardiovascular: The patient denies chest pain, denies heart disease, denies high blood pressure,denies cardiac stent, denies prior heart attack, denies irregular heart beat, denies high cholesterol, denies poor circulation, denies heart failure, NOTRES cardiac issues (PFO), denies claudication, denies cold feet, denies peripheral arterial stent. Respiratory: The patient denies tuberculosis, denies pneumonia, denies frequent cough, denies pulmonary embolism, denies shortness of breath, and denies coughing up blood. Gastrointestinal: The patient denies difficulty swallowing, denies acid reflux, denies ulcers, denies vomiting, denies jaundice/hepatitis, denies gallbladder problems, denies black or tarry stools, denies hemorrhoids, denies bleeding from rectum, NOTES diverticulitis, denies constipation, denies diarrhea, denies loss of stool control, and denies hernias. Kidney/Bladder: The patient denies kidney stones, denies urine infections, and denies bloody urine. Skin: The patient denies a history of skin cancer, denies bleeding/changing moles, and denies a history of skin rash. Neurologic: The patient denies a history of epilepsy/convulsions, NOTES headaches, denies head/spinal injuries, and denies stroke/TIA. Psychiatric: The patient denies psychiatric medications, denies depression, and denies voices, denies substance abuse. Endocrine: The patient denies thyroid disorders, denies diabetes, and denies hormonal problems. Hematologic: The patient denies a history of bruising, denies bleeding, and denies anemia, denies blood clots. Infections: The patient denies a history of measles and mumps, denies rheumatic fever, and denies sexually transmitted diseases. Musculoskeletal: The patient denies back pain/injury, denies back problems, denies sciatica, denies knee/foot trouble, denies arthritis, or denies gout. When was patient's last Mammogram screening? 2017 Last Colonoscopy: 01/24/18 Eligio Hartley LPN Medications Discontinued During This Encounter naproxen (NAPROSYN) 500 mg tablet 60 t* 1 06/28/2017 03/04/2018 Route: ORAL Sig: Take 1 tablet by mouth twice daily as needed. Take with food. Disc: Course of therapy completed Follow-up and Disposition History Recorded Encounter Status:Closed by ROSY GRANADOS PA-C on 03/05/18 12 LEAD ELECTROCARDIOGRAM Observed: 02/27/2018 Status: F Source: [place] 11:43 AM [facility] REPOSITORY [facility] Cardiovascular Services [address] [place] [address] 12 Lead EKG 02/26/18 0909 MR#: [id number] Acct: [id number] Name: AMERICO JACK Rep #: [id number] : 1965 53 From: Farooq Navarro MD Attending Dr: Status: DEP ER Ordering Dr: Shayy Sales MD Date: 02/26/18 Location: ED Sex: F C Admitted: Test Reason : PALPS Blood Pressure : / mmHG Vent. Rate : 083 BPM Atrial Rate : 083 BPM P-R Int : 158 ms QRS Dur : 084 ms QT Int : 428 ms P-R-T Axes : 059 063 055 degrees QTc Int : 502 ms Sinus rhythm with Fusion complexes Prolonged QT Abnormal ECG Confirmed by FAROOQ NAVARRO MD ([id number]), design editor BEBETO BANKS ([id number]) on 02/27/2018 11:43:05 AM Referred By: NOE/FANY Confirmed By:FAROOQ NAVARRO MD 02/27/18 1143 Date Farooq Navarro MD CC: Shayy Sales MD; Abbe Malave DO Signed EMERGENCY DEPARTMENT Observed: 02/26/2018 Status: F Source: [place] SUMMARY 2:45 PM [facility] REPOSITORY [facility] Medical Records Department [address] [place] [address] Emergency Department Summary 02/26/18 0835 MR#: [id number] Acct: [id number] Name: AMERICO JACK Rep #: [id number] : 1965 53 From: Shayy Sales MD PCP: Abbe Malave DO Status: DEP ER - ER Visit Summary Date of Service: 02/26/18 Chief Complaint: Abdominal pain History of Present Illness: The patient is a 53 F presenting with abdominal pain. States it started around 4 AM. She has pain in the epigastric and right upper quadrant. She has nausea with no vomiting. She denies fever. She has had a decreased appetite. Denies history of similar complaints. Physical Examination: Vitals are stable. Patient is afebrile. Alert no acute distress. HEENT exam is unremarkable. Neck is supple. Lungs are clear and equal bilaterally. Heart is regular rate and rhythm. Abdomen is soft RUQ and epigastric tenderness, no rebound or guarding. Extremities are unremarkable. Skin is warm and dry. Remainder of exam is unremarkable. Emergency Department Course and Treatment: Patient given IV fluids, morphine, Zofran. CBC, chemistries unremarkable. Total bili 1.0, lipase 147. Troponin is negative. Delta troponin is negative. EKG is sinus rate of 83 with no acute ischemic changes. Ultrasound of the gallbladder shows small amount of gallbladder sludge without significant wall thickening or pericholecystic fluid. Small anechoic liver cyst. Patient is resting comfortably on repeat evaluation. She is given a prescription for Bentyl and Zofran. She is advised to follow-up with her primary care physician and Dr. Zhang as an outpatient. Advised return to ED for worsening complaints. Disposition: Discharge home Impression: Abdominal pain This note was generated with BeMyGuest dictation software. It may contain incorrect words, spelling, and punctuation that were not noted in review of the chart prior to signing ED Disposition - Plan for ED Patient: Chief Complaint: Abd Pain Instructions: ED Abdominal Pain Unkn Cause Prescriptions: Ondansetron [Zofran Odt] 4 mg PO Q8H PRN PRN #10 tablet PRN Reason: Nausea Dicyclomine HCl [Bentyl] 20 mg PO TIDAC #20 capsule Referrals: Abbe Cabezas DO [Primary Care Provider] - Phyllis Zhang MD [STAFF PHYSICIAN] - What to do if you have Problems For any increased pain, shortness of breath, bleeding, nausea or vomiting, chest pain, or any unexpected problems, contact your Primary Care Provider. Call [facility] ([phone]) or report to the closest Emergency Room. Call 911 if necessary. 02/26/18 1445 <Electronically signed by Shayy Sales MD> Date Shayy Sales MD Cosigner Signature (If Indicated): Date CC: Abbe Malave DO DISCHARGE INSTRUCTION Observed: 02/26/2018 Status: F Source: ERMA 12:38 PM [facility] REPOSITORY [facility] Medical Records Department [address] [place] [address] Discharge Instruction 02/26/18 1236 MR#: [id number] Acct: [id number] Name: AMERICO JACK Rep #: [id number] : 1965 53 From: Shayy Sales MD PCP: Abbe Malave DO Status: REG ER ED Disposition - Plan for ED Patient: Chief Complaint: Abd Pain Instructions: ED Abdominal Pain Unkn Cause Prescriptions: Ondansetron [Zofran Odt] 4 mg PO Q8H PRN PRN #10 tablet PRN Reason: Nausea RX: Dicyclomine HCl [Bentyl] 20 mg PO TIDAC #20 capsule Referrals: Abbe Cabezas DO [Primary Care Provider] - Phyllis Zhang MD [STAFF PHYSICIAN] - What to do if you have Problems For any increased pain, shortness of breath, bleeding, nausea or vomiting, chest pain, or any unexpected problems, contact your Primary Care Provider. Call [facility] ([phone]) or report to the closest Emergency Room. Call 911 if necessary. 02/26/18 1238 <Electronically signed by Shayy Sales MD> Date Shayy Sales MD Cosigner Signature (If Indicated): Date CC: Abbe Malave DO TROPONIN-I Collected: 02/26/2018 Status: F Source: ERMA 12:05 PM [facility] REPOSITORY Order Comment: 'TROP' Serial specimen #1, #2 or #3: 2 TYPE CODE TESTS RESULT OUT OF RANGE REFERENCE UNITS LAB [id number] <0.045 ng/mL Normal < 0.015 TROPONIN-I Result Comment: TROPONIN-I EXPECTED VALUES <0.045 Negative 0.045 - 0.590 Consistent with Cardiac Damage > OR = 0.600 Critical Value Not every elevated troponin is indicative of ID. These values should be used with clinical judgement in examining the patient's clinical picture for diagnosis. To establish a diagnosis of ID versus myocardial injury, there must be a demonstrated rise and/or fall in the troponin values, in addition to ischemic symptoms, EKG changes, new regional wall motion abnormality, and/or angiographical evidence. PLEASE NOTE: REFERENCE RANGES EDITED 17 Performed By: #### L501.4010 #### [facility] [address] [place], [place], [id number] CBC W/DIFF, AUTOMATED Collected: 02/26/2018 Status: F Source: [place] 8:55 AM [facility] REPOSITORY TYPE CODE TESTS RESULT OUT OF RANGE REFERENCE UNITS LAB L100.1000 4.4-11.0 K/mm3 Normal WBC 4.9 LAB L100.1200 4.2-5.4 M/mm3 Normal RBC 4.38 LAB L100.1300 12.0-15.0 g/dl Normal HGB 13.3 LAB L100.1400 37-47 % Normal HCT 40.1 LAB L100.1500 81-99 fL Normal MCV 91.6 LAB L100.1600 27.0-32.0 pg Normal MCH 30.4 LAB L100.1700 32-36 g/gl Normal MCHC 33.2 LAB L100.1810 11.6-14.6 % Normal RDW CV 12.4 LAB L100.1820 35.1-43.9 fl Normal RDW SD 41.4 LAB L100.1900 150-450 K/mm3 Normal PLT 217 LAB L100.2000 6.2-12.0 fl Normal MPV 9.1 LAB L100.2100 47-70 % High NEUT% 72.0 LAB L100.2200 19-41 % Normal LY% 19.7 LAB L100.2300 0-10 % Normal MONO% 6.9 LAB L100.2400 0-5 % Normal EO% 1.0 LAB L100.2500 0-1 % Normal BASO% 0.2 LAB L100.2550 0.0-0.9 % Normal IM GRAN % 0.200 Result Comment: IG% - Immature Granulocytes (promyelocytes, myelocytes and metamyelocytes) > 1% indicates that a LEFT SHIFT is Present. LAB L100.2620 2.0-7.7 X10 3/uL Normal Absolute Neut 3.5 LAB L100.2720 0.83-4.51 X10 3/ul Normal Absolute Lymph 0.97 Performed By: #### L100.0100 #### [facility] [address] [place], [address] BASIC METABOLIC Collected: 02/26/2018 Status: F Source: [place] PROFILE (BMP) 8:55 AM [facility] REPOSITORY TYPE CODE TESTS RESULT OUT OF RANGE REFERENCE UNITS LAB L501.0100 74-106 mg/dL Normal GLU 100 Result Comment: Fasting Glucose result from 100 to 125 mg/dL suggests IMPAIRED HOMEOSTASIS per A.D.A. criteria. Please note revised GLUCOSE reference range effective 2017. LAB L501.1000 7-18 mg/dL Normal BUN 12 LAB L501.1100 0.55-1.02 mg/dL Normal CREAT,SERUM 0.80 Result Comment: The validity of the calculated GFR AND GFRAA in patients over 70 years has not been determined. Clinical correlation is essential. LAB L501.1110 >60 mL/min Normal EST GFR 81 Result Comment: Non- GFR Calc LAB L501.1115 >60 mL/min Normal EST GFR - AA 97 Result Comment: GFR Calc LAB L501.1255 ml/min Normal Estimated CRCL 88.95 LAB L501.1300 10-20 RATIO Normal BUN/CRE 15.1 LAB L501.2200 8.5-10 mg/dL Normal .1 CA 8.8 LAB L501.5300 136-14 mmol/L Normal 5 NA 143 LAB L501.5600 3.5-5. mmol/L Normal 1 K 3.9 LAB L501.5900 98-107 mmol/L High CL 112 LAB L501.6100 21.0-3 mmol/L Normal 2.0 CO2 24.0 LAB L501.6200 5-15 Normal GAP 7 Performed By: #### L500.2500, L500.3400, L501.2450 #### [facility] [address] [place], [place], [address] LIVER PROFILE Collected: 02/26/2018 Status: F Source: [place] 8:55 AM [facility] REPOSITORY TYPE CODE TESTS RESULT OUT OF RANGE REFERENCE UNITS LAB L501.1500 6.4-8.2 g/dL Normal T PROT 6.7 LAB L501.1800 3.2-5.0 g/dL Normal ALB 3.9 LAB L501.1950 2.2-4.2 g/dL Normal GLOB 2.8 LAB L501.4100 15-37 U/L Normal AST 16 LAB L501.4305 45-117 U/L Normal ALK P 69 LAB L501.4405 13-56 U/L Normal ALT 27 LAB L501.4600 0.20-1.00 mg/dL High T BILI 1.10 LAB L501.4700 0.00-0.30 mg/dL Normal D BILI 0.25 Performed By: #### L500.2500, L500.3400, L501.2450 #### [facility] [address] [place], [address] LIPASE Collected: 02/26/2018 Status: F Source: [place] 8:55 AM [facility] REPOSITORY TYPE CODE TESTS RESULT OUT OF RANGE REFERENCE UNITS LAB L501.2450 73-393 U/L Normal LIPASE 147 Performed By: #### L500.2500, L500.3400, L501.2450 #### [facility] [address] [facility] [place], [address] TROPONIN-I Collected: 02/26/2018 Status: F Source: [place] 8:55 AM [facility] REPOSITORY TYPE CODE TESTS RESULT OUT OF RANGE REFERENCE UNITS LAB L501.4010 <0.045 ng/mL Normal < 0.015 TROPONIN-I Result Comment: TROPONIN-I EXPECTED VALUES <0.045 Negative 0.045 - 0.590 Consistent with Cardiac Damage > OR = 0.600 Critical Value Not every elevated troponin is indicative of ID. These values should be used with clinical judgement in examining the patient's clinical picture for diagnosis. To establish a diagnosis of ID versus myocardial injury, there must be a demonstrated rise and/or fall in the troponin values, in addition to ischemic symptoms, EKG changes, new regional wall motion abnormality, and/or angiographical evidence. PLEASE NOTE: REFERENCE RANGES EDITED 17 Performed By: #### L501.4010 #### [facility] [address] [place], [address] GALLBLADDER Observed: 02/26/2018 Status: F Source: [place] 8:35 AM [facility] REPOSITORY [facility] Imaging Services [address] [place] [address] Gallbladder MR#: [id number] Acct: [id number] Name: AMERICO JACK Rep #: [id number] : 1965 F 53 From: Mauricio Archibald DO PCP: Abbe Malave DO Status: REG ER Study: Gallbladder Date of Exam: 02/26/18 Exam# [id number] Ordering Dr: Shayy Sales MD STUDY: ABDOMINAL ULTRASOUND - RIGHT UPPER QUADRANT REASON FOR VISIT: Female, 53 years old. Epigastric pain and chest pain TECHNIQUE: Ultrasound evaluation of the right upper quadrant was performed with real-time and static coyle-scale imaging. TECHNICAL QUALITY: Adequate. COMPARISON: None. FINDINGS: Liver: The liver measures 16.4 cm. There is normal echogenicity of the liver. The bile ducts are within normal limits. There is hepatic color flow. The direction of portal flow is hepatopetal. Small liver cyst measuring 0.9 x 1.2 x 1.7 cm. Gallbladder: Normal distended gallbladder. The gallbladder wall measures 2.8 mm. There is a negative sonographic Minor's sign. There is no pericholecystic fluid. There is biliary sludge dependent within the gallbladder. Common Bile Duct (C.B.D.): The common bile duct measures 5 mm. Pancreas: Normal size of the head, body and tail of the pancreas. There is normal echogenicity of the pancreas. There is no demonstrated pancreatic mass or cyst. Right Kidney: Normal size of the right kidney. The right kidney measures 10 cm. Normal renal cortex. The right cortex measures 1.7 cm. There is no demonstrated renal mass or cyst. There is no right hydronephrosis. US/Gallbladder IMPRESSION: Small amount of gallbladder sludge without significant wall thickening or pericholecystic fluid. Small anechoic liver cyst. Electronically Signed: Mauricio Archibald DO at 10:31 EDT Tel , Service support , CC: Shayy Sales MD; Abbe Malave DO Entry Table Operator: Signed NURSING PROG Observed: 01/24/2018 Status: COMPLETED Source: [place] 9:35 AM [facility] REPOSITORY HNO ID: [id number] Author: Tracy StephensRn) GUSTAVO Monsivais Service: Nursing Author Type: Registered Nurse Type: Nursing Progress Note Filed: 01/24/2018 9:38 AM Note Text: Patient did not experience a fall prior to discharge. Patient did not experience a burn prior to discharge. Tracy Monsivais RN NURSING PROG Observed: 01/24/2018 Status: COMPLETED Source: [place] 9:30 AM [facility] REPOSITORY HNO ID: [id number] Author: Tracy StephensRn) GUSTAVO Monsivais Service: Nursing Author Type: Registered Nurse Type: Nursing Progress Note Filed: 01/24/2018 9:30 AM Note Text: Home with spouse, all questions answered, no complaints, all safety maintained. PT ED Observed: 01/24/2018 Status: COMPLETED Source: [place] 8:36 AM [facility] REPOSITORY HNO ID: [id number] Author: Tracy StephensRn) GUSTAVO Monsivais Service: Nursing Author Type: Registered Nurse Type: Patient Education Filed: 01/24/2018 8:36 AM Note Text: POST OP LEARNING RESPONSE INSTRUCTION PROVIDED TO: Patient and family member METHOD OF INSTRUCTION: Individual instruction Written instruction - handouts Verbal instruction PATIENT / FAMILY RESPONSE: Information received as demonstrated by interest and questions FOLLOW-UP PLAN: Patient instructed to call with any further issues SUPPLEMENTAL MATERIAL: None REFERRAL (RECOMMENDATION): None Electronically Signed By: Tracy Monsivais RN In Department: AMBULATORY SURGERY NURSING PROG Observed: 01/24/2018 Status: COMPLETED Source: [place] 8:33 AM [facility] REPOSITORY HNO ID: [id number] Author: Tracy Perez) GUSTAVO Monsivais Service: Nursing Author Type: Registered Nurse Type: Nursing Progress Note Filed: 01/24/2018 8:33 AM Note Text: Spouse to her side, awakening, tolerating snack, waiting to talk to Dr Casarez. No complaints, all safety maintained. NURSING PROG Observed: 01/24/2018 Status: COMPLETED Source: [place] 8:23 AM [facility] REPOSITORY HNO ID: [id number] Author: Tracy StephensRnYeny Monsivais RN Service: Nursing Author Type: Registered Nurse Type: Nursing Progress Note Filed: 01/24/2018 8:23 AM Note Text: Pt into Endo recovery room in satisfactory condition. Resting on left side. Pt. sleepy but arousable. Abdomen soft, no complaints, all safety maintained. Will continue to monitor. NURSING PROG Observed: 01/24/2018 Status: COMPLETED Source: [place] 8:12 AM [facility] REPOSITORY HNO ID: [id number] Author: Cindy StephensRnYeny Vogt RN Service: Nursing Author Type: Registered Nurse Type: Nursing Progress Note Filed: 01/24/2018 8:12 AM Note Text: Patient did not experience a fall within the Intraoperative area. Patient did not experience a burn within the Intraoperative area. Cindy Vogt RN NURSING PROG Observed: 01/24/2018 Status: COMPLETED Source: [place] 7:32 AM [facility] REPOSITORY HNO ID: [id number] Author: Aimee Hammond RN Service: (none) Author Type: Registered Nurse Type: Nursing Progress Note Filed: 01/24/2018 7:33 AM Note Text: [facility] PRE-OP NURSING HAND OFF NOTE SBAR Hand off given to Cindy Vogt RN. Hand off was communicated verbally and at the patient's bedside and all questions were answered. FALLS/COY Patient did not experience a fall within the Preoperative area. Patient did not experience a burn within the Preoperative area. Aimee Hammond RN PT ED Observed: 01/24/2018 Status: COMPLETED Source: [place] 7:14 AM [facility] REPOSITORY HNO ID: [id number] Author: Aimee Hammond RN Service: (none) Author Type: Registered Nurse Type: Patient Education Filed: 01/24/2018 7:14 AM Note Text: PRE OP LEARNING ASSESSMENT PROCEDURE/SURGERY: GI PROCEDURES: Colonoscopy READINESS TO LEARN COGNITIVE ABILITY: Alert and oriented MOTIVATION TO LEARN: Eager FAMILY SUPPORT: High - Very involved in pt care PATIENT LEARNS BEST BY: Multiple Methods FACTORS AFFECTING LEARNING: None PHYSICAL LIMITATIONS AFFECTING LEARNING: None Electronically Signed By: Aimee Hammond RN In Department: AMBULATORY SURGERY SURGICAL PATHOLOGY Observed: 01/24/2018 Status: F Source: [place] 12:00 AM [facility] [place] REPOSITORY Specimen originated from [facility] Specimen #: [id number] Submitting Physician: DINA CASAREZ MD FINAL DIAGNOSIS Transverse colon polyp, biopsy - Tubular adenoma. JRG/rw 01/28/2018 Tab Damico M.D. (Electronic Signature) SPECIMEN SUBMITTED A: TRANSVERSE COLON POLYP CLINICAL DATA Z12.11 COLD SNARE GROSS DESCRIPTION A. Received in formalin are two pieces of king, soft tissue aggregating to 0.3 x 0.1 x 0.1 cm. Totally submitted in one cassette. Gross examination performed at [facility], [address] [place] [address] 2018 12:09:03 AM Date of Report: 01/28/2018 Date of Procedure: 01/24/2018 Date of Receipt: 01/24/2018 Submitted by: DINA CASAREZ MD Location: [facility] Diagnostic [place] [address]. HISTORY PHYSICAL Observed: 01/23/2018 Status: COMPLETED Source: [place] 8:01 PM [facility] REPOSITORY HNO ID: [id number] Author: Dina Casarez Service: (none) Author Type: Physician Type: HANDP Filed: 01/24/2018 7:34 AM Note Text: Chief Complaint: Here for screening for colon cancer via colonoscopy History of Present Illness: 52 y/o WF presents for screening for colon cancer via colonoscopy Denies any blood in stools. Denies changes in bowel habits. Denies abdominal pain. Denies previous colonoscopy. No colon cancer known in family Denies weight loss. Past Medical History: Migraine headaches Anxiety disorder History of cervical meningioma s/p C5-T1 laminectomy TMJ dysfunction Past Surgical History: Tubes tied Laminectomy C5-T1 '96 Left hand surgery Medications: migranal naproxyn treximet frova trokendi XR imitrex vitamins Allergies: No known drug allergies Review of Systems: General - denies fevers, denies anorexia Cardiovascular ? denies chest pain Pulmonary ? denies shortness of breath, denies coughing up blood Gastrointestinal ? denies abdominal pain, denies blood in stools Neurological ? has chronic headaches, history of meningioma Genitourinary ? denies blood in urine, denies burning with urination Hematological ? denies spontaneous/prolonged bleeding Skin ? denies nonhealing skin wounds Musculoskeletal ? denies history of fractures Endocrine ? denies diabetes Psychological ? denies hallucinations Physical examination: Vital signs in chart, reviewed and noted by me - Wt: 169# General ? WD/WN WF in no apparent distress, alert and oriented Head ? Normocephalic. EOM intact with sclera clear. Mouth with mucus membranes moist. Neck - supple with no jugular venous distention noted. Trachea is midline. Lungs ? clear to auscultation. Normal breath sounds. No rales/rhonchi/wheezing noted. Heart ? normal S1 and S2 auscultated. No rubs/clicks/murmurs noted. Regular rate. Abdomen ? soft and benign. Normal bowel sounds Extremities ? no calf tenderness noted. No pitting edema noted. Skin ? Normal skin integrity. Neurological ? non focal Psych ? calm and appropriate Impression: screening for colon cancer via colonoscopy Discussion/Plan/Recommendations: I have discussed the above with the patient. I have offered colonoscopy I have explained the procedure to the patient. I have counseled the patient as to the risks of the procedure, including but not limited to: infection, bleeding, injury to any intrabdominal organs such as liver/spleen, perforation of the GI tract, inability to complete the procedure, complications of anesthesia, etc. ? the patient understands. The patient wishes to proceed. I have answered all questions to the patient?s satisfaction and the patient has no further questions. HOSP Observed: 01/04/2018 Status: COMPLETED Source: [place] 12:00 AM [facility] REPOSITORY Patient:Americo Jack MRN: <[id number]> Height:5' 10(1.778 m) Weight:No patient weight recorded within the last 30 days. Outpatient Medications as of 01/24/18: B infantis/B ani/B marilu/B bifid (PROBIOTIC DIGESTIVE CARE ORAL) topiramate (TROKENDI XR) 100 mg cp24 SUMAtriptan (IMITREX) 100 mg tablet SUMAtriptan-Naproxen (TREXIMET) 85-500 mg per tablet ZEMBRACE SYMTOUCH 3 mg/0.5 mL pnij naproxen (NAPROSYN) 500 mg tablet diclofenac sodium (VOLTAREN) 1 % topical gel CALCIUM CARBONATE/VITAMIN D3 (VITAMIN D-3 ORAL) riboflavin, vitamin B2, (VITAMIN B-2) 100 mg tab magnesium oxide 400 mg ORAL tablet Admission/Clinic Administered Medications as of 01/24/18: lactated ringers infusion Problem List: Acute pharyngitis [J02.9] MIGRAINE CLASSICAL [G43.109] Urinary frequency [R35.0] Cervicalgia [M54.2] S/P endometrial ablation [Z98.890] History of meningioma [Z86.018] Paresthesia [R20.2] Intractable chronic migraine without aura [G43.719] Vitamin D deficiency [E55.9] Allergies: No Known Allergies Date Verified:01/24/18 Lab Values No results within the last 30 days for the following basenames: K,HCT Progress Notes ([facility] [place]): Ciera Gates Psr 12/28/2017 4:49 PM Signed Pt requesting a refill on her Trokendi, 100 mg prescription. Pt states the prescription should go to [facility] pharmacy store in [place]; the one on file not the mail order pharmacy. Please advise. Silvestre Genao MD 12/31/2017 10:47 AM Signed Refill processed as requested. Silvestre Genao MD December 31, 2017 10:47 AM Progress Notes ([facility]): Sallie Piña RN 12/28/2017 10:42 AM Signed Needs to use mail order per pharmacy. Discount card is no longer working, per patient. She said was told that it will now cost her $800 Patient phoned to request the following prescription(s) Pending Prescriptions Disp Refills TOPIRAMATE XR 100 MG CAPSULE,EXTENDED RELEASE 24 HR 90 capsule 3 Sig: Take 100 mg at bedtime daily. TITA: No Patient aware RX escripted to mail away pharmacy. No need to notify patient. Please review. Sallie Pñia RN CNPN Observed: 11/25/2017 Status: COMPLETED Source: [place] 12:00 AM [facility] REPOSITORY Telephone ([facility]) AMERICO JACK ([id number]) 1965 F Date Time Provider Department 11/25/17 EMEKA MILLER (RES) [facility] During your visit today, we recorded the following information about you: Emeka Miller (Res) 11/25/2017 8:37 AM Signed NOC regarding headache in setting of multiple triggers including visiting a horse show. Patient's headache intensity has improved, currently 5/10, was more severe before. Patient does have some nasal congestion. Took Treximet and Sunday Took Imitrex Sunday and Sunday Discussed with nurse that patient should not take any more triptans at this time Advised supportive care, rest and quiet in a darkened room Sent e-prescription for flonase to patient's pharmacy for nasal congestion Suggested patient call Dr. Danielle's office with update in 2- 3 days Emeka Miller MD PGY-2 Pager [phone] Estrada Danielle 11/26/2017 10:57 AM Signed I sent a 3 day decadron course if headache is still ongoing. The following approved medication requests have been transmitted electronically. Signed Prescriptions Disp Refills dexamethasone (DECADRON) 4 mg tablet 6 tablet 0 Sig: FOR PERSISTENT HEADACHE: Take 1 tab TID on day 1, then BID on day 2, then ONCE on day 3. Take with food. Authorizing Provider: ESTRADA DANIELLE DO Baron, Eric P 11/26/2017 10:57 AM Signed Addended by: ESTRADA DANIELLE DO on: 11/26/2017 10:57 AM Modules accepted: Orders Allergies As of Date: 11/25/2017 (No Known Allergies) Date Reviewed: 11/25/2017 Reviewed by: Sayda Castano (Rn), RN - Fully Assessed Reason for Visit: Headache [52] Order(s):dexamethasone (DECADRON) 4 mg tabletFOR PERSISTENT HEADACHE: Take 1 tab TID on day 1, then BID on day 2, then ONCE on day 3. Take with food.Disp: 6 tabletRfl: 0 Prescriptions as of 11/25/2017 Sig: DEXAMETHASONE 4 MG TABLET FOR PERSISTENT HEADACHE: Take* FLUTICASONE 50 MCG/ACTUATION * Use 1 Daniels in each nostril d* PREDNISONE 10 MG TABLET 6 tabs (60mg) daily for 5 day* TOPIRAMATE XR 100 MG CAPSULE,* Take 100 mg at bedtime daily. SUMATRIPTAN 100 MG TABLET Take 1 tab at migraine onset.* SUMATRIPTAN 85 MG-NAPROXEN 50* Take 1 tab at migraine onset.* ZEMBRACE SYMTOUCH 3 MG/0.5 ML* 1 injection at migraine onset* NAPROXEN 500 MG TABLET Take 1 tablet by mouth twice * DICLOFENAC 1 % TOPICAL GEL Apply 2 g to affected area fo* VITAMIN D-3 ORAL Take by mouth once daily. RIBOFLAVIN (VITAMIN B2) 100 M* Take 100 mg by mouth four janet* MAGNESIUM OXIDE 400 MG TABLET Take one(1) tablet daily. Problem List As Of Date 11/25/2017 Noted Resolved ACUTE PHARYNGITIS [J02.9] INVALID FOR* MIGRAINE CLASSICAL [G43.109] INVALID FOR* URINARY FREQUENCY [R35.0] INVALID FOR* CERVICALGIA [M54.2] INVALID FOR* S/P endometrial ablation [Z98.890] INVALID FOR* History of meningioma [Z86.018] More... Paresthesia [R20.2] INVALID FOR* Intractable chronic migraine without aura [G43.*INVALID FOR* Medication overuse headache [G44.40] INVALID FOR*12/23/2015 Vitamin D deficiency [E55.9] INVALID FOR* Prescriptions ordered this encounter Disp Refills Start End DEXAMETHASONE 4 MG TABLET 6 ta* 0 11/26/2017 Sig: FOR PERSISTENT HEADACHE: Take 1 tab TID on day 1, then BID on day 2, then ONCE on day 3. Take with food. Encounter Status:Closed by EMEKA MILLER on 11/25/17 CNPN Observed: 10/31/2017 Status: COMPLETED Source: [place] 12:00 AM [facility] REPOSITORY Telephone (NEURBR) GUEROAMERICO ([id number]) 1965 F Date Time Provider Department 10/31/17 ESTRADA DANIELLE During your visit today, we recorded the following information about you: Cindy Lee RN 10/31/2017 8:35 PM Signed Pt. calling states she has had a terrible headache for over two weeks States she can not think and at times it is bad she feels like vomiting Asking can she come in and have Botox? States she has been playing with her meds (Dr. Danielle knows) and now is is incapacitated There is a appt. on Sunday's [employer] schedule? Please advise thank you Cindy Lee RN 11/01/2017 12:49 PM Signed Pt. called her Insurance and needs a prior Auth for Botox Pt. will not be able to receive Botox Please review and assist what to do next Thank you Cindy Lee RN 11/01/2017 1:02 PM Signed Pt. calling back asking Prior Auth can be worked on so she can be schedule on 11/29/17 @ 11:30 Were is the above request to be sent Please assist thank you Estrada Danielle, 11/01/2017 2:00 PM Signed I'll have our prior auth team look into the Botox. From what is in [facility], she is approved through Mar 2018, so maybe she had an insurance change. If not approved, we'll send a new request in and have her come back in when approved. In the interim, I sent a 10 day course of Prednisone to try to break up the current cycle. The following approved medication requests have been transmitted electronically. Signed Prescriptions Disp Refills predniSONE (DELTASONE) 10 mg tablet 45 tablet 0 Si tabs (60mg) daily for 5 days. Then decrease by 1 tab daily until off. Authorizing Provider: ESTRADA DANIELLE DO Eric P Baron, DO 11/01/2017 2:00 PM Signed Addended by: ESTRADA DANIELLE DO on: 11/01/2017 02:00 PM Modules accepted: Orders YNES PARRISH RN, RN 11/01/2017 3:22 PM Signed Notified patient of message below. Patient has not changed insurance. I told patient that she is approved for Botox un 04/02, so she can call to schedule. Patient verbalizes understanding. YNES PARRISH RN Allergies As of Date: 10/31/2017 (No Known Allergies) Date Reviewed: 10/30/2017 Reviewed by: Silvia Castano Ma - Fully Assessed Reason for Visit: Constant headache [Other] Order(s):predniSONE (DELTASONE) 10 mg tablet6 tabs (60mg) daily for 5 days. Then decrease by 1 tab daily until off.Disp: 45 tabletRfl: 0 Prescriptions as of 10/31/2017 Sig: PREDNISONE 10 MG TABLET 6 tabs (60mg) daily for 5 day* TOPIRAMATE XR 100 MG CAPSULE,* Take 100 mg at bedtime daily. SUMATRIPTAN 100 MG TABLET Take 1 tab at migraine onset.* SUMATRIPTAN 85 MG-NAPROXEN 50* Take 1 tab at migraine onset.* ZEMBRACE SYMTOUCH 3 MG/0.5 ML* 1 injection at migraine onset* NAPROXEN 500 MG TABLET Take 1 tablet by mouth twice * DICLOFENAC 1 % TOPICAL GEL Apply 2 g to affected area fo* VITAMIN D-3 ORAL Take by mouth once daily. RIBOFLAVIN (VITAMIN B2) 100 M* Take 100 mg by mouth four janet* MAGNESIUM OXIDE 400 MG TABLET Take one(1) tablet daily. Problem List As Of Date 10/31/2017 Noted Resolved ACUTE PHARYNGITIS [J02.9] INVALID FOR* MIGRAINE CLASSICAL [G43.109] INVALID FOR* URINARY FREQUENCY [R35.0] INVALID FOR* CERVICALGIA [M54.2] INVALID FOR* S/P endometrial ablation [Z98.890] INVALID FOR* History of meningioma [Z86.018] More... Paresthesia [R20.2] INVALID FOR* Intractable chronic migraine without aura [G43.*INVALID FOR* Medication overuse headache [G44.40] INVALID FOR*12/23/2015 Vitamin D deficiency [E55.9] INVALID FOR* Prescriptions ordered this encounter Disp Refills Start End PREDNISONE 10 MG TABLET 45 t* 0 11/01/2017 Si tabs (60mg) daily for 5 days. Then decrease by 1 tab daily until off. Encounter Status:Closed by CINDY LEE RN on 11/01/17 PROGRESS Observed: 10/30/2017 Status: COMPLETED Source: [place] 7:06 AM [facility] [place] REPOSITORY HNO ID: [id number] Author: Vanessa Cerda) Elias Service: (none) Author Type: Physician Gis Mapping Technician Type: Progress Notes Filed: 10/30/2017 7:35 AM Note Text: Subjective HPI Pt presents with right ear pain x 3 days. No cough, she does have some maxillary sinus pressure. No fever or chills. She does have difficulty hearing out of the ear. She is having some ringing as well. Review of Systems Constitutional: Negative. HENT: Positive for congestion and ear pain. Eyes: Negative. Respiratory: Negative. Cardiovascular: Negative. Gastrointestinal: Negative. Genitourinary: Negative. Musculoskeletal: Negative. Skin: Negative. All other systems reviewed and are negative. PAST MEDICAL HISTORY Diagnosis Date - Anxiety state, unspecified - Cervicalgia - Constipation - History of meningioma 1995 Cervical spine - Irritable bowel syndrome - Migraine without aura, without mention of intractable migraine without mention of status migrainosus - Unspecified viral meningitis 2002 Current Outpatient Prescriptions: topiramate (TROKENDI XR) 100 mg cp24 Take 100 mg at bedtime daily. Disp: 90 capsule Rfl: 3 SUMAtriptan (IMITREX) 100 mg tablet Take 1 tab at migraine onset. May repeat once in 2 hours if needed. Give max allowed per insurance. Disp: 27 tablet Rfl: 3 SUMAtriptan-Naproxen (TREXIMET) 85-500 mg per tablet Take 1 tab at migraine onset. May repeat once in 2 hours if needed. Give max allowed per insurance. Disp: 27 tablet Rfl: 3 ZEMBRACE SYMTOUCH 3 mg/0.5 mL pnij 1 injection at migraine onset. May repeat once in 2 hours if needed. Disp: 6 Units Rfl: 11 naproxen (NAPROSYN) 500 mg tablet Take 1 tablet by mouth twice daily as needed. Take with food. Disp: 60 tablet Rfl: 1 diclofenac sodium (VOLTAREN) 1 % topical gel Apply 2 g to affected area four times daily. Disp: 1 Tube Rfl: 3 CALCIUM CARBONATE/VITAMIN D3 (VITAMIN D-3 ORAL) Take by mouth once daily. Disp: Rfl: riboflavin, vitamin B2, (VITAMIN B-2) 100 mg tab Take 100 mg by mouth four times daily. Disp: Rfl: magnesium oxide 400 mg ORAL tablet Take one(1) tablet daily. Disp: Rfl: 0 No current facility-administered medications for this visit. PAST SURGICAL HISTORY Procedure Laterality Date - LIGATE FALLOPIAN TUBE 02/18 Tubal ligation and Novasure ablation - PAST SURGICAL HISTORY OF 1995 tumor off spinal cord- meningioma C7- [facility] Dr. Braun - PAST SURGICAL HISTORY OF left hand surgery- fracture 5th digit FAMILY HISTORY Problem Relation Age of Onset - Hypertension Mother - Headache Mother - Heart Father CHF- age 81 - Diabetes Father - Prostate Cancer Father - Multiple Sclerosis Sister - PFO [Other] [OTHER] Son with subsequent stroke Social History Substance Use Topics - Smoking status: Never Smoker - Smokeless tobacco: Never Used - Alcohol use Yes Comment: Rarely BP 122/72 Pulse 78 Temp 36.4 ?C (97.6 ?F) (Tympanic) Resp 16 Wt 75.8 kg (167 lb) BMI 23.96 kg/m2 Objective Physical Exam Constitutional: She is oriented to person, place, and time and well-developed, well-nourished, and in no distress. HENT: Head: Normocephalic and atraumatic. Right Ear: Tympanic membrane normal. Left Ear: Tympanic membrane, external ear and ear canal normal. Nose: Nose normal. Mouth/Throat: Oropharynx is clear and moist. Right cerumen impaction. After cerumen cleared with irrigation, normal TM and EAC. Eyes: Conjunctivae are normal. Neck: Normal range of motion. Neck supple. Cardiovascular: Normal rate, regular rhythm and normal heart sounds. Pulmonary/Chest: Effort normal and breath sounds normal. Neurological: She is alert and oriented to person, place, and time. Skin: Skin is warm and dry. No rash noted. Psychiatric: Affect and judgment normal. Nursing note and vitals reviewed. ASSESSMENT/PLAN: 1. Impacted cerumen of right ear - ICD9: 380.4, ICD10: H61.21 Ear was irrigated and cerumen removed. Pt feels much improved after. Instructed on using debrox OTC in the future. Discussed with patient concerning symptoms to go to the emergency department or follow up here. Pt agreeable with this plan. Vanessa Hogan PA-C CNOV Observed: 10/30/2017 Status: COMPLETED Source: [place] 7:00 AM [facility] REPOSITORY Office Visit (WSTR) AMERICO JACK ([id number]) 1965 F Date Time Provider Department 10/30/17 7:00 AM VANESSA HOGAN ([place]) [facility] During your visit today, we recorded the following information about you: Temperature Pulse Respiration Blood pressure 97.6 degrees 78/minute 16/minute 122/72 Weight 75.8 kg Vanessa Hogan PA-C 10/30/2017 7:35 AM Signed Subjective HPI Pt presents with right ear pain x 3 days. No cough, she does have some maxillary sinus pressure. No fever or chills. She does have difficulty hearing out of the ear. She is having some ringing as well. Review of Systems Constitutional: Negative. HENT: Positive for congestion and ear pain. Eyes: Negative. Respiratory: Negative. Cardiovascular: Negative. Gastrointestinal: Negative. Genitourinary: Negative. Musculoskeletal: Negative. Skin: Negative. All other systems reviewed and are negative. PAST MEDICAL HISTORY Diagnosis Date - Anxiety state, unspecified - Cervicalgia - Constipation - History of meningioma 1995 Cervical spine - Irritable bowel syndrome - Migraine without aura, without mention of intractable migraine without mention of status migrainosus - Unspecified viral meningitis 2002 Current Outpatient Prescriptions: topiramate (TROKENDI XR) 100 mg cp24 Take 100 mg at bedtime daily. Disp: 90 capsule Rfl: 3 SUMAtriptan (IMITREX) 100 mg tablet Take 1 tab at migraine onset. May repeat once in 2 hours if needed. Give max allowed per insurance. Disp: 27 tablet Rfl: 3 SUMAtriptan-Naproxen (TREXIMET) 85-500 mg per tablet Take 1 tab at migraine onset. May repeat once in 2 hours if needed. Give max allowed per insurance. Disp: 27 tablet Rfl: 3 ZEMBRACE SYMTOUCH 3 mg/0.5 mL pnij 1 injection at migraine onset. May repeat once in 2 hours if needed. Disp: 6 Units Rfl: 11 naproxen (NAPROSYN) 500 mg tablet Take 1 tablet by mouth twice daily as needed. Take with food. Disp: 60 tablet Rfl: 1 diclofenac sodium (VOLTAREN) 1 % topical gel Apply 2 g to affected area four times daily. Disp: 1 Tube Rfl: 3 CALCIUM CARBONATE/VITAMIN D3 (VITAMIN D-3 ORAL) Take by mouth once daily. Disp: Rfl: riboflavin, vitamin B2, (VITAMIN B-2) 100 mg tab Take 100 mg by mouth four times daily. Disp: Rfl: magnesium oxide 400 mg ORAL tablet Take one(1) tablet daily. Disp: Rfl: 0 No current facility-administered medications for this visit. PAST SURGICAL HISTORY Procedure Laterality Date - LIGATE FALLOPIAN TUBE 02/18 Tubal ligation and Novasure ablation - PAST SURGICAL HISTORY OF 1995 tumor off spinal cord- meningioma C7- [facility] Dr. Braun - PAST SURGICAL HISTORY OF left hand surgery- fracture 5th digit FAMILY HISTORY Problem Relation Age of Onset - Hypertension Mother - Headache Mother - Heart Father CHF- age 81 - Diabetes Father - Prostate Cancer Father - Multiple Sclerosis Sister - PFO [Other] [OTHER] Son with subsequent stroke Social History Substance Use Topics - Smoking status: Never Smoker - Smokeless tobacco: Never Used - Alcohol use Yes Comment: Rarely BP 122/72 Pulse 78 Temp 36.4 ?C (97.6 ?F) (Tympanic) Resp 16 Wt 75.8 kg (167 lb) BMI 23.96 kg/m2 Objective Physical Exam Constitutional: She is oriented to person, place, and time and well-developed, well-nourished, and in no distress. HENT: Head: Normocephalic and atraumatic. Right Ear: Tympanic membrane normal. Left Ear: Tympanic membrane, external ear and ear canal normal. Nose: Nose normal. Mouth/Throat: Oropharynx is clear and moist. Right cerumen impaction. After cerumen cleared with irrigation, normal TM and EAC. Eyes: Conjunctivae are normal. Neck: Normal range of motion. Neck supple. Cardiovascular: Normal rate, regular rhythm and normal heart sounds. Pulmonary/Chest: Effort normal and breath sounds normal. Neurological: She is alert and oriented to person, place, and time. Skin: Skin is warm and dry. No rash noted. Psychiatric: Affect and judgment normal. Nursing note and vitals reviewed. ASSESSMENT/PLAN: 1. Impacted cerumen of right ear - ICD9: 380.4, ICD10: H61.21 Ear was irrigated and cerumen removed. Pt feels much improved after. Instructed on using debrox OTC in the future. Discussed with patient concerning symptoms to go to the emergency department or follow up here. Pt agreeable with this plan. Vanessa Hogan PA-C Referring Provider: SELF [[id number]] Allergies As of Date: 10/30/2017 (No Known Allergies) Date Reviewed: 10/30/2017 Reviewed by: Silvia Castano Ma - Fully Assessed Reason for Visit: Ear Pain [817] Cmt: right ear pain and pressure x 2 days Primary Visit Diagnosis:Impacted cerumen of right ear [H61.21] Prescriptions as of 10/30/2017 Sig: TOPIRAMATE XR 100 MG CAPSULE,* Take 100 mg at bedtime daily. SUMATRIPTAN 100 MG TABLET Take 1 tab at migraine onset.* SUMATRIPTAN 85 MG-NAPROXEN 50* Take 1 tab at migraine onset.* ZEMBRACE SYMTOUCH 3 MG/0.5 ML* 1 injection at migraine onset* NAPROXEN 500 MG TABLET Take 1 tablet by mouth twice * DICLOFENAC 1 % TOPICAL GEL Apply 2 g to affected area fo* VITAMIN D-3 ORAL Take by mouth once daily. RIBOFLAVIN (VITAMIN B2) 100 M* Take 100 mg by mouth four janet* MAGNESIUM OXIDE 400 MG TABLET Take one(1) tablet daily. Problem List As Of Date 10/30/2017 Noted Resolved ACUTE PHARYNGITIS [J02.9] INVALID FOR* MIGRAINE CLASSICAL [G43.109] INVALID FOR* URINARY FREQUENCY [R35.0] INVALID FOR* CERVICALGIA [M54.2] INVALID FOR* S/P endometrial ablation [Z98.890] INVALID FOR* History of meningioma [Z86.018] More... Paresthesia [R20.2] INVALID FOR* Intractable chronic migraine without aura [G43.*INVALID FOR* Medication overuse headache [G44.40] INVALID FOR*12/23/2015 Vitamin D deficiency [E55.9] INVALID FOR* Encounter Status:Closed by VANESSA HOGAN PA-C on 10/30/17 PROGRESS Observed: 10/11/2017 Status: COMPLETED Source: [place] 11:09 AM [facility] REPOSITORY HNO ID: [id number] Author: Estrada Danielle Service: (none) Author Type: Physician Type: Progress Notes Filed: 10/11/2017 3:29 PM Note Text: Headache Center - Follow-up Visit ASSESSMENT: 52?year old female with history significant for anxiety, migraine, neck pain, cervical meningioma s/p C5-T1 laminectomy, and chronic daily headache consistent with chronic migraine with chronic cervical musculoskeletal pain, and now a lot of L TMJ pain/dysfunction. She does well with Botox, going from potentially 30 days of headache per month down 7?days at best with much less intensity. Trokendi seems to have provided additional benefit. ? PLAN: (Please see typed patient instructions for detailed instructions) --->?Acute Treatment: -Imitrex vs. Treximet. ?? --->?Preventive Treatment: -She would like to try holding off of Botox and see how she does. Today is a 3 month sabra so I told her if she gets very bad in the next few weeks and wants to do the Botox to let us know. -Increase Trokendi to 200 mg daily. -Cymbalta would be a good consideration next to also target the chronic neck pain, which I suspect is likely one of her headache triggers, but she is still hesitant about starting this. -CGRP Antagonists discussed, and she would like to try one when available. -IMATCH again discussed and remains my primary recommendation. -I suggested another course of neck PT, but she prefers to hold off. ?? --->?Follow-up: 3?months, or sooner if she would like to restart Botox. Last Visit: 07/13/17 Interval Headache Hx: Wants to try going without Botox to see how she does. She is at the 3 month sabra. Still a mix of chronic musculoskeletal pain and headaches. 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 (4 mg/mL) nasal spray 1 SPRAY PER NOSTRIL. POINT AWAY FROM FACE AND DO NO SNIFF. IN 15 MINUTES, REPEAT 1 SPRAY IN EACH NOSTRIL. CAN USE EVERY 8 HOURS PRN. naproxen (NAPROSYN) 500 mg tablet Take 1 tablet by mouth twice daily as needed. Take with food. SUMAtriptan-Naproxen (TREXIMET) 85-500 mg per tablet Take 1 tab at migraine onset. May repeat once in 2 hours if needed. Give max allowed per insurance. frovatriptan (FROVA) 2.5 mg tablet Take 1 tab at migraine onset. May repeat once in 2 hours if needed. Give max allowed per insurance. diclofenac sodium (VOLTAREN) 1 % topical gel Apply 2 g to affected area four times daily. topiramate (TROKENDI XR) 100 mg cp24 Take 100 mg by mouth daily at bedtime. CALCIUM CARBONATE/VITAMIN D3 (VITAMIN D-3 ORAL) Take by mouth once daily. SUMAtriptan (IMITREX STATDOSE PEN) 6 mg/0.5 mL kit 1 injection at migraine onset. May repeat once in 2 hours. Give max allowed per insurance. riboflavin, vitamin B2, (VITAMIN B-2) 100 mg tab Take 100 mg by mouth four times daily. SUMAtriptan (IMITREX) 100 mg tablet Take 1 tab at migraine onset. May repeat once in 2 hours if needed. Give max allowed per insurance. magnesium oxide 400 mg ORAL tablet Take one(1) tablet daily. No current facility-administered medications for this visit. REVIEW OF SYSTEMS: Review of system : unchanged from the previous visit (sleep patterns, mood, energy, appetite, stress, exercising). Physical Examination: BP 102/68 Pulse 69 Wt 76.7 kg (169 lb) BMI 24.25 kg/m2 GEN: Alert. NAD. Normal affect. Cooperative. NEUROLOGICAL: A+O x 3. Attentive. Thought process and content unremarkable. Follows commands appropriately. Speech fluent. Estrada Danielle DO [facility] [place] Department of [facility] [address] [place] [phone] Pager [phone] Total time in minutes spent with patient, reviewing records, imaging, labs, and documenting, with extended discussion of treatment options: 40 with more than 50% of the time spent in patient education/counselling/coordinating care with the patient. cc: [place] [address] [place] [id number] CNOV Observed: 10/11/2017 Status: COMPLETED Source: [place] 10:40 [facility] REPOSITORY Office Visit (NEURBR) GUEROAMERICO ([id number]) 1965 F Date Time Provider Department 10/11/17 10:40 AM ESTRADA DANIELLE During your visit today, we recorded the following information about you: Pulse Blood pressure Weight 69/minute 102/68 76.7 kg Estrada Danielle DO 10/11/2017 3:29 PM Signed Headache Center - Follow-up Visit ASSESSMENT: 52?year old female with history significant for anxiety, migraine, neck pain, cervical meningioma s/p C5-T1 laminectomy, and chronic daily headache consistent with chronic migraine with chronic cervical musculoskeletal pain, and now a lot of L TMJ pain/dysfunction. She does well with Botox, going from potentially 30 days of headache per month down 7?days at best with much less intensity. Trokendi seems to have provided additional benefit. ? PLAN: (Please see typed patient instructions for detailed instructions) ---ANDgt;?Acute Treatment: -Imitrex vs. Treximet. ?? ---ANDgt;?Preventive Treatment: -She would like to try holding off of Botox and see how she does. Today is a 3 month sabra so I told her if she gets very bad in the next few weeks and wants to do the Botox to let us know. -Increase Trokendi to 200 mg daily. -Cymbalta would be a good consideration next to also target the chronic neck pain, which I suspect is likely one of her headache triggers, but she is still hesitant about starting this. -CGRP Antagonists discussed, and she would like to try one when available. -IMATCH again discussed and remains my primary recommendation. -I suggested another course of neck PT, but she prefers to hold off. ?? ---ANDgt;?Follow-up: 3?months, or sooner if she would like to restart Botox. Last Visit: 07/13/17 Interval Headache Hx: Wants to try going without Botox to see how she does. She is at the 3 month sabra. Still a mix of chronic musculoskeletal pain and headaches. 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 (4 mg/mL) nasal spray 1 SPRAY PER NOSTRIL. POINT AWAY FROM FACE AND DO NO SNIFF. IN 15 MINUTES, REPEAT 1 SPRAY IN EACH NOSTRIL. CAN USE EVERY 8 HOURS PRN. naproxen (NAPROSYN) 500 mg tablet Take 1 tablet by mouth twice daily as needed. Take with food. SUMAtriptan-Naproxen (TREXIMET) 85-500 mg per tablet Take 1 tab at migraine onset. May repeat once in 2 hours if needed. Give max allowed per insurance. frovatriptan (FROVA) 2.5 mg tablet Take 1 tab at migraine onset. May repeat once in 2 hours if needed. Give max allowed per insurance. diclofenac sodium (VOLTAREN) 1 % topical gel Apply 2 g to affected area four times daily. topiramate (TROKENDI XR) 100 mg cp24 Take 100 mg by mouth daily at bedtime. CALCIUM CARBONATE/VITAMIN D3 (VITAMIN D-3 ORAL) Take by mouth once daily. SUMAtriptan (IMITREX STATDOSE PEN) 6 mg/0.5 mL kit 1 injection at migraine onset. May repeat once in 2 hours. Give max allowed per insurance. riboflavin, vitamin B2, (VITAMIN B-2) 100 mg tab Take 100 mg by mouth four times daily. SUMAtriptan (IMITREX) 100 mg tablet Take 1 tab at migraine onset. May repeat once in 2 hours if needed. Give max allowed per insurance. magnesium oxide 400 mg ORAL tablet Take one(1) tablet daily. No current facility-administered medications for this visit. REVIEW OF SYSTEMS: Review of system : unchanged from the previous visit (sleep patterns, mood, energy, appetite, stress, exercising). Physical Examination: BP 102/68 Pulse 69 Wt 76.7 kg (169 lb) BMI 24.25 kg/m2 GEN: Alert. NAD. Normal affect. Cooperative. NEUROLOGICAL: A+O x 3. Attentive. Thought process and content unremarkable. Follows commands appropriately. Speech fluent. Estrada Danielle DO [facility] [place] Department of [facility] [address] [place] [address], [address] [id number] Pager [phone] Total time in minutes spent with patient, reviewing records, imaging, labs, and documenting, with extended discussion of treatment options: 40 with more than 50% of the time spent in patient education/counselling/coordinating care with the patient. cc: Abbe Cabezas DO [address] [place] [id number] Referring Provider: ESTRADA DANIELLE [[id number]] Allergies As of Date: 10/11/2017 (No Known Allergies) Date Reviewed: 10/11/2017 Reviewed by: Estrada Danielle - Fully Assessed Reason for Visit: Follow Up [171] Cmt: migraines Reason For Visit History Recorded Primary Visit Diagnosis:Intractable chronic migraine without aura and without status migrainosus [G43.719] Other Visit Diagnoses:Chronic migraine without aura, with intractable migraine, so stated, with status migrainosus [G43.711] Bilateral occipital neuralgia [M54.81] Cervicalgia [M54.2] Order(s):SUMAtriptan (IMITREX) 100 mg tabletTake 1 tab at migraine onset. May repeat once in 2 hours if needed. Give max allowed per insurance.Disp: 27 tabletRfl: 3 SUMAtriptan-Naproxen (TREXIMET) 85-500 mg per tabletTake 1 tab at migraine onset. May repeat once in 2 hours if needed. Give max allowed per insurance.Disp: 27 tabletRfl: 3 topiramate (TROKENDI XR) 200 mg [id number] 1 capsule by mouth daily at bedtime.Disp: 90 capsuleRfl: 3 ZEMBRACE SYMTOUCH 3 mg/0.5 mL pnij1 injection at migraine onset. May repeat once in 2 hours if needed.Disp: 6 UnitsRfl: 11 Prescriptions as of 10/11/2017 Sig: SUMATRIPTAN 100 MG TABLET Take 1 tab at migraine onset.* SUMATRIPTAN 85 MG-NAPROXEN 50* Take 1 tab at migraine onset.* NAPROXEN 500 MG TABLET Take 1 tablet by mouth twice * DICLOFENAC 1 % TOPICAL GEL Apply 2 g to affected area fo* VITAMIN D-3 ORAL Take by mouth once daily. RIBOFLAVIN (VITAMIN B2) 100 M* Take 100 mg by mouth four janet* MAGNESIUM OXIDE 400 MG TABLET Take one(1) tablet daily. TOPIRAMATE XR 200 MG CAPSULE,* Take 1 capsule by mouth daily* ZEMBRACE SYMTOUCH 3 MG/0.5 ML* 1 injection at migraine onset* Problem List As Of Date 10/11/2017 Noted Resolved ACUTE PHARYNGITIS [J02.9] INVALID FOR* MIGRAINE CLASSICAL [G43.109] INVALID FOR* URINARY FREQUENCY [R35.0] INVALID FOR* CERVICALGIA [M54.2] INVALID FOR* S/P endometrial ablation [Z98.890] INVALID FOR* History of meningioma [Z86.018] More... Paresthesia [R20.2] INVALID FOR* Intractable chronic migraine without aura [G43.*INVALID FOR* Medication overuse headache [G44.40] INVALID FOR*12/23/2015 Vitamin D deficiency [E55.9] INVALID FOR* Prescriptions ordered this encounter Disp Refills Start End SUMATRIPTAN 100 MG TABLET 27 t* 3 10/11/2017 Class: [employer] Sig: Take 1 tab at migraine onset. May repeat once in 2 hours if needed. Give max allowed per insurance. SUMATRIPTAN 85 MG-NAPROXEN 500 MG TA* 27 t* 3 10/11/2017 Sig: Take 1 tab at migraine onset. May repeat once in 2 hours if needed. Give max allowed per insurance. TOPIRAMATE XR 200 MG CAPSULE,EXTENDE* 90 c* 3 10/11/2017 10/11/2018 Class: [employer] Route: ORAL Sig: Take 1 capsule by mouth daily at bedtime. ZEMBRACE SYMTOUCH 3 MG/0.5 ML SUBCUT* 6 Un* 11 10/11/2017 Si injection at migraine onset. May repeat once in 2 hours if needed. Medications Discontinued During This Encounter topiramate (TROKENDI XR) 100 mg cp24 90 c* 3 10/06/2016 10/11/2017 Class: [employer] Route: ORAL Sig: Take 100 mg by mouth daily at bedtime. Disc: Reason for discontinue is not on file. Dihydroergotamine Mesylate (MIGRANAL* 8 Sp* 9 08/31/2017 10/11/2017 Si SPRAY PER NOSTRIL. POINT AWAY FROM FACE AND DO NO SNIFF. IN 15 MINUTES, REPEAT 1 SPRAY IN EACH NOSTRIL. CAN USE EVERY 8 HOURS PRN. Disc: Reason for discontinue is not on file. frovatriptan (FROVA) 2.5 mg tablet 9 ta* 11 05/02/2017 10/11/2017 Sig: Take 1 tab at migraine onset. May repeat once in 2 hours if needed. Give max allowed per insurance. Disc: Reason for discontinue is not on file. SUMAtriptan (IMITREX STATDOSE PEN) 6* 24 E* 3 09/14/2016 10/11/2017 Class: [employer] Si injection at migraine onset. May repeat once in 2 hours. Give max allowed per insurance. Disc: Reason for discontinue is not on file. SUMAtriptan (IMITREX) 100 mg tablet 27 t* 3 02/11/2016 10/11/2017 Sig: Take 1 tab at migraine onset. May repeat once in 2 hours if needed. Give max allowed per insurance. Disc: Reason for discontinue is not on file. SUMAtriptan-Naproxen (TREXIMET) 85-5* 27 t* 3 06/21/2017 10/11/2017 Sig: Take 1 tab at migraine onset. May repeat once in 2 hours if needed. Give max allowed per insurance. Disc: Reason for discontinue is not on file. Disposition: Return in about 3 months (around 01/11/2018). Follow-up and Disposition History Recorded Encounter Status:Closed by ESTRADA DANIELLE DO on 10/11/17 PROGRESS Observed: 08/24/2017 Status: COMPLETED Source: [place] 3:22 PM [facility] REPOSITORY HNO ID: [id number] Author: Radha Chavez Psr Service: (none) Author Type: (none) Type: Progress Notes Filed: 08/24/2017 3:22 PM Note Text: pap logged, letter sent. Radha Chavez Psr CNCO Observed: 08/15/2017 Status: COMPLETED Source: [place] 10:30 AM [facility] REPOSITORY HNO ID: [id number] Author: Mammography Coordinator Service: (none) Author Type: Physician Type: Letter Filed: 08/16/2017 11:31 PM Note Text: August 15, 2017 PID: [id number] Americo Jack [address] [place] [address] Dear Ms. Jack, We are pleased to inform you that the results of your recent breast imaging exam on 08/15/2017 are normal. Early detection of cancer is very important. We also understand recommendations regarding breast cancer screening are controversial. Please discuss with your primary care provider which strategy is best for you and whether a mammogram is right for you. Your imaging studies and report will be kept on file at [facility] as part of your permanent medical record and are available for your continuing care. Thank you for allowing us to help in meeting your health care needs. Sincerely, Dr. Frederick Interpreting Radiologist [facility] (Normal over 40) HPV W/GENOTYPE Collected: 08/15/2017 Status: F Source: [place] 8:38 [facility] REPOSITORY TYPE CODE TESTS RESULT OUT OF REFERENCE UNITS RANGE LAB HPVT16 HPV HighRisk Negative for Type 16 HPV DNA high risk type 16 by PCR. LAB HPVT18 HPV HighRisk Negative for Type 18 HPV DNA high risk type 18 by PCR. LAB HPVHRO HPV HighRisk Negative for Other HPV DNA high risk types: 31,33,35,39,45 ,51,52,56,58,5 9,66,68 by PCR. Result Comment: This test was developed and its performance characteristics determined by [facility]'s Yrn C[facility] [place] ([facility]). It has not been cleared or approved by the FDA. -[facility] is regulated under CLIA as qualified to perform high-complexity testing. This test is used for clinical purposes. It should not be regarded as inv estigational or for research. Performed By: #### HPVHRR #### [facility] [address], [place] [address] CYTOLOGY Observed: 08/15/2017 Status: C Source: [place] 8:38 [facility] REPOSITORY ADDITIONAL PROCEDURES PRESENT Specimen originated from [facility] Specimen #: [id number] Submitting Physician: CECILIA KIRBY SPECIMEN SUBMITTED A: CERVICAL, SCREENING, FLUID FINAL DIAGNOSIS A. CERVICAL, SCREENING, FLUID Satisfactory for interpretation. Negative for intraepithelial lesion or malignancy. This specimen has been analyzed by the ThinPrep Imaging System, an automated imaging and review system, which assists the laboratory in evaluating cells on ThinPrep Pap tests. Following automated imaging, selected herr from every slide are reviewed by a bean dumper. RONALD Mera (Electronic Signature) ADDITIONAL PROCEDURE(S) HUMAN PAPILLOMA VIRUS Date Ordered: 08/16/2017 Date Reported: 08/17/2017 Procedure Results and Interpretation Negative for HPV DNA high risk type 16 by PCR. Negative for HPV DNA high risk type 18 by PCR. Negative for HPV DNA high risk types: 31,33,35,39,45,51,52,56,58,59,66,68 by PCR. This test was developed and its performance characteristics determined by [facility]'s [facility] [place] ([facility]). It has not been cleared or approved by the FDA. -[facility] is regulated under CLIA as qualified to perform high-complexity testing. This test is used for clinical purposes. It should not be regarded as investigational or for research. CLINICAL DATA ROUTINE EXAM, HPV Testing: Yes, automatic HPV patients over 30 Date of Last Menstrual Period: Ablation STAINS A: CERVICAL, SCREENING, FLUID THIN PREP FINISHED GOODS PLANNER Ynes Muller M.D., Printing Press Operator Date of Report: 08/24/2017 Date of Procedure: 08/15/2017 Date of Receipt: 08/16/2017 Submitted by: CECILIA KIRBY Location: [facility] Diagnostic interpretation performed at [facility], [address] [place] [address]. The Pap Smear is a screening test for cervical cancer. False negative results occur with all screening tests, emphasizing the need for rescreening at recommended intervals, and clinical correlation. CNOV Observed: 08/15/2017 Status: COMPLETED Source: [place] 8:15 AM [facility] REPOSITORY Office Visit (WOOB) AMERICO JACK ([id number]) 1965 F Date Time Provider Department 08/15/17 8:15 AM CECILIA KIRBY (ISAAK) WOOB During your visit today, we recorded the following information about you: Blood pressure Weight Height 102/62 76.2 kg 1.778 m CECILIA KIRBY CNP 08/15/2017 8:47 AM Signed Americo Jack is a 52 year old who presents for her annual gynecologic exam without complaints. Postmenopausal: No menses ablation HRT use: No. Last Pap: 2011 normal HPV: 2011 negative History of abnormal pap: No Last mammogram: 2018 pending History of abnormal mammogram: No Sexually active: Yes Pain with intercourse: No Postcoital bleeding: No Hot flashes: No Night sweats: No Vaginal dryness: No Obstetric History T3 L3 SAB0 TAB0 Ectopic0 Multiple0 Live Births0 PAST MEDICAL HISTORY Diagnosis Date - Anxiety state, unspecified - Cervicalgia - Constipation - History of meningioma 1995 Cervical spine - Irritable bowel syndrome - Migraine without aura, without mention of intractable migraine without mention of status migrainosus - Unspecified viral meningitis 2002 PAST SURGICAL HISTORY Procedure Laterality Date - LIGATE FALLOPIAN TUBE 02/18 Tubal ligation and Novasure ablation - PAST SURGICAL HISTORY OF 1995 tumor off spinal cord- meningioma C7- [facility] Dr. Braun - PAST SURGICAL HISTORY OF left hand surgery- fracture 5th digit FAMILY HISTORY Problem Relation Age of Onset - Hypertension Mother - Headache Mother - Heart Father CHF- age 81 - Diabetes Father - Prostate Cancer Father - Multiple Sclerosis Sister - PFO [Other] [OTHER] Son with subsequent stroke SOCIAL HISTORY Social History Substance Use Topics - Smoking status: Never Smoker - Smokeless tobacco: Never Used - Alcohol use Yes Comment: Rarely REVIEW OF SYSTEMS Abdomen: No abdominal pain, nausea, vomiting, diarrhea, or constipation. No bloating, early satiety, indigestion, or increased flatulence. Bladder: No dysuria, gross hematuria, urinary frequency, urinary urgency, or incontinence Breast: No breast lumps, nipple d/c, overlying skin changes, redness or skin retraction Allergies and current medication updated:Yes EXAM: There were no vitals taken for this visit. GENERAL: pleasant, female in no apparent distress HEENT: Normocephalic, atraumatic, mucus membranes moist and no lesions NECK: Supple, full range of motion, no adenopathy and thyroid normal DERMATOLOGY: Normal, without lesions, non-icteric and non-hirsute BREAST: soft, non-tender, symmetric, no dominant mass, normal nipple-areolar complex, no lymphadenopathy and no nipple discharge CHEST: Normal inspiratory effort ABDOMEN: soft, non-tender and no masses PELVIC: external genitalia normal, normal Bartholin's glands, urethra, Whipholt's glands, no vulvar lesions, no cervical lesions, good vaginal support, physiologic discharge present, normal appearing perineal body and perianal region BIMANUAL: uterus normal size, shape and consistency, no adnexal masses, non-tender and no cervical motion tenderness RECTOVAGINAL: deferred. NEURO: alert and oriented x3,exam grossly non-focal EXTREMITIES: normal ASSESSMENT/PLAN: 1) Health maintenance: Pap done with HPV. Mammogram up to date Nutrition, exercise and routine health maintenance exams reviewed. Calcium/Vitamin D supplementation information provided. Colon cancer screening: patient to discuss with PCP 2) Follow up one year or sooner as needed CECILIA KIRBY CNP Referring Provider: ABBE CABEZAS [[id number]] Allergies As of Date: 08/15/2017 (No Known Allergies) Date Reviewed: 08/15/2017 Reviewed by: Cecilia Hyatt) Kofi - Fully Assessed Primary Visit Diagnosis:Encounter for gynecological examination (general) (routine) without abnormal findings [Z01.419] Other Visit Diagnoses:Encounter for screening for human papillomavirus (HPV) [Z11.51] Pap smear for cervical cancer screening [Z12.4] Encounter for screening mammogram for breast cancer [Z12.31] Order(s):PAP FLUID CERVICAL SCREENING [2335983] Order #: [id number] DANIEL SCREENING [[id number]] Order #: [id number] FUTURE Prescriptions as of 08/15/2017 Sig: DIHYDROERGOTAMINE 0.5 MG/PUMP* 1 SPRAY PER NOSTRIL. POINT AW* NAPROXEN 500 MG TABLET Take 1 tablet by mouth twice * SUMATRIPTAN 85 MG-NAPROXEN 50* Take 1 tab at migraine onset.* FROVATRIPTAN 2.5 MG TABLET Take 1 tab at migraine onset.* DICLOFENAC 1 % TOPICAL GEL Apply 2 g to affected area fo* TOPIRAMATE XR 100 MG CAPSULE,* Take 100 mg by mouth daily at* VITAMIN D-3 ORAL Take by mouth once daily. SUMATRIPTAN 6 MG/0.5 ML SUBCU* 1 injection at migraine onset* RIBOFLAVIN (VITAMIN B2) 100 M* Take 100 mg by mouth four janet* SUMATRIPTAN 100 MG TABLET Take 1 tab at migraine onset.* MAGNESIUM OXIDE 400 MG TABLET Take one(1) tablet daily. Problem List As Of Date 08/15/2017 Noted Resolved ACUTE PHARYNGITIS [J02.9] INVALID FOR* MIGRAINE CLASSICAL [G43.109] INVALID FOR* URINARY FREQUENCY [R35.0] INVALID FOR* CERVICALGIA [M54.2] INVALID FOR* S/P endometrial ablation [Z98.890] INVALID FOR* History of meningioma [Z86.018] More... Paresthesia [R20.2] INVALID FOR* Intractable chronic migraine without aura [G43.*INVALID FOR* Medication overuse headache [G44.40] INVALID FOR*12/23/2015 Vitamin D deficiency [E55.9] INVALID FOR* Disposition: Return in 1 year (on 08/15/2018) for Annual Exam. Follow-up and Disposition History Recorded Encounter Status:Closed by CECILIA KIRBY on 08/15/17 PROGRESS Observed: 08/15/2017 Status: COMPLETED Source: [place] 8:11 AM [facility] REPOSITORY O ID: [id number] Author: Cecilia Kirby Service: (none) Author Type: Nurse Practitioner Type: Progress Notes Filed: 08/15/2017 8:47 AM Note Text: Americo Jack is a 52 year old who presents for her annual gynecologic exam without complaints. Postmenopausal: No menses ablation HRT use: No. Last Pap: 2011 normal HPV: 2012 negative History of abnormal pap: No Last mammogram: 2018 pending History of abnormal mammogram: No Sexually active: Yes Pain with intercourse: No Postcoital bleeding: No Hot flashes: No Night sweats: No Vaginal dryness: No Obstetric History T3 L3 SAB0 TAB0 Ectopic0 Multiple0 Live Births0 PAST MEDICAL HISTORY Diagnosis Date - Anxiety state, unspecified - Cervicalgia - Constipation - History of meningioma 1995 Cervical spine - Irritable bowel syndrome - Migraine without aura, without mention of intractable migraine without mention of status migrainosus - Unspecified viral meningitis 2002 PAST SURGICAL HISTORY Procedure Laterality Date - LIGATE FALLOPIAN TUBE 02/18 Tubal ligation and Novasure ablation - PAST SURGICAL HISTORY OF 1995 tumor off spinal cord- meningioma C7- [facility] Dr. Braun - PAST SURGICAL HISTORY OF left hand surgery- fracture 5th digit FAMILY HISTORY Problem Relation Age of Onset - Hypertension Mother - Headache Mother - Heart Father CHF- age 81 - Diabetes Father - Prostate Cancer Father - Multiple Sclerosis Sister - PFO [Other] [OTHER] Son with subsequent stroke SOCIAL HISTORY Social History Substance Use Topics - Smoking status: Never Smoker - Smokeless tobacco: Never Used - Alcohol use Yes Comment: Rarely REVIEW OF SYSTEMS Abdomen: No abdominal pain, nausea, vomiting, diarrhea, or constipation. No bloating, early satiety, indigestion, or increased flatulence. Bladder: No dysuria, gross hematuria, urinary frequency, urinary urgency, or incontinence Breast: No breast lumps, nipple d/c, overlying skin changes, redness or skin retraction Allergies and current medication updated:Yes EXAM: There were no vitals taken for this visit. GENERAL: pleasant, female in no apparent distress HEENT: Normocephalic, atraumatic, mucus membranes moist and no lesions NECK: Supple, full range of motion, no adenopathy and thyroid normal DERMATOLOGY: Normal, without lesions, non-icteric and non-hirsute BREAST: soft, non-tender, symmetric, no dominant mass, normal nipple-areolar complex, no lymphadenopathy and no nipple discharge CHEST: Normal inspiratory effort ABDOMEN: soft, non-tender and no masses PELVIC: external genitalia normal, normal Bartholin's glands, urethra, Whipholt's glands, no vulvar lesions, no cervical lesions, good vaginal support, physiologic discharge present, normal appearing perineal body and perianal region BIMANUAL: uterus normal size, shape and consistency, no adnexal masses, non-tender and no cervical motion tenderness RECTOVAGINAL: deferred. NEURO: alert and oriented x3,exam grossly non-focal EXTREMITIES: normal ASSESSMENT/PLAN: 1) Health maintenance: Pap done with HPV. Mammogram up to date Nutrition, exercise and routine health maintenance exams reviewed. Calcium/Vitamin D supplementation information provided. Colon cancer screening: patient to discuss with PCP 2) Follow up one year or sooner as needed CECILIA KIRBY CNP DANIEL DIG SCREEN CAD Observed: 08/15/2017 Status: F Source: [place] 8:05 AM [facility] [place] REPOSITORY * * *Final Report* * * DATE OF EXAM: Aug 15 2017 8:05AM WOW [id number] - [facility] DIG SCREEN CAD [place] - BILATERAL / PROCEDURE REASON: Encounter for screening mammogram for malignant neoplasm of breast * * * * Physician Interpretation * * * * RESULT: #[id number] - [facility] DIG SCREEN CAD [place] BILATERAL DIGITAL SCREENING MAMMOGRAM WITH CAD: 08/15/2017 HISTORY: Encounter For Screening Mammogram For Malignant Neoplasm Of Breast /Patient reports NO breast symptoms /priors available for comparison. RESULT: TECHNIQUE: The study was acquired using full field digital technology and interpreted from soft copy. Current study was also evaluated with a Computer Aided Detection (CAD). Comparison is made to exams dated: 12/27/2015 mammogram and 10/21/2014 mammogram - [facility]. There are scattered fibroglandular elements in both breasts. No significant masses, calcifications, or other findings are seen in either breast. There has been no significant interval change. IMPRESSION: NEGATIVE There is no mammographic evidence of malignancy.A 1 year screening mammogram is recommended. Mavis Frederick M.D., mc/daniel:08/15/2017 10:30:08 Manipulator Operator: Valeria GUDINO)(Macie), [facility] letter sent: Normal over 40 Mammogram BI-RADS: 1 Negative Entry Table Operator: Daniel Transcribe Date/Time: Aug 15 2017 7:52A Dictated by: MAVIS SAENZ MD This examination was interpreted and the report reviewed and electronically signed by: MAVIS SAENZ MD on Aug 15 2017 10:30AM EST PROGRESS Observed: 08/15/2017 Status: COMPLETED Source: [place] 7:51 AM [facility] REPOSITORY HNO ID: [id number] Author: Aspen Shipman Service: (none) Author Type: (none) Type: Progress Notes Filed: 08/15/2017 8:16 AM Note Text: Radiology Service Progress Note PATIENT NAME: Americo Jack DATE OF SERVICE: August 15, 2017 TIME: 7:51 AM PATIENT IDENTITY VERIFICATION COMPLETED USING TWO (2) METHODS: Patient confirmed name verbally and Date of . PATIENT GENDER DATA: Female. status: : No status: NO. PATIENT RELEVANT IMPLANT DATA REVIEWED: Not Applicable RADIOLOGY DEPARTMENT: [facility] [place] [facility] mammogram PERIPHERAL IV DATA: Not applicable SIGNED BY: Aspen Shipman August 15, 2017 7:51 AM ALLERGIES ALLERGIES DATE TYPE / CODE NAME / CODE REACTION SEVERITY SOURCE 07/03/2018 Drug morphine/[id number] TACHYCARDIA Unknown [place] Allergy/416 545(RXNORM) Community 805325([facility] ED CT) Repository 03/05/2018 DRUG MORPHINE OTHER: SEE C [facility] INGREDI/419 [address] [place] 083632(SN Repository ED CT) 02/26/2018 Drug No Known Unknown [place] Allergy/416 Allergies/B51802 [facility] 248936([facility] Drug NO KNOWN [facility] Class/53170 ALLERGIES [address] [place] 1003(SNOMED Repository CT) ENCOUNTERS ENCOUNTERS ADMIT/DISCHARGE ACCOUNT ADMITTING ENCOUNTER LOCATION SOURCE NUMBER CLASS 07/31/2018 [id number] Ambulatory BMSBuilding:[place].[facility] Repository 07/31/2018 [id number] Ambulatory [place] [facility] Hospital ing[facility] Repository 07/11/2018/07/11/20 [id number] Ambulatory [address] Repository 07/03/2018/07/03/20 [id number] Ambulatory BMSBuilding:B [place] 18 MS.[facility] Repository 07/02/2018 [id number] Ambulatory BMSBuilding:B [place] MS.[facility] Repository 07/02/2018/07/02/20 [id number] Ambulatory [address] Repository 06/27/2018/06/27/20 [id number] Ambulatory [address] Repository 06/12/2018/06/13/20 [id number] Ambulatory [address] Repository 05/28/2018 [id number] Ambulatory [facility] ing:PT Repository 05/06/2018/05/10/20 [id number] Ambulatory [address] Repository 04/24/2018/04/24/20 [id number] DINA CASAREZ Ambulatory [address] Repository 04/10/2018/04/10/20 [id number] Emergency [address] ing:ED Repository 04/10/2018/04/10/20 [id number] Ambulatory [address] Repository 04/10/2018/04/11/20 [id number] Ambulatory [address] Repository 03/20/2018/03/21/20 [id number] Ambulatory [address] [place] Repository 03/04/2018/03/06/20 [id number] Ambulatory [address] Repository 02/26/2018/02/27/20 [id number] Emergency [address] ing:ED Repository 01/24/2018 [id number] DINA CASAREZ Ambulatory [facility] Repository 10/30/2017/11/01/19 [id number] Ambulatory [address] Repository 10/11/2017/10/13/19 [id number] Ambulatory [address] Repository 08/15/2017/08/16/19 [id number] Ambulatory [address] [place] Repository 08/15/2017/08/15/19 [id number] Ambulatory [address] Repository PAYERS PAYERS ENCOUNTER GUARANTOR PAYER SUBSCRIBER SOURCE 07/31/2018 PHYLLIS Gonzales [place] [id number] N Insurance:MEDICAL HOLCOMBDOB: [facility] [employer] [facility] [id number] Number: Repository [address]Iqd: [phone] [id number] [phone] () Date:[id number] [address] [address]KZ: 07/31/2018 Secondary NOT GIVENUNK [place] Insurance:SELF PAY [facility] Number: Effective Repository Date:2018-07-31 07/31/2018 PHYLLIS Hercules Primary AMERICO Ritchie [id number] N Insurance:MEDICAL HOLCOMBDOB: [address] Number: Repository [address]Cxi: 330 [id number] [phone] () Date:[id number] [address] [address]YK: 07/31/2018 Secondary NOT GIVENUNK [place] Insurance:SELF PAY [facility] Number: Effective Repository Date:2018-07-03 07/03/2018 PHYLLIS Hercules Primary AMERICO Ritchie [id number] N Insurance:MEDICAL HOLCOMBDOB: [address] Number: Repository [id number]: 330 [id number] [phone] () Date:3150-83-36LG[address] [address]EA: 07/03/2018 Secondary NOT GIVENUNK [place] Insurance:SELF PAY [facility] Number: Effective Repository Date:2018-07-03 07/02/2018 PHYLLIS Hercules Primary AMERICO Ritchie [id number] N Insurance:MEDICAL HOLCOMBDOB: [address] Number: Repository [id number]: 330 [id number] [phone] () Date:1016-37-50SK [address] [address]QD: 07/02/2018 Secondary NOT GIVENUNK [place] Insurance:SELF PAY [facility] Number: Effective Repository Date:2018-07-02 05/28/2018 PHYLLIS Hercules Primary AMERICO Ritchie [id number] N Insurance:MEDICAL HOLCOMBDOB: [address] [place] Number: Repository [address]Kzg: 330 [id number] [phone] () Date:8053-08-28FV [address] [place] [address]KB: 05/28/2018 Secondary NOT GIVENUNK [place] Insurance:SELF PAY [facility] Number: Effective Repository Date:2018-03-21 04/10/2018 PHYLLIS Hercules Primary AMERICO Ritchie [id number] N Insurance:MEDICAL HOLCOMBDOB: Community [facility] [id number] Number: Repository [address]Fwl: 330 [id number] [phone] () Date:5262-50-53ZI [address] [address]XO: 04/10/2018 Secondary NOT GIVENUNK [place] Insurance:SELF PAY [facility] Number: Effective Repository Date:2018-04-10 02/26/2018 Phyllis Hercules Primary AMERICO Ritchie [id number] N Insurance:MEDICAL HOLCOMBDOB: [place] [address]-07-[place], [place] Number: Repository [address]Wqj: 330 [id number] [phone] () Date:2800-36-94HT [address] [place] [address]WF: 02/26/2018 Secondary NOT GIVENUNK [place] Insurance:SELF PAY [facility] Number: Effective Repository Date:2018-02-26
== END ==
PROVIDERS: Family Provider Student in an Organized Health Care Education/Training Program; PCP Student in an Organized Health Care Education/Training Program; Referring Provider Internal Medicine Cardiovascular Disease; Visit Provider Internal Medicine Cardiovascular Disease
DX: R07.9 Chest pain, unspecified (principal)
CPT/HCPCS: 78452; 93017; 93306; A9500; A4216

== ENCOUNTER 2019-05-09 07:00 | Outpatient (RCR) | payer OTHER, SELFPAY ==
[2018-07-03 12:42] VITALS: BMI 24.5
--- NOTE | 2019-05-09 08:25 | HP.PTDCSUM ---
HP - PT D/C Summary It has been my pleasure to treat SUE JACK under orders from Abbe Cabezas DO, for the diagnosis of r shoulder pain for a total of 6 visit(s). Discharge Date: Please see the following information for a summary of their discharge status. - Subjective Subjective: Patient reports that she was really sore after last visit. Wants a HEP and plans to follow up with ortho - Overall Improvement % Improvement: 25 - Objective Objective/Function: Gait: WNL- good arm swing and trunk rotation- does have rounded shoulders. Posture: rounded shoulders, kyphosis, increased thoracic flexion while seated. L shoulder slightly elevated. Leaning to R while seated in chair. Palpation: upper trapezius restriction- significant restriction with cervical musculature. AROM: cervical ROM limited in all directions- flexion: decreased by 50%, Extn: decreased by 25%, SB: decreased by 50% Rot: decreased 50% UE: WNL. Observation: incision along spine - well healed- approx T3-C5. Strength: Scapular: poor, Shoulder: 4+/5 throughout. No significant changes since IE. - Goals Goal 1:: Pt. will be I w/ HEP & progression Goal Progress: Goal Met Goal 2:: Pt. will maintain proper posture t/ tx session to demo improved core strength Goal Progress: Not Progressing Goal 3:: Pt. will demo 5/5 strength in B UE Goal Progress: Progressing Goal 4:: Pt. will report o/10 pain w/ ADL's/Work Activities Goal Progress: Not Progressing - Plan Plan: Discharge to I HEP- encoruaged good posture - D/C Information If there are questions or concerns regarding this patient's physical therapy, please feel free to call me at [phone]. Thank you for the referral of this patient. Sincerely, Liliya Lew DPT
== END 2019-05-09 12:33 | disposition home or self-care (01) ==
LOC: PT 07:00
PROVIDERS: Family Provider Student in an Organized Health Care Education/Training Program; PCP Student in an Organized Health Care Education/Training Program; Visit Provider Student in an Organized Health Care Education/Training Program
DX: M25.511 Pain in right shoulder (principal)
CPT/HCPCS: 97110; 97140; 97161; 97164

== ENCOUNTER → 2019-05-27 | Outpatient (CLI) | payer OTHER, SELFPAY ==
[2018-07-03 12:42] VITALS: BMI 24.5
--- NOTE | 2019-05-27 08:24 | RAD_ITS ---
STUDY: X-RAY - RIGHT SHOULDER REASON FOR EXAM: Female, 54 years old. Shoulder pain. TECHNIQUE: 2 view(s) of the shoulder on 4 images. COMPARISON: None. FINDINGS: Normal glenohumeral articulation. Mild acromioclavicular joint hypertrophy. Normal acromion. Normal humeral head and visualized proximal humerus. The soft tissue structures are unremarkable. Normal visualized pulmonary apex. RAD/Shoulder min 2 Views IMPRESSION: Mild AC joint arthrosis. No acute finding. Electronically Signed: Jason Carter MD at 10:45 EST , Service support ,
--- NOTE | 2019-05-27 08:24 | RAD_ITS ---
STUDY: X-RAY - LEFT SHOULDER REASON FOR EXAM: Female, 54 years old. Shoulder pain. TECHNIQUE: 2 view(s) of the shoulder on 4 images. COMPARISON: None. FINDINGS: Normal glenohumeral articulation. Minimal AC joint arthrosis. Normal acromion. Normal humeral head and visualized proximal humerus. The soft tissue structures are unremarkable. Normal visualized pulmonary apex. RAD/Shoulder min 2 Views IMPRESSION: Minimal AC joint arthrosis. Electronically Signed: Jason Carter MD at 10:49 EST , Service support ,
--- NOTE | 2019-05-27 08:24 | RAD_ITS ---
STUDY: X-RAY - CERVICAL SPINE REASON FOR EXAM: Female, 54 years old. Neck pain. TECHNIQUE: 5 view(s) of the cervical spine were obtained. COMPARISON: None FINDINGS: Mild generalized osteopenia. Normal anterior atlantoaxial articulation. Normal odontoid process. Slight increased lordosis. Limbus vertebra at C5, a normal variant. Minimal intervertebral disc space narrowing at C5-6 and C6-7 with anterior bony neural foraminal encroachment at these levels bilaterally. Diffuse uncovertebral and facet sclerosis. Right carotid calcification. RAD/Cerv Spine 4 or 5 Views IMPRESSION: Osteopenia with mild cervical spondylosis as described. Electronically Signed: Jason Carter MD at 10:23 EST , Service support ,
== END | disposition home or self-care (01) ==
LOC: HPRAD 08:24
PROVIDERS: Family Provider Student in an Organized Health Care Education/Training Program; PCP Student in an Organized Health Care Education/Training Program; Referring Provider Orthopaedic Surgery; Visit Provider Orthopaedic Surgery
DX: M54.2 Cervicalgia (principal); M25.511 Pain in right shoulder; M25.512 Pain in left shoulder
CPT/HCPCS: 72050; 73030

== ENCOUNTER 2021-02-17 17:00 | Outpatient (RCR) | payer OTHER, SELFPAY ==
[2019-07-01 14:11] VITALS: BMI 24.8
--- NOTE | 2020-12-27 16:43 | HP.PTEVAL_ITS ---
Patient's Visit Information SUE JACK is a 55 year old F referred to Physical Therapy by CHAPO Candelaria with a diagnosis of Left Buttock Pain. Date of Evaluation: 12/27/20 Physical Therapist: Liliya Lew DPT - Visit Plan Frequency: 1x/Week Duration: 2 Months Plan: Extension Bias. Ultrasound and Core Strength/stabilization - Subjective Patient reports that she hurts in her left buttocks- if she rolls over its excruciating and starting to band up into her lower back. This has been happening for a couple of months. 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 She saw her MD who gave her a muscle relaxer which did not really help. They did no x-rays or MRI but sent her to PT. She gave her a steroid pack which she did not take due to her migraines. Pain is located left glut and will get it across the lumbar spine and into the right buttock. Left is the worst pain at night- and describes it as sharp/shooting. No radiating pain down the LE. Laying flat and getting up is terrible. Better if she sleeps in the chair. Worst: 9/10 Agg: sleeping or laying flat, squatting, lifting, stairs down is worse. Eases: heat or ice. Best: 1-2/10. No loss of balance, falls or leg buckling. No change in bowel or bladder. Sleeper: side and very disturbed. When she gets up in the AM- it takes about an hour for it to go away- go out cleans out horse stalls and then shower- eats breakfast then feels better and can do her day. PMHx: migraines, spinal tumor- scar tissues Meds: topomax, adovi (migraine injection monthly) - Objective Posture: FH, RS- can correct with verbal cues but is unable to maintain. Gait: no deviation noted- good arm swing and trunk rotation. HR/TR: able without UE A. SLS: 10 sec mild hip drop bilateral but no UE A required. ROM: Lumbar: flexion:hands to mid shipley, Extn: WFL, SB: diminished by 50%, Rot: diminished by 50% all with reports of discomt. Hip/Knee/Ankle: WFL. Strength: Core: fair, Hip: 4/5 throughout, Knee: 5/5 Ankle: 5/5. Flex: HS: moderate, Gastroc: moderate. Sensation/Reflex: WNL to gross touch bilateral and patella. Special Test: LLD: negative, HANNAH: negative, Pelvic Alignment: WFL, Extn: decreased symptoms, Flexion: no change in symptoms - Goals Goal 1:: Patient will be I with HEP and progression Goal Time Frame: 4-6 Weeks Goal 2:: Patient will have no dural signs Goal Time Frame: 4-6 Weeks Goal 3:: Patient will maintain proper posture t/o tx session to demo increased core s/s Goal Time Frame: 4-6 Weeks - Rehabilitation Potential Physical Therapy Diagnosis: Patient presents with hypomobility- she has decreased core and LE strength, flex and muscular endurance leading to poor posture and increased pain with ADL's. Rehabilitation Potential: Good - Anticipated Interventions Patient/Client Instruction: Educate patient on: Benefits of Fitness Program Therapeutic Exercise to Include: Strength training, Endurance training, Coordination, Body mechanics, Postural training, Flexibilty training, Gait and locomotor training, Neuromotor development, Dynamic Lumbar Stabilization, Scapular Strength/Stabilization For the Purpose of:: To improve muscle performance and motor function Thank you for the opportunity to evaluate your patient. For Medicare and Medicare HMO plans, please review the plan of care and approve it. It will need to be FAXED BACK to us at [phone] for Medicare purposes. For Medicare only, by signing this I certify the plan of care. Please let me know if there are questions or concerns regarding this plan of care. Physician Signature: Date:
--- NOTE | 2021-01-24 10:22 | HP.PTREVAL_ITS ---
CHAPO Candelaria, It has been my pleasure to treat SUE JACK over the last 9 visits for Left Buttock Pain. Please see the progress note below for an update on the physical therapy plan of care! Subjective: Patient reports that she was doing okay then had a really hard session and felt like she back slid. She also had a fall and hurt her knee- d oes have some radiating s/s down her right legs since the fall Objective/Function: Posture: FH, RS- can correct with verbal cues but is unable to maintain. Gait: no deviation noted- good arm swing and trunk rotation. HR/TR: able without UE A. SLS: 20 sec mild hip drop bilateral but no UE A required. ROM: Lumbar: flexion:hands to mid shipley, Extn: WFL, SB: diminished by 25%, Rot: diminished by 25% all with reports of discomfort. Hip/Knee/Ankle: WFL. Strength: Core: fair, Hip: 4+/5 throughout, Knee: 5/5 Ankle: 5/5. Flex: HS: moderate, Gastroc: moderate. Sensation/Reflex: WNL to gross touch bilateral and patella. Special Test: LLD: negative, HANNAH: negative, Pelvic Alignment: WFL, Extn: decreased symptoms, Flexion: no change in symptoms Plan Plan: 01/24/2021: Continue with POC- Ultrasound- and extension based. Extension Bias Ultrasound and Core Strength/stabilization Goals Goal 1:: Patient will be I with HEP and progression Goal Time Frame: 4-6 Weeks Goal 2:: Patient will have no dural signs Goal Time Frame: 4-6 Weeks Goal 3:: Patient will maintain proper posture t/o tx session to demo increased core s/s Goal Time Frame: 4-6 Weeks Anticipated Interventions Patient/Client Instruction: Educate patient on: Benefits of Fitness Program Therapeutic Exercise to Include: Strength training, Endurance training, Coordination, Body mechanics, Postural training, Flexibilty training, Gait and locomotor training, Neuromotor development, Dynamic Lumbar Stabilization, Scapular Strength/Stabilization For the Purpose of:: To improve muscle performance and motor function Please do not hesitate to contact me at [phone] by phone or if you have questions or concerns regarding this new plan of care! Sincerely, Liliya Lew DPT
--- NOTE | 2021-02-17 17:24 | HP.PTDCSUM ---
It has been my pleasure to treat SUE JACK referred by CHAPO Candelaria, with the diagnosis of Left Buttock Pain for a total of 12 visit(s). Discharge Date: Please see the following information for a summary of their discharge status. Subjective: Ready for discharge- getting in the pool Left LB/Buttocl Pain Intensity (Out of 10): 3 % Improvement: 50 Objective/Function: Patient was able to complete without incidence. No edema along lumbar spine today. Patient reports no pain at end of session. Progress as tolerated Goal 1:: Patient will be I with HEP and progression Goal 2:: Patient will have no dural signs Goal 3:: Patient will maintain proper posture t/o tx session to demo increased core s/s Plan: 02/17/2021 Discharge to I HEP and swimming. 01/24/2021: Continue with POC- Ultrasound- and extension based. Extension Bias Ultrasound and Core Strength/stabilization If there are questions or concerns regarding this patient's physical therapy, please feel free to call me at [phone]. Thank you for the referral of this patient. Sincerely, Liliya Lew, DPT Balance/Gait/Functional tests - Balance/Special Test Scores Oswestry Low Back Score: 11
== END 2021-02-17 19:00 | disposition home or self-care (01) ==
LOC: PT 17:00
PROVIDERS: PCP Student in an Organized Health Care Education/Training Program; Referring Provider Physician Assistant; Visit Provider Physician Assistant
DX: M79.18 Myalgia, other site (principal)
CPT/HCPCS: 97035; 97110; 97162; 97164

== ENCOUNTER 2021-08-14 16:25 | Emergency (ER) | payer OTHER, SELFPAY ==
[2021-08-14 16:27] VITALS: BP 150/96; PULSE 84; RESP 12; TEMP 36.6; O2SAT 99; BMI 25.1
--- NOTE | 2021-08-14 17:03 | EDS_ITS ---
HPI History of Present Illness Chief Complaint: Back Informant: patient Onset/Context/Timing Onset: Weeks (1) Context: Gradual Onset Chronic pain exacerbated by: unk Timing: Continuous Quality: Aching Location: Lumbar and Left Leg Current Severity: Severe Maximum Severity: Severe Worsened by: improves with - (sitting) Relieved by: Medications (Tylenol/ibuprofen/tramadol was helping to take the edge off but not today) and - (standing still) Associated Symptoms Associated Symptoms: Tingling Narrative Narrative: Patient presenting with left low back and buttock pain that has been radiating down her left lower extremity for months, she had an MRI within the [facility] system and was referred to Dr. Chad Lopez at [facility], she was diagnosed with ruptured disc pushing on nerves and causing some mild central spinal stenosis, and scheduled for surgery earlier this month but she contracted Covid and the surgery had to be canceled and rescheduled for about 3 weeks from now. In the past week, symptoms have worsened. She usually has regular bowel movements, she has not had one in 2-3 days, although she does not feel the need to have one, and she is having a really difficult time sitting because it hurts so bad. Earlier today, she got herself into a sitting position and was in excruciating pain with it, in order to urinate and was unable to. She presents her history standing, appearing to be in a lot of discomfort. She has some tingling going down her left leg that is not new, no different now. [facility] Medical History (Updated 08/14/21 @ 18:[address] Leo Perry MD) Anxiety Cervicalgia Cholelithiasis IBS (irritable bowel syndrome) Meningioma, spinal Migraine PFO (patent foramen ovale) TMJ (temporomandibular joint disorder) Home Medications topiramate 100 mg PO DAILY 02/26/18 [History Last Taken Unknown] riboflavin (vitamin B2) 5 mg tablet mg PO tab 07/03/18 [History Last Taken Unknown] oxycodone-acetaminophen 1 tab PO Q6H PRN PRN 5 Days #20 tablet 08/14/21 [Rx Last Taken Unknown] prednisone 08/14/21 [History Last Taken Unknown] tramadol mg 08/14/21 [History Last Taken Unknown] Allergy/AdvReac Type Severity Reaction Status Date / Time morphine Allergy TACHYCARDIA Verified 08/14/21 16:27 Family History Father CAD (coronary artery disease) CABG Mother Hypertension Surgical History History of hand surgery History of laminectomy History of tubal ligation Social History Smoking Status: Never smoker ROS ROS ED Constitutional Constitutional ED: Denies chills or fever(s) Gastrointestinal Gastrointestinal: Denies abdominal pain, constipation, fecal incontinence, nausea or vomiting Genitourinary Genitourinary ED: Denies abdominal discomfort or urinary incontinence Musculoskeletal Musculoskeletal: Reports as per HPI and back pain; Denies neck pain Integumentary Denies rash or wounds Neurologic Neurologic: Denies headache(s) or weakness EXAM Physical Exam Const Vital Signs: 08/14/21 16:27 Temperature 98 F Temperature Source Temporal Pulse Rate 84 Respiratory Rate 12 Blood Pressure 150/96 H Blood Pressure Mean 114 Pulse Ox 99 Oxygen Delivery Method Room Air Positive well nourished and well developed General Appearance ED: well developed and NAD HEENT Negative for trauma or tenderness Eyes PERRL and EOMs intact bilaterally Neck full ROM and supple GI normal to inspection, nondistended, normoactive bowel sounds, soft to palpation and non-tender Back/Spine normal to inspection Lumbar Spine / Lower Back: ROM limited Extremity normal to inspection, full ROM and no pedal edema Neuro oriented x3, CN's II-XII intact bilaterally, no focal motor deficits, no sensory deficits noted and gait normal Sensorium / Orientation: alert Motor Exam: strength 5/5 throughout Psych mental status grossly normal and thought process normal Skin no rashes or lesions noted and no wounds MDM MDM MDM Narrative Medical decision making narrative: Patient was given an IM injection of Dilaudid, along with prophylactic Zofran ODT. She feels much better on reevaluation although she is still having the pain she was able to sit and urinate without any difficulty. I do not think this is cauda equina syndrome, I think that she just was limited due to pain in position of sitting which does typically make sciatica worse. I think it be reasonable to increase her analgesia to Percocet, she was advised to avoid taking it and tramadol together, and she may add Tylenol to it as long as she stays under the daily limit of 4000 mg, as well as ibuprofen. She is on prednisone, she started taking it 2 days ago, and I advised her to continue it until finished as prescribed. She is comfortable with that overall plan we discussed reasons to return. Discharge Plan Triage Chief Complaint: Back ED Provider: Leo Perry Dx/Rx/DC Orders Clinical Impression: Acute left-sided back pain with sciatica Instructions: ED Sciatica Prescriptions: New oxycodone-acetaminophen [oxycodone-acetaminophen] 1 TABLET tablet 1 tab PO Q6H PRN PRN (Reason: severe pain (scale score 7-10)) 5 Days Qty: 20 RF: 0 No Action riboflavin (vitamin B2) 5 mg tablet 5 mg tablet PO RF: 0 topiramate 50 capsule,extended release 24hr 100 mg PO DAILY RF: 0 prednisone 10 mg tablet RF: 0 tramadol 50 mg tablet RF: 0 Primary Care Provider: Abbe Cabezas Referrals: Abbe Cabezas, [Primary Care Provider] - 3-5 Days if not improving (or Dr. Lopez) Activity Restrictions/Additional Instructions: May take Tylenol in addition to Percocet, but make sure you do not go over 4000 mg of acetaminophen per 24 hours. It is okay to take tramadol, but make sure you wait 4-6 hours before taking a Percocet if you do. Disposition Disposition: Home, Self Care
[2021-08-14] MEDS: Ondansetron ODT 4 MG Tablet 8 MG PO (17:12)
[2021-08-14] MEDS: HYDROmorphone 1 MG/ML Syringe IM (17:13)
--- NOTE | 2021-08-14 19:40 | ED.RN ---
PT ATTEMPTED TO HAVE PERCOCET RX FILLED BY INPATIENT PHARMACY MEDS TO BED. PHARMACY CALLED BACK, STATES PT'S INSURANCE WOULD NOT APPROVE RX PT HAS MET MAXIMUM ALLOWABLE AMOUNT OF PERCOCET AT CURRENT TIME. PT NOTIFIED, ADAMANTLY DENIES EVER HAVING PERCOCET RX FILLED. NOTIFIED, STATES HE CAN GIVE ANOTHER DOSE OF MEDS HERE IN DEPARTMENT, BUT HANDS ARE TIED IF PHARMACY UNABLE TO FILL RX. PT STATES THE DILAUDID INJECTIONS ARE DOING NOTHING FOR MY PAIN, I REALLY NEED THE PERCOCET, BUT THEN STATES THE DILAUDID REALLY IS HELPING, I WANT TO BE ADMITTED SO I CAN MAKE IT THROUGH THE NIGHT. PT ADVISED ED MD IS WILLING TO DISCUSS ADMISSION WITH HOSPITALIST, BUT PT ISN'T GUARANTEED ADMISSION AT THIS TIME, WOULD HAVE TO WAIT FOR HOSPITALIST DECISION. PT STATES SHE DOES NOT WANT TO WAIT, STATES I'LL FIND SOMEBODY TO GIVE ME PERCOCET IN THE MORNING. ENCOURAGED PT TO CONTACT PCP OR SURGEON FIRST THING IN THE MORNING, INSTRUCTED PT TO RETURN IF NEEDED. PT VOICED UNDERSTANDING.
== END 2021-08-14 18:30 | disposition home or self-care (01) ==
PROVIDERS: Emergency Provider Emergency Medicine; PCP Student in an Organized Health Care Education/Training Program; Visit Provider Emergency Medicine
DX: M54.32 Sciatica, left side (principal); Z86.16 Personal history of COVID-19
CPT/HCPCS: 96372; 99283

== ENCOUNTER 2022-02-24 07:00 | Outpatient (RCR) | payer OTHER, SELFPAY ==
--- NOTE | 2021-11-09 13:28 | HP.PTEVAL_ITS ---
Patient's Visit Information SUE JACK is a 56 year old F referred to Physical Therapy by REJI Scott with a diagnosis of EXTREME LATERAL INTERBODY FUSION, L4-L5. Date of Evaluation: 11/09/21 Physical Therapist: Cleo Murray PT, Cert MDT - Visit Plan Frequency: 2-3x /Week Duration: 6-8 WKS Plan: LEFT HIP STM. POSTURE CORRECTION/STRENGTHENING, INSTRUCTION IN APPROPRIATE BODY MECHANICS AND ACTIVITY MODIFICATIONS. DLS STARTING WITH A NEUTRAL SPINE PROGRESSING ROM TOLERATED. XIOMARA LE ROM, STRETCHING AND STRENGTHENING. HEP INSTRUCTION. CONSIDER AQUATIC THERAPY IN THE FUTURE NEEDED AND WITH APPROVAL FROM SURGEON. - Subjective SURGICAL HISTORY: DR. ARMANI BANKS - ANTERIOR: EXTREME LATERAL INTERBODY FUSIONM L4-L5, MODULUS 3D NUVASIVE CAGE, 10-DEGREE LORDOSIS. POSTERIOR: POSTERIOR PERCUTANEOUS L L4-L5 NUVASIVE RELINE INSTRUMENTATION UTILIZING 6.5 X 45 MM LENGTH SCREWS AT L4 AND L5 AND CONNECRTED WITH A 45 MM LENGTH 5.5 MM DIAMETER NUVASIVE RELINE ABDIAS PERCUTANEOUS FIXATION ON 09/05/21. SOCIAL: LIVES WITH AND 2 KIDS. 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 TENTATIVE RETURN TO WORK DATE 11/18/21. 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 Present symptoms: LOW BACK SORENESS. NO RIGHT LE SX'S. L BUTTOCK PAIN. L THIGH PAIN. DENIES XIOMARA LE NUMBNESS AND TINGLING. *COULD NOT STRAIGHTEN L LEG AFTER SURGERY AND HAS TERRIBLE PAIN IN LEFT HIP REGION*. Present since: LAST SPRING 2020. Pain Scale: WORST 4/10, LEAST 0/10. Currently: 0/10 - improving. Commenced as a result of: NO APPARENT REASON OTHER THAN CARRYING A LOT UP AND DOWN STEPS. Symptoms at onset: SHOCKIING PAIN DOWN LLE ROLLING OVER IN BED. Worse: RIDING IN THE CAR TO [place], GETTING OUT OF CAR, BENDING DOWN TO CHIEF LIBRARIAN EXTENSION DEPARTMENT ANYTHING EVEN IF LIGHT EVEN THOUGH TRYING TO DO IT CORRECTLY, *NIGHT TIME*. BACK HURTS AT NIGHT. SITTING ON THE TOLIET - SO MUCH PAIN. Better: ICE AND SUPINE WITH LEGS UP OR SDLY, TYLONOL, POSTURE CONTROL. Disturbed sleep: YES. Previous history/Previous treatment: PHYSICAL THERAPY, CHIROPRACTOR, NO INJECTIONS. Treatment this episode: SURGERY. Coughing/sneezing/straining: POSITIVE. Gait: DECREASED STRIDE LENGTH AND INCREASED TRUNK FLEXION WITH PROLONGED WALKING. Difficulty initiating urination: NO. BOWEL OR BLADDER DYSFUNCTION: NO. Accidents: NO. Unexplained weight loss: NO. Imaging: X-RAY OF LUMBAR SPINE YESTERDAY - REPORTS SHE WAS TOLD IT LOOKS REALLY GOOD. PMH/Recent major surgery: 1995 BENIGN REMOVED FROM SPINE IN NECK. MIGRAINES. OTHER: STARTED PT ABOUT 4 WEEKS AFTER SURGERY AT [facility] IN [place] UNTIL 11/07/21 (2 DAYS AGO) X 9 VISITS. REPORTS SHE DIDN'T HAVE GOOD CONTINUITY OF CARE AND SHE DID NOT HAVE A GOOD UNDERSTANDING OF WHAT SHE SHOULD BE DOING. REPORTS SHE SAW ABOUT 5 DIFFERENT PEOPLE. REPORTS ONE THERAPIST WORKED HER SO HARD THAT SHE COULDN'T WALK FOR 2 DAYS AFTER. PHYSICIAN RESTRICTIONS: NO HORSE BACK RIDING OR LAWN MOWING YET. LIGHT LIFTING ONLY. - Objective Sitting/Standing Posture: POOR. REDUCED LORDOSIS AND MILD INCREASED TRUNK FLEXION. Active Correction of posture: NE. Other Observations: INDEP GAIT INTO PT. Sensory deficit: XIOMARA LE LIGHT TOUCH SENSATION GROSSLY INTACT AND SYMMETRICAL. ROM deficit: TIGHT XIOMARA LE HIP IR'S, HIP FLEXORS, HS'S AND GASTROC SOLEUS COMPLEX'S. Motor deficit: XIOMARA HIPS 4-/5, KNEE'S: R 5/5, L 4/5, ANKLES 5/5. Dural Signs: NEGATIVE XIOMARA LE DURAL TESTING. Lumbar mvmt loss: flex - MOD. ext - CHRIS. R SG - CHRIS. L SG - CHRIS. PATIENT C/O MILD INCREASED L HIP PAIN WITH LEFT SG TESTING. Core strength: POOR. Palpation: TENDERNESS WITH PALPATION OF LEFT LATERAL AND ANTERIOR ILIAC CREST REGIONS AND TFL REGION. TREATMENT: NEUROMUSCULAR REEDUCATION - RETRAINING OF MVMT AND POSTURE FOR SITTING, LYING AND STANDING ACTIVITIES - Balance/Special Test Scores Oswestry Low Back Score: 15 - Goals Goal 1:: DECREASE C/O LOW BACK AND L LE SX'S. Goal Time Frame: 4-6 Weeks Goal 2:: IMPROVE LIFTING, SITTING, SLEEP, SOCIAL LIFE, TRAVEL AND HOMEMAKING FUNCTION Goal Time Frame: 4-6 Weeks Goal 3:: INSTRUCT IN PROPHYLAXIS Goal Time Frame: 4-6 Weeks - Anticipated Interventions Patient/Client Instruction: Educate patient on: Condition, Plan of Care, Risk Factors For the Purpose of:: To improve self management Therapeutic Exercise to Include: Strength training, Endurance training, Body mechanics, Postural training, Flexibilty training, Neuromotor development, In an aquatic setting, Dynamic Lumbar Stabilization For the Purpose of:: To decrease pain, To increase ROM, To improve muscle performance and motor function, To increase tolerance to activity/condition/position, To improve ability of physical actions for home/community/work/leisure Manual Therapy Techniques to Include: Soft tissue mobilization For the Purpose of:: To decrease pain, To improve nutrient delivery to tissue Thank you for the opportunity to evaluate your patient. For Medicare and Medicare HMO plans, please review the plan of care and approve it. It will need to be FAXED BACK to us at [phone] for Medicare purposes. For Medicare only, by signing this I certify the plan of care. Please let me know if there are questions or concerns regarding this plan of care. Physician Signature: Date:
--- NOTE | 2022-02-24 08:03 | HP.PTDCSUM ---
It has been my pleasure to treat SUE JACK referred by Roxie Galvan, REJI, with the diagnosis of EXTREME LATERAL INTERBODY FUSION, L4-L5 for a total of 27 visit(s). Discharge Date: Please see the following information for a summary of their discharge status. Subjective: PATIENT TEARFUL AT BEGINNING OF SESSION TODAY STATING SHE HAD A REGRESSION AGAIN. STATES SHE HAS HAD A LOT OF PAIN AGAIN THIS WEEK AND SHE CAN'T PIN POINT WHAT SHE DID. SHE REPORTS THAT SUNDAY NIGHT THROUGH THE NIGHT HER PAIN FLARED UP IN HER LEFT BUTTOCK. UP TO 3/10 L BUTTOCK PAIN AT ONE POINT. NOT HURTING THERE NOW THOUGH. TRIED ADVIL SINCE GIVEN THE OK BUT DIDN'T HELP. HAS HAD TO DECREASE TYLONOL DUE TO MIGRAINES. MY BACK GETS A LITTLE BIT SORE TOO BUT I DON'T REALLY WORRY TOO MUCH ABOUT THAT. STATES SHE DOESN'T WORRY ABOUT HER LEFT HIP PAIN MUCH ANYMORE EITHER BUT LEFT BUTTOCK PAIN CONCERNS HER BECAUSE SHE HASN'T HAD IT SINCE NOVEMBER. STATES THE ONLY THING SHE CAN THINIK OF THAT FLARED IT WAS BENDING AND CLEANING. ALSO REPORTS PAIN DOWN THE OUTSIDE OF HER L THINGH AND LEG AND L FOOT TINGLING THIS MORNING FOR THE FIRST TIME IN A LONG TIME BUT IT IS GONE NOW. Patient reports follow up with Surgeon last week. He said it would take 1.5-2 years to feel fully recovered. Returning to him in August 2022. No lifting >25-30 lbs. No bending, lifting, twisting at this time. Going to pool on her own 2x/week. said the hip pain is normal because, That's the way we went in. Will resolve itself with time. 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 Patient reports she is going to show her horse in a horse show this weekend in [place]. Patient reports she also had follow up with Dr. Cabezas too. PATIENT REQUESTING REVIEW OF HEP TODAY. PATIENT REPORTS SHE WISHES THEIR WAS A SPINE SUPPORT GROUP FOR HER (THIS PT RECOMMENDED PATIENT DISCUSS SUPPORT GROUPS FURTHER WITH HER PCP). PATIENT REPORTS DR. BANKS DID MORE IMAGING OF HER NECK AND HE FELT IT LOOKED PRETTY GOOD AT THIS POINT. ALSO DID NCT AND DX'D WITH R CARPAL TUNNEL SYNDROME. PATIENT REPORTS SHE NOW FEELS READY TO BE DISCHARGE TO INDEP EX. L BUTTOCK Pain Intensity (Out of 10): 2 MID BACK Pain Intensity (Out of 10): 0 L LOW BACK Pain Intensity (Out of 10): 1 L HIP Pain Intensity (Out of 10): 0 LLE Pain Intensity (Out of 10): 0 HEADACHE Pain Intensity (Out of 10): 0 % Improvement: 70 Objective/Function: PATIENT WAS SEEN TODAY FOR RE-ASSESSMENT OF PROGRESS TOWARD THE SET PT GOALS AND THE NEED FOR FURTHER PHYSICAL THERAPY VS READINESS FOR DISCHARGE. PATIENT IS INDEP WITH A POOL EX PROGRAM AT HER [place] AND REPORTS SHE THINKS SHE WILL JOIN [employer] IN THE WINTER TO CONTINUE WATER EX. 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 INSTRUCTED IN AND ADDED STANDING XIOMARA HIP IR STRETCHING TO HEP. WRITTEN EX INSTRUCTION PROVIDED. UPON EXAM TODAY: 5/5 XIOMARA LE STRENGTH WITH MMT'ING TODAY EXCEPT R HIP 4/5 AND LEFT 4-/5. CORE STRENGTH: FAIR. LUMBAR MVMT LOSS: FLEX - MOD, EXT - CHRIS, R SG - CHRIS, L SG - MOD. PALPATION: TENDERNESS ALONG LEFT LATERAL ILIAC CREST, LEFT ABDOMINAL WALL ANTERIOR TO INCISION BUT NOT OVER GREATER TROCH REGION. PATIENT IS APPROPRIATE FOR DISCHARGE TO [facility] EX AND SHE IS AGREEABLE. Goal 1:: DECREASE C/O LOW BACK AND L LE SX'S. Goal Progress: Goal Met Goal 2:: IMPROVE LIFTING, SITTING, SLEEP, SOCIAL LIFE, TRAVEL AND HOMEMAKING FUNCTION Goal Progress: Goal Met Goal 3:: INSTRUCT IN PROPHYLAXIS Goal Progress: Goal Met Plan: D/C TO INDEP POOL EX AND HEP. PATIENT AGREEABLE. If there are questions or concerns regarding this patient's physical therapy, please feel free to call me at [phone]. Thank you for the referral of this patient. Sincerely, Cleo Murray, PT, Cert MDT Balance/Gait/Functional tests - Balance/Special Test Scores Oswestry Low Back Score: 13
== END 2022-02-24 09:05 | disposition home or self-care (01) ==
LOC: PT 07:00
PROVIDERS: PCP Student in an Organized Health Care Education/Training Program; Referring Provider Nurse Practitioner Acute Care; Visit Provider Nurse Practitioner Acute Care
DX: Z98.1 Arthrodesis status (principal)
CPT/HCPCS: 97035; 97110; 97112; 97113; 97162; 97164; 97530

== ENCOUNTER 2022-07-04 16:00 | Outpatient (RCR) | payer OTHER, SELFPAY ==
--- NOTE | 2022-04-19 07:44 | HP.PTEVAL_ITS ---
Patient's Visit Information SUE JACK is a 57 year old F referred to Physical Therapy by REJI Scott with a diagnosis of Back Surgery. Date of Evaluation: 04/19/22 Physical Therapist: Liliya Lew DPT - Visit Plan Frequency: 3x /Week Duration: 4 Weeks Plan: 2x a week in the pool for 4 weeks to refresh HEP and decrease pain- 1x a week for DN and manual to lumbar spine per MD recommendation - Subjective Continuation of last chart- halley schofield Has a massive back surgery Sep 05 2021- did extensive therapy both water and land- she made progress in water and was discharged in February. In Mar she started having weird back symptoms- she has pain in the SI joint and radiates down her left leg. She called her surgeon who told her to come to PT for dry needling and manual therapy and then follow up with them the 27 of April. She is currently doing HEP (hip abduction standing, marching, hamstring curls, HR/TR, supine stretches, hamstring stretch- SB squats on the wall). Worst: 3/10 Agg: bending forwards Best: .5/10 Eases: exercises, ice, heat. At lunch she takes 10 min and does her stretches. She feels that the pain was worse and in the last couple of days getting better- as she has been getting back into her exercises. 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 Does not feel that her ROM and strength has changed just the pain. She is planning to get back into the water. - Objective Posture: FH, RS- can correct but does not maintain- guarded. Gait: no deviation noted- good arm swing and trunk rotation. ROM: Lumbar: flexion: hands to knees, Extn: neutral, SB: diminished by 50%, Rot: diminished by 50%- does have extensive hardwear from previous back surgery. Hip/Knee/Ankle: WFL. HR/TR: able without UE A. SLS: 15 sec without LOB. Strength: Core: fair minus, Left Hip: flexion: 4-/5, Abd: 4/5, IR/ER: 4-/5, Extn: 4/5, Right: 4+/5 throughout, Knee: Left: Extn: 4+/5, Flexion: 4-/5, Right: 5/5, Ankle: 5/5 bilateral. Flex: HS: severe, Gastroc: severe. Palpation: tender along paraspinals bilateral - Goals Goal 1:: Patient will be I with HEP and progression Goal Time Frame: 4-6 Weeks Goal 2:: Patient will report 80% improvement Goal Time Frame: 4-6 Weeks Goal 3:: Patient will maintain proper posture t/o tx session to demo increased core s/s Goal Time Frame: 4-6 Weeks - Rehabilitation Potential Physical Therapy Diagnosis: Patient presents with hypomobility- she has decreased LE and core strength/stabilization leading to poor posture and i ncreased pain with ADL's. Rehabilitation Potential: Fair - Anticipated Interventions Patient/Client Instruction: Educate patient on: Benefits of Fitness Program Therapeutic Exercise to Include: Strength training, Endurance training, Balance training, Coordination, Agility training, Body mechanics, Postural training, Flexibilty training, Gait and locomotor training, Neuromotor development, In an aquatic setting, Dynamic Lumbar Stabilization, Scapular Strength/Stabilization Manual Therapy Techniques to Include: Functional dry needling, Soft tissue mobilization TENS: Yes Cryotherapy (ice pack, ice massage): Yes Thermo therapy (hot pack): Yes Ultrasound (thermal/non thermal): No Thank you for the opportunity to evaluate your patient. For Medicare and Medicare HMO plans, please review the plan of care and approve it. It will need to be FAXED BACK to us at [phone] for Medicare purposes. For Medicare only, by signing this I certify the plan of care. Please let me know if there are questions or concerns regarding this plan of care. Physician Signature: Date:
--- NOTE | 2022-10-09 07:33 | HP.PT.NRP ---
SUE JACK was seen in my office for initial evaluation on 04/19/22. The following Plan of Care was established for this patient: Initial Frequency: 3x /Week Initial Duration: 4 Weeks Patient/Client Instruction: Educate patient on: Benefits of Fitness Program Therapeutic Exercise to Include: Strength training, Endurance training, Balance training, Coordination, Agility training, Body mechanics, Postural training, Flexibilty training, Gait and locomotor training, Neuromotor development, In an aquatic setting, Dynamic Lumbar Stabilization, Scapular Strength/Stabilization Manual Therapy Techniques to Include: Functional dry needling, Soft tissue mobilization TENS: Yes Cryotherapy (ice pack, ice massage): Yes Thermo therapy (hot pack): Yes Ultrasound (thermal/non thermal): No This patient was last seen in our office . Pertinent comments regarding their Physical therapy will appear below: Patient has LE fracture- will d/c this chart. At this point I will be discontinuing this patient from physical therapy. I would be happy to see this patient again in the future if found appropriate by the physician. Thank you! Liliya Lew DPT
== END 2022-07-04 19:00 | disposition home or self-care (01) ==
LOC: PT 16:00
PROVIDERS: PCP Student in an Organized Health Care Education/Training Program; Referring Provider Nurse Practitioner Acute Care; Visit Provider Nurse Practitioner Acute Care
DX: M48.062 Spinal stenosis, lumbar region with neurogenic claudication; Z98.1 Arthrodesis status
CPT/HCPCS: 97113; 97140; 97164

== ENCOUNTER 2022-10-12 07:30 | Outpatient (RCR) | payer OTHER, SELFPAY ==
--- NOTE | 2022-08-23 08:00 | HP.PTEVAL ---
Patient's Visit Information SUE JACK is a 57 year old F referred to Physical Therapy by PAT ALBRIGHT with a diagnosis of ORIF Right Ankle and Lumbar. Date of Evaluation: 08/23/22 Physical Therapist: Liliya Lew DPT - Visit Plan Frequency: 2x /Week Duration: 4 Weeks Plan: Aquatics 2x a week for ankle/lumbar spine, 1x a week for ankle and DN to lumbar spine (spine is continuation from previous per MD recommendation). HEP Given IE: weight shift, HR/TR, ankle ROM, towel gastroc stretch - Subjective Patient reports that she fell Jul 10- horse spooked and kicked her- fractured right malleolus and fibula. Surgery ORIF Jul [address] Hayes. She has been NWB since Sunday. She very cautious and followed recommendations closely. She is now in an ankle brace that she wears all the time and is only partially sleeping in int. She reports that she feels she over did a little bit yesterday. She went to dinner last night and had to put it up. Worst: 4/10 Agg: being up on it and hanging down. Best: 0/10 Eases: elevation and ice. Pain is located in her foot and in the gastroc- the two little toes and then down the lateral aspect of the foot. Describes the pain as dull and achy. She gets a pumping feeling through it. She does have some N/T in the toes. Sleep: not too bad- only a little bit. 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 Her back is doing okay, she has a pinch in her buttock- EMG had them concerned so they did an MRI and CT- mild stenosis and looks like her device is starting to adhere- will wait until Sep 05 to go over- do dry needling and talk to PT about what you need. She feels her back is staying the same. She is unsure if she is cleared to go back into the pool. PMHX/Meds: no changes since last time - Objective Posture: fair throughout IE. Gait: antalgic- axillary crutches- dec WB through right LE- ankle brace. Girth: Figure 8: 50 cm Mets: 22 cm Mall:24.5 cm. ROM: DF: neutral, PF: 30 degrees, Inv: 30 degrees, Ever: 10 deg. Strength: Core: fair, Hip: 4/5 throughout, Knee: 5/5, Ankle: 4/5 in available range. Flex: Gastroc: severe, HS: moderate. Palpation: tender throughout ankle and lateral foot. Observation: incisions well healed. SLS: weight shift. HR/TR: able with weight shifted to the left. Stairs: asc/desc 8 non recip - Balance/Special Test Scores Lower Extremity Functional Score: 18 - Goals Goal 1:: Patient will be I with HEP and progression Goal Time Frame: 6-8 Weeks Goal 2:: Patient will ambulate >300 feet with a normalized gait pattern and no AD Goal Time Frame: 6-8 Weeks Goal 3:: Patient will asc/desc 8 stairs recip with 1 HR Goal Time Frame: 6-8 Weeks Goal 4:: Patient will report 80% improvement Goal Time Frame: 6-8 Weeks - Rehabilitation Potential Physical Therapy Diagnosis: Patient presents with hypomobility- she has decreased LE and core strength/stabilization, flex, ROM, proprioception and functional mobility leading to abnormal gait and increased pain with ADL's. Rehabilitation Potential: Fair - Anticipated Interventions Patient/Client Instruction: Educate patient on: Benefits of Fitness Program Therapeutic Exercise to Include: Strength training, Endurance training, Balance training, Coordination, Agility training, Body mechanics, Postural training, Flexibilty training, Gait and locomotor training, Neuromotor development, In an aquatic setting, Dynamic Lumbar Stabilization, Scapular Strength/Stabilization For the Purpose of:: To improve muscle performance and motor function TENS: Yes Cryotherapy (ice pack, ice massage): Yes Thermo therapy (hot pack): Yes Ultrasound (thermal/non thermal): Yes Thank you for the opportunity to evaluate your patient. For Medicare and Medicare HMO plans, please review the plan of care and approve it. It will need to be FAXED BACK to us at [phone] for Medicare purposes. For Medicare only, by signing this I certify the plan of care. Please let me know if there are questions or concerns regarding this plan of care. Physician Signature: Date:
--- NOTE | 2022-09-21 08:30 | HP.PTREVAL ---
PAT ALBRIGHT, It has been my pleasure to treat SUE JACK over the last 12 visits for ORIF Right Ankle and Lumbar. Please see the progress note below for an update on the physical therapy plan of care! 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 Lots of stairs at work- can sit/stand throughout the day. The ankle is doing better- she has been off her feet due to being sick. The ankle is pretty tight today. She is still challenged with HR/TR. She is planning on wearing the ankle brace. She is wearing the ankle brace when she leaves the house but not inside. Worst: 09/22 in the last week. Objective/Function: Posture: fair throughout IE. Gait: ankle brace- slightly antalgic- decreased stance and heel/toe pattern Girth: Figure 8: 48.5 cm Mets: 21cm Mall:25 cm. ROM: DF: 5, PF: 40 degrees, Inv: 30 degrees, Ever: 10 deg. Strength: Core: fair, Hip: 4/5 throughout, Knee: 5/5, Ankle: 4+/5 in available range. Flex: Gastroc: severe, HS: moderate. Palpation: tender throughout ankle and lateral foot. Observation: incisions well healed. SLS: 3-5 sec. HR/TR: able with weight shifted to the left. Stairs: asc/desc 8 recip with 1 HR Plan Plan: 09/21/22: Aquatics 2x a week for 3 weeks with her returning to work- focus on ROM, strength, functional mobility and pain mgmt. *Aquatics 2x a week for ankle/lumbar spine, 1x a week for ankle and DN to lumbar spine (spine is continuation from previous per MD recommendation). Balance/Gait/Functional tests - Balance/Special Test Scores Lower Extremity Functional Score: 47 Goals Goal 1:: Patient will be I with HEP and progression Goal Time Frame: 6-8 Weeks Goal Progress: Progressing Goal 2:: Patient will ambulate >300 feet with a normalized gait pattern and no AD Goal Time Frame: 6-8 Weeks Goal Progress: Progressing Goal 3:: Patient will asc/desc 8 stairs recip with 1 HR Goal Time Frame: 6-8 Weeks Goal Progress: Progressing Goal 4:: Patient will report 80% improvement Goal Time Frame: 6-8 Weeks Goal Progress: Progressing Anticipated Interventions Patient/Client Instruction: Educate patient on: Benefits of Fitness Program Therapeutic Exercise to Include: Strength training, Endurance training, Balance training, Coordination, Agility training, Body mechanics, Postural training, Flexibilty training, Gait and locomotor training, Neuromotor development, In an aquatic setting, Dynamic Lumbar Stabilization, Scapular Strength/Stabilization For the Purpose of:: To improve muscle performance and motor function TENS: Yes Cryotherapy (ice pack, ice massage): Yes Thermo therapy (hot pack): Yes Ultrasound (thermal/non thermal): Yes Please do not hesitate to contact me at [phone] by phone or if you have questions or concerns regarding this new plan of care! Sincerely, Liliya Lew DPT
--- NOTE | 2022-10-12 08:28 | HP.PTDCSUM_ITS ---
It has been my pleasure to treat SUE JACK referred by PAT ALBRIGHT, with the diagnosis of ORIF Right Ankle and Lumbar for a total of 19 visit(s). Discharge Date: Please see the following information for a summary of their discharge status. Subjective: She starts out really good in the morning but by the end of the day she is pretty sore. She has good days and bad days. Feels that the ankle is going to explode- throughout the ankle. She saw the MD on the he did not have a lot to say- just told her not to break it again and did not have her come back. She is not wearing the brace and wearing a sleeve and feels much better in it. R ankle Pain Intensity (Out of 10): 2 % Improvement: 75 Objective/Function: Posture: fair throughout IE. Gait: sleeve- no brace- decreased stance and heel/toe pattern but much improved. 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 ROM: DF: 10, PF: 60 degrees, Inv: 30 degrees, Ever: 10 deg. Strength: Core: fair, Hip: 4+/5 throughout, Knee: 5/5, Ankle: 4+/5 in available range. Flex: Gastroc: severe, HS: moderate. Palpation: tender throughout ankle and lateral foot. Observation: incisions well healed. SLS:15 sec. HR/TR: able with weight shifted to the left. Stairs: asc/desc 8 recip with 1 HR Goal 1:: Patient will be I with HEP and progression Goal Progress: Goal Met Goal 2:: Patient will ambulate >300 feet with a normalized gait pattern and no AD Goal Progress: Progressing Goal 3:: Patient will asc/desc 8 stairs recip with 1 HR Goal Progress: Progressing Goal 4:: Patient will report 80% improvement Goal Progress: Progressing Plan: 10/12/22: Discharge to I HEP- encouraged to ask questions if they arise. 09/21/22: Aquatics 2x a week for 3 weeks with her returning to work- focus on ROM, strength, functional mobility and pain mgmt. *Aquatics 2x a week for ankle/lumbar spine, 1x a week for ankle and DN to lumbar spine (spine is continuation from previous per MD recommendation). If there are questions or concerns regarding this patient's physical therapy, please feel free to call me at [phone]. Thank you for the referral of this patient. Sincerely, Liliya Lew, DPT Balance/Gait/Functional tests - Balance/Special Test Scores Lower Extremity Functional Score: 51
== END 2022-10-12 09:58 | disposition home or self-care (01) ==
LOC: PT 07:30
PROVIDERS: PCP Student in an Organized Health Care Education/Training Program
DX: S82.841D Displaced bimalleolar fracture of right lower leg, subsequent encounter for closed fracture with routine healing (principal); Y93.52 Activity, horseback riding; M43.16 Spondylolisthesis, lumbar region; Z98.1 Arthrodesis status
CPT/HCPCS: 97110; 97113; 97162; 97164

== ENCOUNTER 2023-06-28 07:30 | Outpatient (RCR) | payer OTHER, SELFPAY ==
--- NOTE | 2023-01-12 13:09 | HP.PTEVAL ---
Patient's Visit Information Visit Information Visit Information: SUE JACK is a 57 year old F referred to Physical Therapy by PAT CHILDRESS with a diagnosis of R internal fixation of malleolus and fibula. Date of Evaluation: 01/02/23 Physical Therapist: Fabrice Villatoro DPT Visit Plan Frequency: 2x /Week Duration: 4 Weeks Plan: Start with end range DF stretching, ankle mobs, calf strengthening. Subjective Subjective: Pt. is here today for her initial evaluation with diagnosis of R internal fixation of malleolus and fibula. Pt. is ~5 months of over surgery, but is still having some issues with walking, and at nights. She reports continued intermittent swelling as well. She has increased issues with prolonged walking and standing. Pt. denies N/T in either LE. Pt. has been trying to do more exercises at home and in pool. She reports stiffness as well with walking and standing activities. She has a history of back surgery as well. Pt. is hopeful to get back to all reactional and work activities without limitations. Pain R ankle: Pain Intensity (Out of 10): 1 Pain Intensity Range: 0 and 4 Objective Objective: POSTURE: pt. has good posture in stance. Pt. has normal equal wt. shift between BLEs. PALPATION: Pt. has well healed incision, pt. has no signs of infection or DVT. pt. has some tenderness at achilles and calf. NEURO: normal throughout BLEs. ROM: R ankle: DF 8deg, PF 38deg, INV 8deg, EVR 7deg. PROM: DF 10deg, PF 41deg, INV 10deg, EVR 10deg. Pt. has tight B HS as well. MMT: RLE: ankle: DF 5-/5, PF 5-/5, INV 5-/5, EVR 5-/5. 5/5 throughout the rest of her RLE. L ankle 5/5 throughout. GAIT: Pt. has fairly normal gait pattern. Slight early heel off during pre swing. No major pain with gait this date. STAIRS: pt. ascends without issues. Early heel off during R stance phase, mild increase in symptoms. Balance/Special Test Scores Lower Extremity Functional Score: 32 Goals Goal 1:: LTG: pt. to be I with HEP. Goal Time Frame: 4-6 Weeks Goal 2:: LTG: Pt. to be able to walk throughout her work day without increase in symptoms. Goal Time Frame: 4-6 Weeks Goal 3:: LTG: Pt. to have increased R ankle ROM symmetrical to L side. Goal Time Frame: 4-6 Weeks Goal 4:: LTG: pt. to complete all work and recreational activities without limitations. Goal Time Frame: 4-6 Weeks Rehabilitation Potential Physical Therapy Diagnosis: Pt. has is S/P 4-5 months of a R internal fixation of malleolus and fibula. Pt. continues to have some difficulty with full R ankle ROM, mostly into DF. Pt. would benefit from PT to work on her end range of motion progressing to all functional activities without limitations. Rehabilitation Potential: Excellent Anticipated Interventions Patient/Client Instruction: Educate patient on: Condition, Plan of Care, Risk Factors and Benefits of Fitness Program For the Purpose of:: To foster healthy habits, To improve decision making, To facilitate caregiver knowledge, To improve self management, To prevent re-injury and To improve ability to perform tasks related to life management Therapeutic Exercise to Include: Strength training, Power training, Endurance training, Body mechanics, Postural training, Flexibilty training, Gait and locomotor training, Passive ROM and Active ROM For the Purpose of:: To decrease pain, To increase ROM, To improve nutrient delivery to tissue, To increase oxygenation perfusion, To improve gait and locomotor functions, To improve health of tissue, To decrease soft tissue restriction and To increase flexibility/ROM Text: Thank you for the opportunity to evaluate your patient. For Medicare and Medicare HMO plans, please review the plan of care and approve it. It will need to be FAXED BACK to us at [phone] for Medicare purposes. For Medicare only, by signing this I certify the plan of care. Please let me know if there are questions or concerns regarding this plan of care. Physician Signature: Date:
--- NOTE | 2023-02-05 11:59 | HP.PTDCSUM ---
Discharge Summary D/C summary: It has been my pleasure to treat SUE JACK referred by PAT CHILDRESS, with the diagnosis of R internal fixation of malleolus and fibula for a total of 6 visit(s). Discharge Date: 02/05/23 Please see the following information for a summary of their discharge status. Subjective Subjective: Pt. reports overall doing well with her ankle. Pt. reports some tightness in the AMs that last for a few hours. Pt. reports being HEP compliant. No pain currently. Pain R ankle: Pain Intensity (Out of 10): 0 L buttock: Pain Intensity (Out of 10): 0 Overall Improvement % Improvement: 90 Objective Objective/Function: ROM: R ankle: DF 14deg, PF 38deg. INV 12deg, EVR 10deg. MMT: 5/5 throughout Tenderness at calf, but no pain with rest of motions. gait: pt. has pretty normal gait pattern Pt. does have some increased LBP recently, was check out by surgeon who reports that she just inflamed it, but all the hardware is in place. At this point in time Sue's ankle is doing well and I am going to DC her back to HEP to continue to work on strengthening and ROM. Goals Goal 1:: LTG: pt. to be I with HEP. Goal Progress: Goal Met Goal 2:: LTG: Pt. to be able to walk throughout her work day without increase in symptoms. Goal Progress: Goal Met Goal 3:: LTG: Pt. to have increased R ankle ROM symmetrical to L side. Goal Progress: Progressing Goal 4:: LTG: pt. to complete all work and recreational activities without limitations. Goal Progress: Goal Met Plan Plan: DC to HEP D/C Information Discharge Comments: Pt. to be DC to HEP. Pt. is overall doing well. She does have some back pain and her back surgeon and he would like her to work on calming down her symptoms. Pt. will be DC from PT for her ankle and I will assess her for her back. d/c sentence: If there are questions or concerns regarding this patient's physical therapy, please feel free to call me at [phone]. Thank you for the referral of this patient. Sincerely, Fabrice Ricci Sipos, DPT Balance/Gait/Functional tests Balance/Special Test Scores Lower Extremity Functional Score: 58
--- NOTE | 2023-03-21 11:56 | HP.PTRE(2)_ITS ---
Re-Evaluation Intro: PAT CHILDRESS, It has been my pleasure to treat SUE JACK over the last 1 visits for History of lumbar fusion. Please see the progress note below for an update on the physical therapy plan of care! Plan Plan Plan: Start with manual and DN to lumbar spine. Add in stretching and lumbar ROM as tolerated. Progress as tolerated. Goals Goals Goal 1:: LTG: Pt. to be I with HEP. Goal Time Frame: 4-6 Weeks Goal 2:: LTG: Pt. to have full lumbar ROM without increase in symptoms. Goal Time Frame: 4-6 Weeks Goal 3:: STG: Pt. to be able to ambulate with normal arm swing and without guarded posture. Goal Time Frame: 2-4 Weeks Goal 4:: LTG: pt. to complete all work and recreational activities without increase in lumbar spine symptoms. Goal Time Frame: 4-6 Weeks Anticipated Interventions Anticipated Interventions Patient/Client Instruction: Educate patient on: Condition, Plan of Care, Risk Factors and Benefits of Fitness Program For the Purpose of:: To improve decision making, To facilitate caregiver knowledge, To improve self management, To prevent re-injury and To improve a bility to perform tasks related to life management Therapeutic Exercise to Include: Strength training, Power training, Passive ROM, Active ROM, Dynamic Lumbar Stabilization and Isaac Exercises For the Purpose of:: To decrease pain, To increase ROM, To improve nutrient delivery to tissue, To improve muscle performance and motor function, To decreas e soft tissue restriction and To increase flexibility/ROM Manual Therapy Techniques to Include: Functional dry needling and Soft tissue mobilization For the Purpose of:: To decrease pain, To improve nutrient delivery to tissue, To increase oxygenation perfusion and To improve muscle performance and motor function Re-Evaluation Ending Re-evaluation ending: Please do not hesitate to contact me at [phone] by phone or if you have questions or concerns regarding this new plan of care! Sincerely, Fabrice Villatoro DPT
--- NOTE | 2023-05-17 10:56 | HP.PTEVAL3 ---
Patient's Visit Information Visit Information Visit Information: SUE JACK is a 58 year old F referred to Physical Therapy by [facility] with a diagnosis of R ankle Fibrosis. Date of Evaluation: 05/09/23 Physical Therapist: Fabrice Villatoro DPT Visit Plan Frequency: 2x /Week Duration: 4 Weeks Plan: Work on ankle mobilizations into all directions. US to anterior ankle to assist with improved blood flow and aiding with scar tissue modification. Subjective Subjective: Pt. was sent back to PT for Fibrosis of R ankle. Pt. saw her physician whom wants her to work on ROM and mobility due to scar tissue build up. Pt. had continues to reports increased R ankle stiffness, increased in mornings and is having more pain with prolonged standing. Pt. has some N/T in her foot, but not constant. She also has a previous lumbar spine surgery. 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 Pt. is hopeful to increase her mobility and decrease the stiffness in her R ankle. Pt. is able to walk, do stairs and complete all work and recreational activities, but does have increased symptoms with all of these. She is stretching at home and working on ankle circles as well. Pain R ankle: Intensity: 4 Pain Intensity Range: 2 and 6 Comment: It is just really stiff Objective Objective: POSTURE: Pt. has decrease posture in stance. Pt. has equal wt. shift between BLEs. PALPATION: Pt. has tenderness at anterior tibial femoral joint and along anterior tib muscle belly and tendon. Pt. has some along longitudinal arch as well. NEURO: normal throughout. ROM: R ankle DF: 8 deg with over pressure, PF 41deg with over pressure, INV 8deg, EVR 6deg. Pt. reports stiffness at all end ranges of motion. MMT: R ankle: DF 5-/5, PF 5-/5, EVR 4+/5, INV 4+/5. Pt. has full knee strength. GAIT: Pt. has slight antalgic pattern during gait, but very minimally. Pt. has early heel off with R preswing, rest is fairly normal. STAIRS: Ascending- normal, Descending: early heel off with R stance phase. Goals Goal 1:: LTG: Pt. to be I with HEP for ankle ROM and mobility. Goal Time Frame: 4-6 Weeks Goal 2:: STG: pt. to reports 0-2/10 pain in R ankle with all mobility at home. Goal Time Frame: 2 Weeks Goal 3:: LTG: pt. to report 0-1/10 pain in R ankle with all work and recreational activities. Goal Time Frame: 4-6 Weeks Goal 4:: LTG: Pt. to have to increased ankle ROM symmetrical to L ankle. Goal Time Frame: 4-6 Weeks Rehabilitation Potential Physical Therapy Diagnosis: Pt. has signs and symptoms consistent with R ankle fibrosis. Pt. has marked ankle hypomobility in her R ankle with subsequent difficulty with walking and functional mobility. Pt. would benefit from PT to address the above mobility issues progressing back to all work and recreational activities without limitations. Rehabilitation Potential: Good Anticipated Interventions Patient/Client Instruction: Educate patient on: Condition, Plan of Care, Risk Factors and Benefits of Fitness Program For the Purpose of:: To foster healthy habits, To improve decision making, To facilitate caregiver knowledge, To improve self management, To prevent re-injury and To improve ability to perform tasks related to life management Therapeutic Exercise to Include: Strength training, Power training, Postural training, Passive ROM and Active ROM For the Purpose of:: To decrease pain, To increase ROM, To improve nutrient delivery to tissue, To increase oxygenation perfusion, To improve muscle performance and motor function, To improve ability to perform ADL's, To increase tolerance to activity/condition/position, To decrease soft tissue restriction and To increase flexibility/ROM Manual Therapy Techniques to Include: Mobilization and Soft tissue mobilization For the Purpose of:: To decrease pain, To increase ROM, To improve nutrient delivery to tissue, To increase oxygenation perfusion, To improve muscle performance and motor function, To decrease soft tissue restriction and To increase flexibility/ROM Ultrasound (thermal/non thermal): Yes For the Purpose of:: To decrease pain, To increase ROM, To improve nutrient delivery to tissue and To increase oxygenation perfusion text: Thank you for the opportunity to evaluate your patient. For Medicare and Medicare HMO plans, please review the plan of care and approve it. It will need to be FAXED BACK to us at [phone] for Medicare purposes. For Medicare only, by signing this I certify the plan of care. Please let me know if there are questions or concerns regarding this plan of care. Physician Signature: Date:
== END 2023-06-28 19:00 | disposition home or self-care (01) ==
LOC: PT 07:30
PROVIDERS: PCP Student in an Organized Health Care Education/Training Program
DX: S82.841D Displaced bimalleolar fracture of right lower leg, subsequent encounter for closed fracture with routine healing (principal)
CPT/HCPCS: 97035; 97110; 97140; 97161; 97164

== ENCOUNTER 2023-12-27 08:30 | Outpatient (RCR) | payer OTHER, SELFPAY | END 2023-12-27 19:00 | disposition home or self-care (01) | LOC: PT 08:30 | PROVIDERS: PCP Student in an Organized Health Care Education/Training Program; Visit Provider Student in an Organized Health Care Education/Training Program | DX: S82.841D Displaced bimalleolar fracture of right lower leg, subsequent encounter for closed fracture with routine healing (principal); M24.671 Ankylosis, right ankle; Z98.1 Arthrodesis status | CPT/HCPCS: 97110 ==

== ENCOUNTER 2024-12-18 07:30 | Outpatient (RCR) | payer OTHER, SELFPAY ==
--- NOTE | 2024-08-28 07:40 | HP.PTEVAL_ITS ---
Patient's Visit Information Visit Information Visit Information: SUE JACK is a 59 year old F referred to Physical Therapy by [facility] with a diagnosis of R ankle arthritis. Date of Evaluation: 07/15/24 Physical Therapist: Fabrice Villatoro DPT Visit Plan Frequency: 2x /Week Duration: 6 Weeks Plan: 1) joint mobilizations, G/S stretching 2) 4 way ankle strengthening 3) DN/IASTIM as needed. Subjective Subjective: Pt. is here today for her initial evaluation with diagnosis of R ankle arthritis. Pt. had an ORIF ~1.5 years ago and has been battling stiffness since. At this point the ORIF region is not too sore, but her anterior and lateral ankle are sore. Pt. denies N/T in her ankle, but occasional in her foot. Pt. reports no weakness and her leg does not want to give out on her. Pt. does have some pain at night, but has improved. 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 Pt. reports no cracking or popping in her ankle, her chief complaint is stiffness in her R ankle. Pt. is hopeful to reduce her stiffness in order to get back to all recreational and work activities with improved tolerated. Pain R ankle: Pain Intensity (Out of 10): 2 Pain Intensity Range: 0 and 5 Objective Objective: POSTURE: Pt. has decent posture in stance. Pt. has no large wt. shift to her L leg. Fairly equal wt. shifting noted. PALPATION: Pt. has some tenderness at lateral fibula and anterior talotibial joint. NEURO: normal throughout BLEs. ROM: R ankle: DF 12deg, PF 32deg, INV 8deg EVR 8deg. Pt. has good B knee ROM. Tightness in B HS noted. MMT: R ankel EVR 4+/5, DF 4+/5, PF 5-/5, INV 5/5. L ankle 5/5 throughout. GAIT: Pt. has fairly normal gait pattern without increase in symptoms. Pt. has slight toeing out, but minimal. No large antalgic pattern noted. STAIRS: pt. has slight increased early heel off during descending, rest is normal. No laxity felt, actually was more stiff than loose. No grinding felt either. Balance/Special Test Scores Lower Extremity Functional Score: 48 Goals Goal 1:: LTG: Pt. to be I with HEP. Goal Time Frame: 4-6 Weeks Goal 2:: STG: Pt. to be able to ambulate without increase in R ankle pain. Goal Time Frame: 2-4 Weeks Goal 3:: LTG: Pt. to have increased DF to normal without increase in symptoms. Goal Time Frame: 4-6 Weeks Goal 4:: LTG: Pt. to have 5/5 strength throughout R ankle. Goal Time Frame: 4-6 Weeks Rehabilitation Potential Physical Therapy Diagnosis: Pt. has signs and symptoms consistent with R ankle arthritis. Pt. has marked hypomobility, weakness and increased pain. PT. would benefit from PT to address the above limitations progressing back to all p revious levels of function without limitations. Rehabilitation Potential: Excellent Anticipated Interventions Patient/Client Instruction: Educate patient on: Condition, Plan of Care, Risk Factors and Benefits of Fitness Program For the Purpose of:: To foster healthy habits, To improve decision making, To facilitate caregiver knowledge, To improve self management, To prevent re-injury and To improve ability to perform tasks related to life management Therapeutic Exercise to Include: Strength training, Power training, Body mechanics, Postural training, Flexibilty training, Passive ROM and Active ROM For the Purpose of:: To decrease pain, To increase ROM, To improve nutrient delivery to tissue, To increase oxygenation perfusion, To improve muscle performance and motor function and To improve ability to perform ADL's Manual Therapy Techniques to Include: Passive ROM, Functional dry needling and Soft tissue mobilization For the Purpose of:: To decrease pain, To increase ROM, To improve nutrient d elivery to tissue, To increase oxygenation perfusion and To improve muscle performance and motor function Text: Thank you for the opportunity to evaluate your patient. For Medicare and Medicare HMO plans, please review the plan of care and approve it. It will need to be FAXED BACK to us at [phone] for Medicare purposes. For Medicare only, by signing this I certify the plan of care. Please let me know if there are questions or concerns regarding this plan of care. Physician Signature: Date:
--- NOTE | 2024-12-18 10:28 | HP.PTDCSUM ---
Discharge Summary D/C summary: It has been my pleasure to treat SUE JACK referred by [facility], with the diagnosis of R ankle arthritis for a total of 17 visit(s). Discharge Date: 12/18/24 Please see the following information for a summary of their discharge status. Subjective Subjective: Pt. reports overall doing well. 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 Pt. reports being 60% better overall. Pain R ankle: Pain Intensity (Out of 10): 1 Overall Improvement % Improvement: 60 Objective Objective/Function: Pt. is overall doing okay. She still has high levels of stiffness and soreness at times, but overall daily activities are good. Her PROM is actually decent. She complains of chronic stiffness, worse with high levels of activity. I am doing to DC her at this point in time. She is doing to work on ROM and progressive strengthening as tolerated. Pt. reports understanding. Goals Goal 1:: LTG: Pt. to be I with HEP. Goal Progress: Goal Met Goal 2:: STG: Pt. to be able to ambulate without increase in R ankle pain. Goal Progress: Goal Met Goal 3:: LTG: Pt. to have increased DF to normal without increase in symptoms. Goal Progress: Goal Met Goal 4:: LTG: Pt. to have 5/5 strength throughout R ankle. Goal Progress: Goal Met Plan Plan: Pt. to be DC from PT at this point in time. D/C Information d/c sentence: If there are questions or concerns regarding this patient's physical therapy, please feel free to call me at [phone]. Thank you for the referral of this patient. Sincerely, Fabrice Beaversos, DPT Balance/Gait/Functional tests Balance/Special Test Scores Lower Extremity Functional Score: 67 Improvement % Improvement: 60
== END 2024-12-18 19:00 | disposition home or self-care (01) ==
LOC: PT 07:30
PROVIDERS: PCP Student in an Organized Health Care Education/Training Program
DX: M19.071 Primary osteoarthritis, right ankle and foot (principal)
CPT/HCPCS: 97110; 97140; 97161; 97530